=== PATIENT | male | born 1980 ===

== ENCOUNTER 2020-02-24 08:59 | Outpatient (REF) | payer BC, SELFPAY ==
--- NOTE | 2020-02-24 09:22 | XR_ITS ---
EXAMINATION: XR KNEE, RIGHT CLINICAL INFORMATION: Pain COMPARISON: 05/19/2019 TECHNIQUE: Lateral and patella sunrise view of the right knee. FINDINGS: Bones and soft tissues are normal. No fracture or joint effusion. Alignment is anatomic. Joint spaces are well maintained. No abnormal soft tissue calcification. XR/XR knee RT 2V IMPRESSION: Limited lateral and patella sunrise view. No significant joint effusion.
== END 2020-02-24 09:00 | disposition home or self-care (01) ==
LOC: HO.HOSX 08:59
PROVIDERS: PCP Internal Medicine; Visit Provider Physician Assistant
DX: M17.11 Unilateral primary osteoarthritis, right knee (principal)
CPT/HCPCS: 73560

== ENCOUNTER → 2020-02-29 12:30 | Outpatient (BNVA) | payer BC, SELFPAY | PROVIDERS: PCP Internal Medicine; Referring Provider Internal Medicine; Visit Provider Orthopaedic Surgery | DX: M22.2X2 Patellofemoral disorders, left knee (principal); S83.242D Other tear of medial meniscus, current injury, left knee, subsequent encounter | CPT/HCPCS: 20610; J1040 ==

== ENCOUNTER 2020-05-09 14:53 | Outpatient (REF) | payer BC, SELFPAY ==
[2020-05-09 15:27] LABS: MANUAL DIFF FLAG NO
[2020-05-09 15:32] LABS: Basophils Percent Auto 0.3 % (0-2); Eosinophils Absolute Auto 0.2 X10*3/uL (0.0-0.4); Eosinophils Percent Auto 1.8 % (0-4); Hematocrit 42.1 % (42-52); Hemoglobin 14.5 g/dl (14.0-18.0); Imm Gran Abs Auto 0.04 X10*3/uL (0.00-0.03); Imm Gran Pct Auto 0.4 % (0.0-0.4); Lymphocytes Percent Auto 31.5 % (20-40); Mean Corpuscular HGB Conc 34.4 g/dl (31.0-36.0); Mean Corpuscular Hemoglobin 29.4 pg (27.0-33.0); Mean Corpuscular Volume 85.4 fL (80-98); Mean Platelet Volume 9.8 fL (9.4-12.4); Monocytes Absolute Auto 0.6 X10*3/uL (0.1-1.2); Neutrophils Absolute Auto 5.7 X10*3/uL (2.0-8.3); Platelet Count 248 X10*3/uL (160-400); Red Blood Count 4.93 X10*6/uL (4.60-5.80); Red Cell Distribution Width 12.5 % (11.0-16.0); White Blood Count 9.5 X10*3/uL (4.8-10.8)
[2020-05-09 15:47] LABS: Glucose Urine UA NEG (NEG); Leukocyte Esterase Urine NEG (NEG); Nitrite Urine NEG (NEG); PH 5.5 (5.0-8.0); Specific Gravity - Urine >= 1.030 (1.005-1.025); Urine Blood NEG (NEG); Urine Ketones NEG (NEG); Urine Protein NEG (NEG-TRACE)
[2020-05-09 15:51] LABS: Appearance Urine CLEAR; Color Urine YELLOW
[2020-05-09 15:59] LABS: Alanine Aminotransferase 30 U/L (0-40); Albumin Level 4.7 g/dL (3.5-5.0); Alkaline Phosphatase 86 U/L (39-117); Anion Gap 15 (12-20); Aspartate Amino Transferase 19 U/L (5-37); Bilirubin Total 1.4 mg/dL (0.0-1.0); Blood Urea Nitrogen 12 mg/dL (9-16); Calcium 9.2 mg/dL (8.4-10.2); Carbon Dioxide 23 mmol/L (22-29); Chloride 103 mmol/L (96-108); Cholesterol 181 mg/dL; Estimated Glomerular Filt Rate > 60; Glucose Fasting 79 mg/dL (60-99); HDL Cholesterol 38 mg/dL; LDL Cholesterol Calculated 113 mg/dl; Potassium 4.3 mmol/l (3.3-5.1); Sodium 137 mmol/L (135-145); Total Protein 7.9 g/dL (6.5-8.0); Triglycerides 154 mg/dL
[2020-05-09 16:19] LABS: Prostate Specific Antigen Scr 0.31 ng/mL (<0.05-4.0)
[2020-05-09 16:47] LABS: Reflex LDLD? No
== END 2020-05-09 14:54 | disposition home or self-care (01) ==
LOC: HO.LAB 14:53
PROVIDERS: PCP Internal Medicine; Visit Provider Internal Medicine
DX: Z00.00 Encounter for general adult medical examination without abnormal findings (principal); I10 Essential (primary) hypertension; Z12.5 Encounter for screening for malignant neoplasm of prostate
CPT/HCPCS: 36415; 80053; 80061; 81003; 84153; 85025

== ENCOUNTER 2020-11-06 10:19 | Outpatient (REF) | payer BC, SELFPAY ==
[2020-11-06 11:27] LABS: Alanine Aminotransferase 22 U/L (0-40); Albumin Level 4.5 g/dL (3.5-5.0); Alkaline Phosphatase 88 U/L (39-117); Aspartate Amino Transferase 17 U/L (5-37); Bilirubin Direct 0.6 mg/dL (0.0-0.5); Bilirubin Total 1.9 mg/dL (0.0-1.0); Cholesterol 158 mg/dL; HDL Cholesterol 33 mg/dL; LDL Cholesterol Calculated 97 mg/dl; Total Protein 7.6 g/dL (6.5-8.0); Triglycerides 142 mg/dL
[2020-11-06 11:55] LABS: Reflex LDLD? No
== END 2020-11-06 10:20 | disposition home or self-care (01) ==
LOC: HO.LNP 10:19
PROVIDERS: Visit Provider Internal Medicine
DX: E78.00 Pure hypercholesterolemia, unspecified (principal)
CPT/HCPCS: 80061; 80076

== ENCOUNTER 2021-07-16 15:36 | Outpatient (REF) | payer BC, SELFPAY ==
[2021-07-16 15:41] LABS: MANUAL DIFF FLAG NO
[2021-07-16 15:51] LABS: Appearance Urine CLEAR; Color Urine YELLOW; Glucose Urine UA NEG (NEG); Leukocyte Esterase Urine NEG (NEG); Nitrite Urine NEG (NEG); Specific Gravity - Urine 1.015 (1.005-1.025); Urine Blood NEG (NEG); Urine Ketones NEG (NEG); Urine Protein NEG (NEG-TRACE)
[2021-07-16 15:57] LABS: Alanine Aminotransferase 26 U/L (0-40); Albumin Level 4.6 g/dL (3.5-5.0); Alkaline Phosphatase 68 U/L (39-117); Anion Gap 13 (12-20); Aspartate Amino Transferase 17 U/L (5-37); Bilirubin Total 1.6 mg/dL (0.0-1.0); Blood Urea Nitrogen 12 mg/dL (9-16); Calcium 9.4 mg/dL (8.4-10.2); Carbon Dioxide 25 mmol/L (22-29); Chloride 104 mmol/L (96-108); Cholesterol 166 mg/dL; Estimated Glomerular Filt Rate > 60; Glucose Random 81 mg/dL (60-115); HDL Cholesterol 33 mg/dL; LDL Cholesterol Calculated 100 mg/dl; Potassium 3.9 mmol/L (3.3-5.1); Sodium 138 mmol/L (135-145); Total Protein 7.6 g/dL (6.5-8.0); Triglycerides 169 mg/dL
[2021-07-16 16:07] LABS: Basophils Percent Auto 0.2 % (0-2); Eosinophils Absolute Auto 0.1 X10*3/uL (0.0-0.4); Eosinophils Percent Auto 1.5 % (0-4); Hematocrit 40.8 % (42.0-52.0); Hemoglobin 14.2 g/dl (14.0-18.0); Imm Gran Abs Auto 0.02 X10*3/uL (0.00-0.03); Imm Gran Pct Auto 0.2 % (0.0-0.4); Lymphocytes Absolute Auto 3.2 X10*3/uL (1.2-4.9); Lymphocytes Percent Auto 37.4 % (20-40); Mean Corpuscular HGB Conc 34.8 g/dl (31.0-36.0); Mean Corpuscular Hemoglobin 29.5 pg (27.0-33.0); Mean Corpuscular Volume 84.8 fL (80.0-98.0); Mean Platelet Volume 10.1 fL (9.4-12.4); Monocytes Absolute Auto 0.6 X10*3/uL (0.1-1.2); Monocytes Percent Auto 6.6 % (2-11); Neutrophils Absolute Auto 4.7 x10*3/uL (2.0-8.3); Neutrophils Percent Auto 54.1 % (45-73); Platelet Count 229 X10*3/uL (160-400); Red Blood Count 4.81 X10*6/uL (4.60-5.80); Red Cell Distribution Width 12.7 % (11.0-16.0); White Blood Count 8.6 X10*3/uL (4.8-10.8)
== END 2021-07-16 15:37 | disposition home or self-care (01) ==
LOC: HO.LNP 15:36
PROVIDERS: Visit Provider Internal Medicine
DX: Z00.00 Encounter for general adult medical examination without abnormal findings (principal); I10 Essential (primary) hypertension; E78.00 Pure hypercholesterolemia, unspecified
CPT/HCPCS: 80053; 80061; 81003; 84153; 85025

== ENCOUNTER → 2021-09-30 10:07 | Outpatient (BNVA) | payer SELFPAY | PROVIDERS: PCP Internal Medicine; Visit Provider Physician Assistant Medical | DX: Z02.79 Encounter for issue of other medical certificate (principal) ==

== ENCOUNTER 2022-07-18 11:44 | Outpatient (REF) | payer OTHER, SELFPAY ==
[2022-07-18 11:46] LABS: MANUAL DIFF FLAG NO
[2022-07-18 12:35] LABS: Basophils Percent Auto 0.3 % (0-2); Eosinophils Absolute Auto 0.2 X10*3/uL (0.0-0.4); Eosinophils Percent Auto 2.5 % (0-4); Hematocrit 42.4 % (42.0-52.0); Hemoglobin 14.7 g/dl (14.0-18.0); Imm Gran Abs Auto 0.02 X10*3/uL (0.00-0.03); Imm Gran Pct Auto 0.3 % (0.0-0.4); Lymphocytes Absolute Auto 1.7 X10*3/uL (1.2-4.9); Lymphocytes Percent Auto 27.2 % (20-40); Mean Corpuscular HGB Conc 34.7 g/dl (31.0-36.0); Mean Corpuscular Hemoglobin 30.5 pg (27.0-33.0); Mean Platelet Volume 10.5 fL (9.4-12.4); Monocytes Absolute Auto 0.5 X10*3/uL (0.1-1.2); Monocytes Percent Auto 8.3 % (2-11); Neutrophils Absolute Auto 3.9 x10*3/uL (2.0-8.3); Neutrophils Percent Auto 61.4 % (45-73); Platelet Count 224 X10*3/uL (160-400); Red Blood Count 4.82 X10*6/uL (4.60-5.80); Red Cell Distribution Width 12.7 % (11.0-16.0); White Blood Count 6.4 X10*3/uL (4.8-10.8)
[2022-07-18 12:44] LABS: Appearance Urine Clear; Color Urine Yellow; Glucose Urine UA Negative (Negative); Leukocyte Esterase Urine Negative (Negative); Nitrite Urine Negative (Negative); PH 5.5 (5.0-9.0); Specific Gravity - Urine 1.025 (1.005-1.025); Urine Blood Negative (Negative); Urine Ketones Negative (Negative); Urine Protein Negative (Neg-Trace)
[2022-07-18 12:49] LABS: Bacteria Urine None Seen (None Seen); Hyaline Casts Urine 0-2 /LPF (0-2); RBC Urine 0-2 /HPF (0-2); Squamous Epithelial Cell Urine 0-2 /HPF (0-2); WBC Urine 0-5 /HPF (0-5)
[2022-07-18 13:09] LABS: Alanine Aminotransferase 23 U/L (0-40); Albumin Level 4.3 g/dL (3.5-5.0); Alkaline Phosphatase 72 U/L (39-117); Anion Gap 8 (12-20); Aspartate Amino Transferase 14 U/L (5-37); Blood Urea Nitrogen 19 mg/dL (9-16); Calcium 8.9 mg/dL (8.4-10.2); Carbon Dioxide 29 mmol/L (22-29); Chloride 107 mmol/L (96-108); Cholesterol 180 mg/dL; Estimated Glomerular Filt Rate > 60; Glucose Fasting 101 mg/dL (60-99); HDL Cholesterol 37 mg/dL; LDL Cholesterol Calculated 119 mg/dl; PSA,Total (Free>4and<10) 0.38 ng/mL (0.00-4.00); Potassium 4.3 mmol/L (3.3-5.1); Sodium 140 mmol/L (135-145); Triglycerides 121 mg/dL
== END 2022-07-18 11:45 | disposition home or self-care (01) ==
LOC: HO.LNP 11:44
PROVIDERS: Visit Provider Internal Medicine
DX: Z00.00 Encounter for general adult medical examination without abnormal findings (principal); Z12.5 Encounter for screening for malignant neoplasm of prostate; E78.00 Pure hypercholesterolemia, unspecified; I10 Essential (primary) hypertension
CPT/HCPCS: 80053; 80061; 81001; 84153; 85025

== ENCOUNTER → 2022-10-28 08:33 | Outpatient (BNVA) | payer SELFPAY | PROVIDERS: PCP Internal Medicine; Visit Provider Physician Assistant Medical | DX: Z02.79 Encounter for issue of other medical certificate (principal) ==

== ENCOUNTER 2022-11-04 11:44 | Outpatient (REF) | payer OTHER, SELFPAY ==
[2022-11-10 16:03] LABS: Testosterone, Total 320 ng/dL (250-1100)
== END 2022-11-04 11:45 | disposition home or self-care (01) ==
LOC: HO.LNP 11:44
PROVIDERS: Visit Provider Internal Medicine
DX: R53.83 Other fatigue (principal)
CPT/HCPCS: 84402; 84403

== ENCOUNTER 2022-12-08 08:33 | Outpatient (AMB) | payer OTHER, SELFPAY ==
--- NOTE | 2022-12-08 08:36 | A.OFFVIS_ITS ---
Intake Vital Signs 12/08/22 08:38 Weight 236 lb BP 102/72 Blood Pressure Location Lt brachial Position Sitting Pulse 60 Pulse Source Pulse Oximeter Pulse Oximetry (%) 99 Oxygen Delivery Method Room Air Intake Visit Reasons: 1 yr f/u cpap - LVM Intake Note: F/U SONIA Tie Sawyer Required: No Allergies No Known Allergies [No Known Allergies*] Allergy (Verified 12/08/22 08:37) HPI HPI Comments History of Present Illness Details 42 y/o male patient presents for follow up of SONIA on CPAP. The CPAP compliance and therapy response (08/29/22-11/26/22) reviewed with the patient. He is on APAP [id number]. The usage days 92% and the average usage hours 7 hrs. The median pressure was 10 and the AHI was 1.2/hr. Pt reports he can sleep about 7 hrs. His sleep quality has improve, and feels refreshed in the morning. . He has not received supplies for a while, and he did not contact his home care company yet. Pt reports he lost 20 lb since the last sleep study. [facility] Medical History History of anal fissures Social History Alcohol intake: never Patient Tobacco Use Status: Never used Tobacco Current occupation: Teacher - right handed Review of Systems Const All systems reviewed & are unremarkable except as noted in HPI and below Physical Exam Vital Signs: Last Vital Signs Pulse 60 12/08/22 08:38 BP 102/72 12/08/22 08:38 Pulse Ox 99 12/08/22 08:38 Oxygen Delivery Method Room Air 12/08/22 08:38 Const General: cooperative, healthy appearing and comfortable Nutritional Appearance: overweight Orientation/consciousness: patient oriented x3 HEENT Head: Yes normal to inspection, Yes normocephalic and Yes atraumatic Face and sinus: Yes normal facial exam Neuro General: patient oriented x3, tone normal, moves all extremities, Normal light touch and pain sensation and no focal motor deficits Assessment & Plan Assessment & Plan (1) Obstructive sleep apnea: Code(s): G47.33 - Obstructive sleep apnea (adult) (pediatric) Plan Continue CPAP 5-20 cmH2O. Compliance stressed, use CPAP nightly and more than 4 hours. Will consider to repeat sleep study if he lost >10 % his weight. [facility] information provided. Coding Level of Care Code Est Pt Level 3 (02609) Diagnoses Obstructive sleep apnea G47.33
[2022-12-08 08:38] VITALS: BP 102/72; PULSE 60; O2SAT 99
== END 2022-12-08 09:01 | disposition home or self-care (01) ==
PROVIDERS: PCP Internal Medicine; Visit Provider Nurse Practitioner Family
DX: G47.33 Obstructive sleep apnea (adult) (pediatric) (principal)
CPT/HCPCS: 99213

== ENCOUNTER → 2022-12-08 08:33 | Outpatient (BNVA) | payer OTHER, SELFPAY | PROVIDERS: PCP Internal Medicine; Visit Provider Nurse Practitioner Family | DX: G47.33 Obstructive sleep apnea (adult) (pediatric) (principal) ==

== ENCOUNTER 2023-03-09 10:33 | Outpatient (REF) | payer OTHER, SELFPAY ==
[2023-03-09 11:44] LABS: Alanine Aminotransferase 23 U/L (0-40); Albumin Level 4.4 g/dL (3.5-5.0); Alkaline Phosphatase 60 U/L (39-117); Aspartate Amino Transferase 20 U/L (5-37); Bilirubin Direct 0.2 mg/dL (0.0-0.5); Bilirubin Total 0.9 mg/dL (0.0-1.0); Total Protein 7.6 g/dL (6.5-8.0)
[2023-03-09 11:48] LABS: Cholesterol 180 mg/dL (<200); HDL Cholesterol 42 mg/dL (>40); LDL Cholesterol Calculated 114 mg/dL (<100); Triglycerides 120 mg/dL (<150)
[2023-03-09 11:51] LABS: Reflex LDLD? No
== END 2023-03-09 10:34 | disposition home or self-care (01) ==
LOC: HO.LNP 10:33
PROVIDERS: Visit Provider Internal Medicine
DX: E78.00 Pure hypercholesterolemia, unspecified (principal)
CPT/HCPCS: 80061; 80076

== ENCOUNTER 2023-03-19 12:21 | Outpatient (REF) | payer OTHER, SELFPAY ==
--- NOTE | ~2023-03-19 | XR_ITS ---
EXAMINATION: XR TIBIA AND FIBULA, LEFT CLINICAL INFORMATION: Bone cyst of tibia. COMPARISON: Prior radiographs, most recently 05/19/2019. TECHNIQUE: AP and lateral views of the left tibia and fibula were obtained. FINDINGS: Bony alignment and mineralization are normal. Again seen in the proximal tibial shaft is a 5.1 x 1.8 x 1.7 cm sclerotic, flocculent lesion. On 05/19/2019, this measured approximately 4.2 x 1.6 cm. No dislocation is seen. The articulations at the knee and ankle are unremarkable. A tiny posterior calcaneal spur is seen. No joint effusion is noted. There is no focal soft tissue swelling, gas or foreign body. XR/XR tibia fibula LT 2V IMPRESSION: There is mild interim increase in size of a sclerotic density within the proximal left tibial shaft, possibly an enchondroma or old bone infarction. If of clinical concern (i.e., history of pain at this location or known malignancy), this can be further evaluated with MRI.
== END 2023-03-19 12:22 | disposition home or self-care (01) ==
LOC: HO.XRAY 12:21
PROVIDERS: PCP Internal Medicine; Visit Provider Internal Medicine
DX: M85.662 Other cyst of bone, left lower leg (principal)
CPT/HCPCS: 73590

== ENCOUNTER 2023-09-03 11:46 | Outpatient (REF) | payer OTHER, SELFPAY ==
[2023-09-03 11:57] LABS: MANUAL DIFF FLAG NO
[2023-09-03 12:15] LABS: Appearance Urine Clear; Color Urine Yellow; Glucose Urine UA Negative (Negative); Leukocyte Esterase Urine Negative (Negative); Nitrite Urine Negative (Negative); PH 5.5 (5.0-9.0); Specific Gravity - Urine 1.025 (1.005-1.025); Urine Blood Negative (Negative); Urine Ketones Negative (Negative); Urine Protein Negative (Neg-Trace)
[2023-09-03 12:16] LABS: Basophils Percent Auto 0.3 % (0-2); Eosinophils Absolute Auto 0.3 X10*3/uL (0.0-0.4); Eosinophils Percent Auto 4.5 % (0-4); Hematocrit 45.1 % (42.0-52.0); Hemoglobin 15.6 g/dl (14.0-18.0); Imm Gran Abs Auto 0.02 X10*3/uL (0.00-0.03); Imm Gran Pct Auto 0.3 % (0.0-0.4); Lymphocytes Absolute Auto 2.2 X10*3/uL (1.2-4.9); Lymphocytes Percent Auto 35.4 % (20-40); Mean Corpuscular HGB Conc 34.6 g/dl (31.0-36.0); Mean Corpuscular Hemoglobin 30.1 pg (27.0-33.0); Mean Corpuscular Volume 86.9 fL (80.0-98.0); Monocytes Absolute Auto 0.5 X10*3/uL (0.1-1.2); Monocytes Percent Auto 7.9 % (2-11); Neutrophils Absolute Auto 3.2 x10*3/uL (2.0-8.3); Neutrophils Percent Auto 51.6 % (45-73); Platelet Count 244 X10*3/uL (160-400); Red Blood Count 5.19 X10*6/uL (4.60-5.80); Red Cell Distribution Width 13.2 % (11.0-16.0); White Blood Count 6.2 X10*3/uL (4.8-10.8)
[2023-09-03 12:26] LABS: Bacteria Urine None Seen (None Seen); Hyaline Casts Urine 0-2 /LPF (0-2); RBC Urine 0-2 /HPF (0-2); Squamous Epithelial Cell Urine 0-2 /HPF (0-2); WBC Urine 0-5 /HPF (0-5)
[2023-09-03 12:56] LABS: Alanine Aminotransferase 28 U/L (0-40); Albumin Level 4.6 g/dL (3.5-5.0); Alkaline Phosphatase 79 U/L (39-117); Anion Gap 13 (12-20); Aspartate Amino Transferase 23 U/L (5-37); Blood Urea Nitrogen 15 mg/dL (9-16); Calcium 9.5 mg/dL (8.4-10.2); Carbon Dioxide 25 mmol/L (22-29); Chloride 105 mmol/L (96-108); Cholesterol 172 mg/dL (<200); Estimated Glomerular Filt Rate > 60; Glucose Fasting 96 mg/dL (60-99); HDL Cholesterol 43 mg/dL (>40); LDL Cholesterol Calculated 105 mg/dL (<100); Potassium 4.2 mmol/L (3.3-5.1); Sodium 139 mmol/L (135-145); Total Protein 8.1 g/dL (6.5-8.0); Triglycerides 123 mg/dL (<150)
== END 2023-09-03 11:47 | disposition home or self-care (01) ==
LOC: HO.LNP 11:46
PROVIDERS: Visit Provider Internal Medicine
DX: Z00.00 Encounter for general adult medical examination without abnormal findings (principal); I10 Essential (primary) hypertension; E78.00 Pure hypercholesterolemia, unspecified; Z12.5 Encounter for screening for malignant neoplasm of prostate
CPT/HCPCS: 80053; 80061; 81001; 84153; 85025

== ENCOUNTER → 2023-10-26 08:02 | Outpatient (BNVA) | payer SELFPAY | PROVIDERS: PCP Internal Medicine; Visit Provider Internal Medicine | DX: Z02.79 Encounter for issue of other medical certificate (principal) ==

== ENCOUNTER → 2024-01-04 15:32 | Outpatient (BNVA) | payer OTHER, SELFPAY | PROVIDERS: Absent Provider Nurse Practitioner Family; PCP Internal Medicine; Visit Provider Nurse Practitioner Family | DX: G47.33 Obstructive sleep apnea (adult) (pediatric) (principal) ==

== ENCOUNTER → 2024-09-06 08:29 | Outpatient (RCR) | payer BC, SELFPAY ==
--- NOTE | 2020-03-23 18:07 | MHC.PT.EP ---
[facility] [place] Office [place] Office [place] Office [address] Moon Fuentes [address] [phone] F: [phone] F: [phone] F: [phone] F: [phone] Physical Therapy Plan of Care Date of Evaluation: 03/22/20 Date of Surgery: Diagnosis: Unilateral OA of R knee. 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 Pt is deemed an appropriate candidate to receive skilled PT in order to address his physical limitations to improve his functional ability. Frequency and Duration: The patient will be seen 2 x / wk x 5 wks. Short Term Goals: In 1 week: initiate HEP with evidence of compliance. in 3 weeks: TTP of R medial knee < 2+ (moderate); initial: 3+ (considerable) Usp Goals: In 5 weeks: improve R knee extension MMT to > 4+/5; initial: 4/5 with apprehension and mild pain. In 5 weeks: Pt will report no difficulty performing heavy activities at home d/t R knee pain; initial: moderate difficulty (LEFS). Treatment Plan: Modalities to reduce pain, spasms and effusion. Manual therapy to restore motion and function. Therapeutic exercise to improve strength and flexibility. Neuromuscular re-education for posture and balance. Therapeutic activities to return to functional activities of daily living. Please sign and return to therapist. Thank you for your referral.
--- NOTE | 2020-05-10 19:48 | MHC.PT.DC ---
[facility] [place] Office [place] Office [place] Office [address] Moon Fuentes 140 [facility] [phone] F: [phone] F: [phone] F: [phone] F: [phone] Physical Therapy Discharge Report Diagnosis: Unilateral OA of R knee. Date of Surgery: Date of Evaluation: 03/22/20 Date of Discharge: 05/10/20 Treatments to Date: 13 Cancellations to Date: 0 No Shows to Date: 0 Discharge Status: Achieved Goals Improved Function Independent with HEP Discharge Summary: Wilmar has been an active participant in his therapy in the clinic with inconsistent home program compliance who has met all of his therapeutic goals, he is I with hos home program and is in agreement with DC at this time. Subjective Lower Extremity Functional Index improved from 65% to 88% functional and he will be following up with a referral for orthotics. Electronically signed by: Mikey Oscar PT. Please sign and return to therapist. Thank you for your referral.
== END | disposition home or self-care (01) ==
LOC: HO.PTCHIC 03-22 15:57
PROVIDERS: PCP Internal Medicine; Visit Provider Physician Assistant
DX: M17.11 Unilateral primary osteoarthritis, right knee (principal)
CPT/HCPCS: 97014; 97110; 97140; 97161

== ENCOUNTER 2024-09-09 07:15 | Outpatient (REF) | payer OTHER, SELFPAY ==
--- OUTSIDE RECORDS SUMMARY | 2024-09-09 11:00 | XMS_ITS ---
Author Organization [facility] [address] Address [address] [place] [address] Care Team Providers Care Celery Cutter Name Role Phone Goldy Engel Primary Care Provider UnavailISIDRO [facility] [phone] Encounters Encounter Location Date Provider Diagnosis [facility] [address] [place] [address] 08/12/2024 ISIDRO ARRIOLA Plan Of Treatment Next Appt Details Provider Name:ISIDRO Antonio, 09/21/2024 08:15:00 AM, [address], [address], [place], [address], Progress Notes * Wilmar STACKDOB:1980 (44 yo M)Acc No.[id number]:08/12/2024 Patient:?SEDABritney SWARTZusz Provider:?ISIDRO ARRIOLA PA-C :1980???Age:44 Y???Sex:Male Issa e:08/12/2024 Address:[place] [address] Pcp:Goldy Engel Subjective: * Chief Complaints: * ??? * Medical History:? Objective: * Vitals:? Assessment: Plan: * Treatment: * Images: Billing Information: * Visit Code:? * Procedure Codes:? * Electronic signature of DENI ARRIOLA PA-C on 09/09/2024 at 11:00 AM EDT Sign off status: Pending * Provider:?ISIDRO ARRIOLA PA-C Date:? Generated for Donna reid/June/eTransmitting on:?09/09/2024 11:00 AM EDT
[2024-09-09 11:01] LABS: MANUAL DIFF FLAG NO
[2024-09-09 11:34] LABS: Appearance Urine Clear; Color Urine Yellow; Glucose Urine UA Negative (Negative); Leukocyte Esterase Urine Negative (Negative); Nitrite Urine Negative (Negative); PH 5.5 (5.0-9.0); Specific Gravity - Urine 1.015 (1.005-1.025); UMIC TRIGGER UACC YES; Urine Blood Large (3+) (Negative); Urine Ketones Negative (Negative); Urine Protein Negative (Neg-Trace)
[2024-09-09 11:36] LABS: Bacteria Urine None Seen (None Seen); Hyaline Casts Urine 0-2 /LPF (0-2); RBC Urine >20 /HPF (0-2); Squamous Epithelial Cell Urine 0-2 /HPF (0-2); WBC Urine 0-5 /HPF (0-5)
[2024-09-09 11:39] LABS: Basophils Percent Auto 0.4 % (0-2); Eosinophils Absolute Auto 0.4 X10*3/uL (0.0-0.4); Eosinophils Percent Auto 5.8 % (0-4); Hematocrit 42.3 % (42.0-52.0); Hemoglobin 14.9 g/dl (14.0-18.0); Imm Gran Abs Auto 0.02 X10*3/uL (0.00-0.03); Imm Gran Pct Auto 0.3 % (0.0-0.4); Lymphocytes Absolute Auto 1.7 X10*3/uL (1.2-4.9); Lymphocytes Percent Auto 24.7 % (20-40); Mean Corpuscular HGB Conc 35.2 g/dl (31.0-36.0); Mean Corpuscular Hemoglobin 30.6 pg (27.0-33.0); Mean Corpuscular Volume 86.9 fL (80.0-98.0); Mean Platelet Volume 9.9 fL (9.4-12.4); Monocytes Absolute Auto 0.5 X10*3/uL (0.1-1.2); Monocytes Percent Auto 6.9 % (2-11); Neutrophils Absolute Auto 4.3 x10*3/uL (2.0-8.3); Neutrophils Percent Auto 61.9 % (45-73); Platelet Count 246 X10*3/uL (160-400); Red Blood Count 4.87 X10*6/uL (4.60-5.80); Red Cell Distribution Width 13.3 % (11.0-16.0); White Blood Count 6.9 X10*3/uL (4.8-10.8)
[2024-09-09 11:58] LABS: Alanine Aminotransferase 20 U/L (0-40); Albumin Level 4.9 g/dL (3.5-5.0); Alkaline Phosphatase 54 U/L (39-117); Anion Gap 11 (12-20); Aspartate Amino Transferase 21 U/L (5-37); Bilirubin Total 2.8 mg/dL (0.0-1.0); Blood Urea Nitrogen 10 mg/dL (9-16); Calcium 10.6 mg/dL (8.4-10.2); Carbon Dioxide 27 mmol/L (22-29); Chloride 107 mmol/L (96-108); Cholesterol 142 mg/dL (<200); Estimated Glomerular Filt Rate > 60; Glucose Fasting 82 mg/dL (60-99); HDL Cholesterol 45 mg/dL (>40); LDL Cholesterol Calculated 80 mg/dL (<100); Potassium 4.3 mmol/L (3.3-5.1); Sodium 141 mmol/L (135-145); Total Protein 7.9 g/dL (6.5-8.0); Triglycerides 85 mg/dL (<150)
[2024-09-09 12:09] LABS: PSA,Total (Free>4and<10) 0.53 ng/mL (0.00-4.00)
== END 2024-09-09 07:16 | disposition home or self-care (01) ==
LOC: HO.LNP 07:15
PROVIDERS: Visit Provider Internal Medicine
DX: Z00.00 Encounter for general adult medical examination without abnormal findings (principal); I10 Essential (primary) hypertension; Z12.5 Encounter for screening for malignant neoplasm of prostate
CPT/HCPCS: 80053; 80061; 81001; 84153; 85025

== ENCOUNTER 2024-09-16 10:19 | Outpatient (REF) | payer OTHER, SELFPAY ==
--- OUTSIDE RECORDS SUMMARY | 2024-09-16 11:00 | XMS_ITS ---
Author Organization [facility] [address] Address [address] [place] [address] Care Team Providers Care Equity Research Analyst Name Role Phone Goldy Engel Primary Care Provider UnavailISIDRO Morton [facility] [phone] Encounters Encounter Location Date Provider Diagnosis [facility] [address] [place] [address] 08/12/2024 ISIDRO ARRIOLA Plan Of Treatment Next Appt Details Provider Name:ISIDRO Antonio, 09/30/2024 09:45:00 AM, [address], [address], [place], [address], Progress Notes * Wilmar STACKDOB:1980 (44 yo M)Acc No.[id number]:08/12/2024 Patient:?Britney STACKusz Provider:?ISIDRO ARRIOLA PA-C :1980???Age:44 Y???Sex:Male Issa e:08/12/2024 Address:[place] [address] Pcp:Goldy Engel Subjective: * Chief Complaints: * ??? * Medical History:? Objective: * Vitals:? Assessment: Plan: * Treatment: * Images: Billing Information: * Visit Code:? * Procedure Codes:? * Electronic signature of DENI ARRIOLA PA-C on 09/16/2024 at 11:00 AM EDT Sign off status: Pending * Provider:?ISIDRO ARRIOLA PA-C Date:? Generated for Donna reid/June/eTransmitting on:?09/16/2024 11:00 AM EDT
[2024-09-16 11:19] LABS: Appearance Urine Clear; Color Urine Yellow; Glucose Urine UA Negative (Negative); Leukocyte Esterase Urine Negative (Negative); Nitrite Urine Negative (Negative); PH 7.5 (5.0-9.0); Urine Blood Negative (Negative); Urine Ketones Negative (Negative); Urine Protein Negative (Neg-Trace)
[2024-09-16 11:33] LABS: Bacteria Urine None Seen (None Seen); Hyaline Casts Urine 0-2 /LPF (0-2); RBC Urine 0-2 /HPF (0-2); Squamous Epithelial Cell Urine 0-2 /HPF (0-2); WBC Urine 0-5 /HPF (0-5)
[2024-09-16 12:44] LABS: Alanine Aminotransferase 17 U/L (0-40); Albumin Level 4.8 g/dL (3.5-5.0); Alkaline Phosphatase 50 U/L (39-117); Aspartate Amino Transferase 20 U/L (5-37); Bilirubin Direct 0.4 mg/dL (0.0-0.5); Bilirubin Total 1.3 mg/dL (0.0-1.0); Calcium 9.6 mg/dL (8.4-10.2); Total Protein 7.6 g/dL (6.5-8.0)
== END 2024-09-16 10:20 | disposition home or self-care (01) ==
LOC: HO.LNP 10:19
PROVIDERS: Visit Provider Internal Medicine
DX: Z00.00 Encounter for general adult medical examination without abnormal findings (principal); R17 Unspecified jaundice; R31.9 Hematuria, unspecified; E83.52 Hypercalcemia
CPT/HCPCS: 80076; 81001; 82310

== ENCOUNTER 2024-09-27 09:54 | Outpatient (REF) | payer OTHER, SELFPAY ==
[2024-09-27 10:07] LABS: Appearance Urine Clear; Color Urine Yellow; Glucose Urine UA Negative (Negative); Leukocyte Esterase Urine Negative (Negative); Nitrite Urine Negative (Negative); Specific Gravity - Urine 1.015 (1.005-1.025); Urine Blood Negative (Negative); Urine Ketones Negative (Negative); Urine Protein Negative (Neg-Trace)
[2024-09-27 10:16] LABS: Bacteria Urine None Seen (None Seen); Hyaline Casts Urine 0-2 /LPF (0-2); RBC Urine 0-2 /HPF (0-2); Squamous Epithelial Cell Urine 0-2 /HPF (0-2); WBC Urine 0-5 /HPF (0-5)
--- OUTSIDE RECORDS SUMMARY | 2024-09-27 11:13 | XMS_ITS ---
Author Organization Goldy Engel MD Address [address] [place], [place] [id number] Care Team Providers Care Production Graphic Designer Name Role Phone MarenGladysn Primary Care Provider Results Component Value Reference Range Notes Complete Blood Count Auto Di ff Reviewed date:09/09/2024 01:19:30 PM Interpretation: Performing Lab:[facility], [address] [place] [phone] Notes/Report: White Blood Count 6.9 4.8-10.8 X10*3/uL Red Blood Count 4.87 4.60-5.80 X10*6/uL Hemoglobin 14.9 14.0-18.0 g/dl Hematocrit 42.3 42.0-52.0 % Mean Corpuscular Volume 86.9 80.0-98.0 fL Mean Corpuscular Hemoglobin 30.6 27.0-33.0 pg Mean Corpuscular HGB Conc 35.2 31.0-36.0 g/dl Red Cell Distribution Width 13.3 11.0-16.0 % Platelet Count 246 160-400 X10*3/uL Mean Platelet Volume 9.9 9.4-12.4 fL Neutrophils Percent Auto 61.9 45-73 % Imm Gran Pct Auto 0.3 0.0-0.4 % Lymphocytes Percent Auto 24.7 20-40 % Monocytes Percent Auto 6.9 2-11 % Eosinophils Percent Auto 5.8 0-4 % Basophils Percent Auto 0.4 0-2 % NRBC Pct Auto 0.0 0.0-0.2 /100WBC Neutrophils Absolute Auto 4.3 2.0-8.3 x10*3/u L Imm Gran Abs Auto 0.02 0.00-0.03 X10*3/uL Lymphocytes Absolute Auto 1.7 1.2-4.9 X10*3/u L Monocytes Absolute Auto 0.5 0.1-1.2 X10*3/uL Eosinophils Absolute Auto 0.4 0.0-0.4 X10*3/u L Basophils Absolute Auto 0.0 0.0-0.2 X10*3/uL NRBC Abs Auto 0.000 0.0-0.012 X10*3/uL [facility] [place]. Panel Fa st Reviewed date:09/09/2024 04:24:47 PM Interpretation: Performing Lab:[facility], [address] [place] [phone] Notes/Report: Sodium 141 135-145 mmol/L Potassium 4.3 3.3-5.1 mmol/L Chloride 107 96-108 mmol/L Carbon Dioxide 27 22-29 mmol/L Anion Gap 11 12-20 Blood Urea Nitrogen 10 9-16 mg/dL Creatinine 1.07 0.5-1.4 mg/dL Estimated Glomerular Filt Rate > 60 Chronic Kidney Disease: Estimated GFR < 60 mL/min/1.73m2 Severe Kidney Disease: Estimated GFR < 15 mL/min/1.73m2 Glucose Fasting 82 60-99 mg/dL Calcium 10.6 8.4-10.2 mg/dL Bilirubin Total 2.8 0.0-1.0 mg/dL Slight Icte emma. Aspartate Amino Transferase 21 5-37 U/L Alanine Aminotransferase 20 0-40 U/L Total Protein 7.9 6.5-8.0 g/dL Albumin Level 4.9 3.5-5.0 g/dL Alkaline Phosphatase 54 39-117 U/L Lipid Panel Reviewed date:09/09/2024 12:20:24 PM Interpretation: Performing Lab:[facility], [address] [place] [phone] Notes/Report: Triglycerides 85 <150 mg/dL Desirable Triglyceride: less than 150 mg/dL Borderline High Triglyceride 150-199 mg/dL High Triglyceride: 200-499 mg/dL Very High Triglyceride: greater than or equal to 5OO mg/dL Cholesterol 142 <200 mg/dL Desirable Cholesterol: less than 200 mg/dL Borderline High Cholesterol: 200-239 mg/dL High Cholesterol: greater than 239 mg/dL LDL Cholesterol Calculated 80 <100 mg/dL Desirable LDL: less than 100 mg/dL Near Optimal/Above Optimal LDL: 110-129 mg/dL Borderline High LDL: 130-159 mg/dL High LDL: 160-189 mg/dL Very High LDL: greater than or equal to 190 mg/dL HDL Cholesterol 45 >40 mg/dL Desirable HDL: greater than 40 mg/dL Note: This HDL assay may give artificially low results in patients with liver disease. PSA,Total (Free>4and<10) Reviewed date:09/09/2024 12:18:15 PM Interpretation: Performing Lab:[facility], [address] [place] [phone] Notes/Report: PSA,Total (Free>4and<10) 0.53 0.00-4.00 ng/mL A Free PSA was not performed: The percentage of Free PSA can be used to enhance the differentiation of prostate cancer from benign prostatic disease in subjects whose PSA levels are between 4.0 and 10.0 ng/mL. For subjects whose PSA levels are below 4.0 or above 10.0 ng/mL, the risk of prostate cancer is determined on the basis of the PSA alone. Therefore the % Free PSA is recommended only for those subjects whose PSA levels are between 4.0 and 10.0 ng/mL. PSA methodology: Jefferson Alinity i Chemiluminescent Microparticle Immunoassay (CMIA) UA ClnCatch+Micro w/rflx Cul t Reviewed date:09/16/2024 10:11:43 AM Interpretation:CBACK 09/16 URINE Performing Lab:[facility], [address] [facility], [place] [address] Notes/Report: Urine, Clean Catch Color Urine Yellow Appearance Urine Clear PH 5.5 5.0-9.0 Glucose Urine UA Negative Negative mg/dL Urine Blood Large (3+) Negative Specific [place] - Urine 1.015 1.005-1.025 Urine Protein Negative Neg-Trace mg/dL Urine Ketones Negative Negative mg/dL Nitrite Urine Negative Negative Leukocyte Esterase Urine Negative Negative RBC Urine >20 0-2 /HPF WBC Urine 0-5 0-5 /HPF Squamous Epithelial Cell Urine 0-2 0-2 /HPF Bacteria Urine None Seen None Seen Hyaline Casts Urine 0-2 0-2 /LPF REASON FOR VISIT FASTING LABS, CBACK URINE Encounters Encounter Location Date Provider Diagnosis Goldy Engel MD [address] [place] [phone] 09/09/2024 Goldy nEgel Blood tests for rout ine general physical examination Z00.00 ; Essential hypertension I10 and Hypercholesterolemia E78.00 Assessments Encounter Date Diagnosis (ICD Code) Assessment Notes Treatment Notes Treatment Clinical Notes Section Notes 09/09/2024 [address] tests [address] rout ine general physical examination (ICD-10 - Z00.00) 09/09/2024 Essential hypertensi on (ICD-10 - I10) 09/09/2024 Hypercholesterolemia (ICD-10 - E78.00) Plan Of Treatment Next Appt Details Provider Name:Goldy owens, 10/10/2024 02:00:00 PM, [address] [place] [address], [address], [phone], Provider Name:Goldy owens, 09/14/2025 07:15:00 AM, [address] [place] [address], [address], [phone], Provider Name:Goldy owens, 09/19/2025 09:30:00 AM, [address] [place] [address], [phone], Progress Notes * Wilmar STACK RDOB:[birth year] (44 yo M)Acc No.[id number]:09/09/2024 Progress Note Patient:?Wilmar STACK Provider:?Goldy Engel MD :1980???Age:44 Y???Sex:Male Issa e:09/09/2024 Address:[facility] [place] , [id number] Subjective: * Chief Complaints: * ???1. FASTING LABS. 2. CBACK URINE. * Medical History:? Objective: * Vitals:? Assessment: * Assessment: 1.?Blood tests for routine g eneral physical examination - Z00.00 (Primary)???2.?Essential hypertension - I10???3.?Hypercholesterolemia - E78.00??? Plan: * Treatment: 2.?Essential hypertension?LAB: Complete Blood Count Auto Diff (Collection Date & Time - 09/09/2024 07:15 AM) ?LAB: [facility] [place]. Panel Fast (Collection Date & Time - 09/09/2024 07:15 AM) ?LAB: Lipid Panel (Collection Date & Time - 09/09/2024 07:15 AM) ?LAB: PSA,Total (Free>4and<10) (Collection Date & Time - 09/09/2024 07:15 AM) ?LAB: UA ClnCatch+Micro w/rflx Cult (Collection Date & Time - 09/09/2024 07:15 AM) 3.?Hypercholesterolemia?LAB: Complete Blood Count Auto Diff (Collection Date & Time - 09/09/2024 07:15 AM) ?LAB: [facility] [place]. Panel Fast (Collection Date & Time - 09/09/2024 07:15 AM) ?LAB: Lipid Panel (Collection Date & Time - 09/09/2024 07:15 AM) ?LAB: PSA,Total (Free>4and<10) (Collection Date & Time - 09/09/2024 07:15 AM) ?LAB: UA ClnCatch+Micro w/rflx Cult (Collection Date & Time - 09/09/2024 07:15 AM) * Procedure Codes:?50797 VENIP UNCT, ROUTINE* * * The named appointment provid er may or may not be the originator of this progress note, and it is not deemed complete until electronically signed by the appointment provider. Sign off status: Pending * Provider:?Goldy Engel MD Date:?0 09/09/2024 Generated for Donna reid/June/Elizabethitting on:?09/27/2024 11:13 AM EDT
== END 2024-09-27 09:55 | disposition home or self-care (01) ==
LOC: HO.LNP 09:54
PROVIDERS: Visit Provider Internal Medicine
DX: R31.9 Hematuria, unspecified (principal)
CPT/HCPCS: 81001

== ENCOUNTER → 2024-10-19 08:46 | Outpatient (BNVA) | payer SELFPAY | PROVIDERS: PCP Internal Medicine; Visit Provider Physician Assistant | DX: Z02.79 Encounter for issue of other medical certificate (principal) ==

== ENCOUNTER 2024-11-17 08:18 | Outpatient (AMB) | payer OTHER, SELFPAY ==
--- OUTSIDE RECORDS SUMMARY | 2024-10-10 10:00 | XMS_ITS ---
Author Organization Goldy Engel MD Address [address] [place], [place] [id number] Care Team Providers Care Digital Sales Executive Name Role Phone Maren Goldy Primary Care Provider [phone] Allergies No Known Allergies REASON FOR VISIT 4 week Medications Medication SIG (Take, Route, Frequency, Duration) Notes Start Date End Date Status Indomethacin 50 MG 1 capsule with food or milk Orally Three times a day for 5 days 09/29/2017 Not-Taking Fluconazole 150 MG 2 tablets Oral and repeat in one week for 1 days 09/27/2020 Active Zepbound 5 MG/0.5ML 0.5 mL Subcutaneous for 30 day(s) Active Fluticasone Propionate 50 MCG/ACT 1 spray in each nostril Nasally Once a day for 30 day(s) 02/15/2021 Not-Taking Hydrocortisone-Acetic Acid 1-2 % 3 drops into affected ear Otic Three times a day for 10 day(s) 02/15/2021 Not-Taking Vital Signs Blood pressure systolic 118 mm Hg 10/11/19 25 Blood pressure diastolic 70 mm Hg 025 Height 71 in 10/10/2024 Weight 195 lbs 10/10/2024 BMI 27.19 kg/m2 10/10/2024 Encounters Encounter Location Date Provider Diagnosis Goldy Engel MD [address] [place] [phone] 10/10/2024 Goldy Engel Essential hypertension I10 and Hypercalcemia E83.52 Assessments Encounter Date Diagnosis (ICD Code) Assessment Notes Treatment Notes Treatment Clinical Notes Section Notes 10/10/2024 Essential hypertension (ICD-10 - I10) doing well after losing so much weight, will continue to monitor 10/10/2024 Hypercalcemia (ICD-10 - E83.52) has returned to normal, will continue to monitor Plan Of Treatment Treatment Notes Assessment Notes Essential hypertension doing well after losing so much weight, will continue to monitor Hypercalcemia has returned to norm al, will continue to monitor Next Appt Details Follow Up: 6 Months, Reason: Provider Name:Goldy owens, 04/07/2025 10:00:00 AM, [address] [place] [address], [address], [phone], Provider Name:Goldy owens, 09/14/2025 07:15:00 AM, [address] [place] [address], [address], [phone], Provider Name:Goldy owens, 09/19/2025 09:30:00 AM, [address] [place] [address], [phone], Progress Notes * Wilmar STACK RDOB:[birth year] (44 yo M)Acc No.[id number]:10/10/2024 Progress Notes Patient: Murphy Wilmar ELLIS Provider: Natalio Engel MD :1980 A ge:44 Y S ex:Male Date:10/10/2024 Address:[address] [place] [id number] Subjective: * Chief Complaints: * 4 week * HPI: S ymptom(s): patientis a 44 yo male here for 4 week follow up visit. * ROS: G eneral/Constitutional: Denies C hills. D enies F atigue. D enies F ever. D enies H eadache. E NT: Denies S ore throat. R espiratory: Denies C ough. D enies S hortness of breath at rest. D enies S hortness of breath with exertion. G astrointestinal: Denies D iarrhea. D enies N ausea. * Medical History: * Surgical History: * Hospitalization/Major Diagno stic Procedure: * Medications: T akingZepbound 5 MG/0.5ML Solution Auto-injector 0.5 mL Subcutaneous Fluconazole 150 MG Tablet 2 tablets Oral and repeat in one week Taking Zepbound 5 MG/0.5ML Solution Auto-injector 0.5 mL Subcutaneous Taking Fluconazole 150 MG Tablet 2 tablets Oral and repeat in one week Not-Taking/PRNIndomethacin 50 MG Capsule 1 capsule with food or milk Orally Three times a day Hydrocortisone-Acetic Acid 1-2 % Solution 3 drops into affected ear Otic Three times a day Fluticasone Propionate 50 MCG/ACT Suspension 1 spray in each nostril Nasally Once a day Medication List reviewed and reconciled with the patientNot-Taking/PRN Indomethacin 50 MG Capsule 1 capsule with food or milk Orally Three times a day Not-Taking/PRN Hydrocortisone-Acetic Acid 1-2 % Solution 3 drops into affected ear Otic Three times a day Not-Taking/PRN Fluticasone Propionate 50 MCG/ACT Suspension 1 spray in each nostril Nasally Once a day Medication List reviewed and reconciled with the patient * Allergies: N .K.D.A.yes[Allergies Verified] Objective: * Vitals: H t: 71, Wt: 195, BMI:27.19, BP:118/70, Wt-k.45. * Examination: G eneral Examination: GENERAL APPEARANCE: a lert, well hydrated, in no distress.? HEAD: n ormocephalic. EYES: e xtraocular movement full and smooth. SKIN: g ood turgor. HEART: r egular rate and rhythm, no murmurs, rubs, gallops.? LUNGS: n o wheezes, rales, rhonchi, good air movement, clear to auscultation bilaterally. Assessment: * Assessment: 1. E ssential hypertension - I10 (Primary) 2 . H ypercalcemia - E83.52 Plan: * Treatment: 2. H ypercalcemia Notes: has returned to normal, will continue to monitor * Procedure Codes: * Follow Up: 6 Months * * Sign off status: Completed true * Provider: Natalio Engel MD Date: 0 10/10/2024 Generated for Donna reid/June/Elizabethitting on: 0 11/17/2024 08:26 AM EDT History and Physical Notes * HPI (History of Present Illness) Category Sub-Category Detail Notes Category Not es Symptom(s) patientis a 44 yo male here for 4 week follow up visit Examination Category Sub-Category Detail Notes Category Not es General Examination GENERAL APPEARANCE: alert, w ell hydrated, in no distress HEAD: normocephalic EYES: extraocular movement full and smooth HEART: regular rate and rhy thm, no murmurs, rubs, gallops LUNGS: no wheezes, rales, r honchi, good air movement, clear to auscultation bilaterally SKIN: good turgor
--- OUTSIDE RECORDS SUMMARY | 2024-11-17 08:26 | XMS_ITS | Patient Health Record ---
Author Organization [facility] [address] Address [address] [place] [address] Care Team Providers [facility] [employer] Name Role Phone UrvashiGoldy lock Primary Care Provider [facility] ISIDRO Savage Unavailable [phone] Allergies No Known Allergies Results Component Value Reference Range Notes TSH CASCADE Reviewed date:02/14/2024 11:26:47 AM Interpretation: Performing Lab: Notes/Report: [facility] [employer], [place] [address] Hedis Coordinator - Avis Santos MD TSH CASCADE 2.14 0.40-4.00 uIU/ml LIPID PROFILE Reviewed date:02/14/2024 11:26:58 AM Interpretation: Performing Lab: Notes/Report: CHOLESTEROL 140 0-200 mg/dL TRIGLYCERIDES 62 0-150 mg/dL HDL CHOLESTEROL 43 >40 mg/dL LDL CALCULATED 85 0-100 mg/dL TC-HDLC RATIO 3.3 0-4.4 mg/dL CBC WITH AUTO DIFF Reviewed date:02/14/2024 11:27:17 AM Interpretation: Performing Lab: Notes/Report: Original Ordering Provider: ISIDRO ARRIOLA [facility] [employer], a member of [address] [address] Hedis Coordinator - Avis Santos MD WBC 7.0 4.8-10.8 x10-3/uL RBC 4.9 4.5-5.5 x10-6/uL HEMOGLOBIN 14.7 13.5-17.5 g/dL HEMATOCRIT 43.7 42-54 % MCV 89.0 79-98 fL MCH 29.9 27-32 pg MCHC 33.6 32-37 g/dL RDW 12.5 11-15 % PLT COUNT 250 130-400 x10-3/uL MEAN PLATELET VOLUME 10.4 7-11 fL NRBC % AUTO 0.0 <1 % NEUT % 62.6 LYMPH % 30.3 MONO % 5.3 EOS % 1.4 BASO % 0.1 IMMATURE GRANULOCYTES % 0.3 NRBC # AUTO 0.00 <0.1 x10-3/uL ABSOLUTE NEUT 4.41 1.5-7.0 x10-3/uL LYMPH # 2.13 1-5.0 x10-3/uL MONO # 0.37 0.2-1.0 x10-3/uL EOS # 0.10 0-0.5 x10-3/uL BASO # 0.01 0-0.2 x10-3/uL IMMATURE GRANULOCYTES # 0.02 0-0.03 x10-3/uL COMPREHENSIVE METABOLIC PANE L Reviewed date:02/14/2024 11:27:08 AM Interpretation: Performing Lab: Notes/Report: Note Original Orderi ng Provider: ISIDRO RARIOLA GLUCOSE 78 70-100 mg/dL Reference range applicable to fasting specimens only BUN 13 5-25 mg/dL CREAT 1.03 0.7-1.3 mg/dL GLOMERULAR FILTRATION RATE 92 >60 This eGFR result was calculated using the CKD-EPI 2020 Creatinine Equation SODIUM 139 135-145 mEq/L POTASSIUM 4.3 3.5-5.5 mmol/L CHLORIDE 107 96-110 mmol/L CO2 25 21-32 mmol/L ANION GAP 7 3-11 CALCIUM 9.1 8.5-10.5 mg/dL TOTAL PROTEIN 7.7 6.0-8.0 G/dL ALBUMIN 4.5 3.2-5.0 G/dL BILI,TOTAL 1.0 0.0-1.4 mg/dL SGOT 12 10-42 U/L SGPT 24 10-60 U/L ALK PHOS 69 42-121 U/L Reason For Referral No Information Medications Medication SIG (Take, Route, Fr equency, Duration) Notes Start Date End Date Status Zepbound 10 MG/0.5ML Inject 10mg Subcuta neous weekly; Duration: 30 days Active Problems Problem Type SNOMED Code ICD Code Onset Dates Problem Status W/U Status Risk Notes Problem Overweight (911674167) Overweight (BMI 25.0-29.9) (E66.3) Active confirmed Problem Obstructive sleep apnea syndrome (15834944) SONIA on CPAP (G47.33) Active confirmed Problem History of obesity (597148965) History of obesity (Z86.39) Active confirmed Vital Signs Heart Rate 68 /min 11/11/2024 38 Blood pressure diastolic 80 mm Hg 11/11/2024 38 Oximetry 99 % 11/11/2024 38 Height 70 in 11/11/2024 38 Blood pressure systolic 128 mm Hg 11/11/2024 38 Weight 199.7 lbs 11/11/2024 38 BMI 28.65 kg/m2 11/11/2024 38 Encounters Encounter Location Date Provider Diagnosis [facility] [address] [address] 01/21/2024 ISIDRO ZEINAB Obesity (BMI 30-39.9 ) E66.9 ; BMI 35.0-35.9,adult Z68.35 and SONIA on CPAP G47.33 [facility] [address] [address] 02/22/2024 ISIDRO ZEINAB Obesity (BMI 30-39.9 ) E66.9 ; BMI 33.0-33.9,adult Z68.33 and SONIA on CPAP G47.33 [facility] [address] [address] 03/22/2024 ISIDRO ZEINAB Obesity (BMI 30-39.9 ) E66.9 ; BMI 32.0-32.9,adult Z68.32 and SONIA on CPAP G47.33 [facility] [address] [address] 04/18/2024 ISIDRO ZEINAB Obesity (BMI 30-39.9 ) E66.9 ; BMI 32.0-32.9,adult Z68.32 and SONIA on CPAP G47.33 [facility] [address] [address] 05/30/2024 ISIDRO ZEINAB Obesity (BMI 30-39.9 ) E66.9 ; BMI 30.0-30.9,adult Z68.30 and SONIA on CPAP G47.33 [facility] [address] [address] 07/11/2024 ISIDRO ZEINAB Overweight (BMI 25.0-29.9) E66.3 ; BMI 29.0-29.9,adult Z68.29 and SONIA on CPAP G47.33 [facility] [address] [address] 08/15/2024 [facility] Overweight (BMI 25.0-29.9) E66.3 ; BMI 28.0-28.9,adult Z68.28 ; SONIA on CPAP G47.33 and Nutritional counseling Z71.3 [facility] [address] [address] 09/30/2024 [facility] BMI 28.0-28.9,adult Z68.28 ; Overweight (BMI 25.0-29.9) E66.3 ; SONIA on CPAP G47.33 ; Nutritional counseling Z71.3 and Encounter for examination of blood pressure without abnormal findings Z01.30 [facility] [address] 11/11/2024 [facility] BMI 28.0-28.9,adult Z68.28 ; Overweight (BMI 25.0-29.9) E66.3 ; SONIA on CPAP G47.33 ; Nutritional counseling Z71.3 and Encounter for examination of blood pressure without abnormal findings Z01.30 [facility] [address] [address] 01/20/2024 [facility] [address] [address] 01/21/2024 [facility] [address] [address] 03/29/2024 [facility] Obesity (BMI 30-39.9 ) E66.9 [facility] [address] [address] 04/14/2024 [facility] [address] 10/10/2024 [facility] [address] [place] [address] 10/20/2024 ISIDRO [place] Assessments Encounter Date Diagnosis (ICD Code) Assessment Notes Treatment Notes Treatment Clinical Notes Section Notes 01/21/2024 Obesity (BMI 30-39.9) (ICD-10 - E66.9) Wilmar is a 43-year-old male with a PMH of send with CPAP that presents for weight management consult. Patient was reassured and welcomed to the practice. Discussed [facility] holistic and medical approach to weight loss with emphasis on lifestyle modification. Patient is educated that a healthy lifestyle aids in combating obesity as well as reducing the risk of developing obesity-related medical complications including but not limited to diabetes and cardiovascular disease. Detailed education provided about taking steps to initiate sustainable lifestyle changes including incorporating regular physical activity, making healthy diet choices, and prioritizing mental health. Information provided about literature including The Food Rules by Danie Omer and Eat Fat Get Lean by Dr John Kiser. Handouts including lifestyle checklist, protein content of food, low calorie snacks, and cholesterol information sheet provided. Diagnostic testing/ SECA scale offered. Discussed the importance of regular SECA scale measurements to ensure healthy weight loss. 01/21/2024: Weight: 247, BMI: 35.4. Reviewed SECA/goals for implementing sustainable lifestyle changes. Patient is encouraged to increase physical activity, goal 8-10k steps/day. Also discussed the importance of strength training with proper safety/body mechanics for maintenance of muscle mass/bone health. Patient encouraged to drink 60-80oz water/day. Reviewed nutrition, recommending food diary x 1 week to ensure adequate caloric/protein intake. Goal of 100g protein/day. Patient does endorse difficulty sleeping discussed options to aid with improved quality of sleep including melatonin v. Magnesium glycinate v. Cortisol nursing manager. Patient interested in cortisol nursing manager, purchased in office today. Reviewed risks, benefits, and side effects of weight management medications including phentermine, Topamax, Contrave, metformin, and GLP-1 agonist.Patient would like to try GLP-1 agonist Zepbound, Rx for 2.5 mg SC weekly sent to pharmacy. Proper use/administration reviewed in office. Patient denies personal/family history of M EN syndrome/medullary thyroid cancer. Reviewed expectations for PA process/insurance coverage. Patient will work on lifestyle over the next month while he waits to hear back from the insurance company. After consultation and careful review of medical history, this patient would benefit from Zepbound based off of the following criteria met: Patient is over the age of 18 with a BMI of 35. Additional comorbidities include SONIA with CPAP. Patient has trialed other methods of weight loss including improving diet and exercise without success. This medication is prescribed by or in consultation with a board-certified obesity and weight management physician (Dr. Titus Moyer or Dr. Karen Moyer). All questions answered to the patient's satisfaction. Patient demonstrates understanding of diagnosis and treatments discussed. Follow-up in 4 weeks, sooner should any questions/concerns arise. Case discussed with collaborating physician Sammi Moyer who has reviewed the assessment/plan. Chart, medications, labs, and vital signs reviewed. Dictation completed with the use of [facility] voice recognition software, prone to medical misidentifications and grammatical errors. All errors are unintentional. Although the practitioner does try to identify and correct errors, some may be present. Please do not hesitate to contact the practitioner for clarification. 01/21/2024 BMI 35.0-35.9,adul t (ICD-10 - Z68.35) Wilmar is a 43-year-old male with a PMH of send with CPAP that presents for weight management consult. Patient was reassured and welcomed to the practice. Discussed [facility] holistic and medical approach to weight loss with emphasis on lifestyle modification. Patient is educated that a healthy lifestyle aids in combating obesity as well as reducing the risk of developing obesity-related medical complications including but not limited to diabetes and cardiovascular disease. Detailed education provided about taking steps to initiate sustainable lifestyle changes including incorporating regular physical activity, making healthy diet choices, and prioritizing mental health. Information provided about literature including The Food Rules by Danie Omer and Eat Fat Get Lean by Dr John Kiser. Handouts including lifestyle checklist, protein content of food, low calorie snacks, and cholesterol information sheet provided. Diagnostic testing/ SECA scale offered. Discussed the importance of regular SECA scale measurements to ensure healthy weight loss. 01/21/2024: Weight: 247, BMI: 35.4. Reviewed SECA/goals for implementing sustainable lifestyle changes. Patient is encouraged to increase physical activity, goal 8-10k steps/day. Also discussed the importance of strength training with proper safety/body mechanics for maintenance of muscle mass/bone health. Patient encouraged to drink 60-80oz water/day. Reviewed nutrition, recommending food diary x 1 week to ensure adequate caloric/protein intake. Goal of 100g protein/day. Patient does endorse difficulty sleeping discussed options to aid with improved quality of sleep including melatonin v. Magnesium glycinate v. Cortisol nursing manager. Patient interested in cortisol nursing manager, purchased in office today. Reviewed risks, benefits, and side effects of weight management medications including phentermine, Topamax, Contrave, metformin, and GLP-1 agonist.Patient would like to try GLP-1 agonist Zepbound, Rx for 2.5 mg SC weekly sent to pharmacy. Proper use/administration reviewed in office. Patient denies personal/family history of M EN syndrome/medullary thyroid cancer. Reviewed expectations for PA process/insurance coverage. Patient will work on lifestyle over the next month while he waits to hear back from the insurance company. After consultation and careful review of medical history, this patient would benefit from Zepbound based off of the following criteria met: Patient is over the age of 17 with a BMI of 35. Additional comorbidities include SONIA with CPAP. Patient has trialed other methods of weight loss including improving diet and exercise without success. This medication is prescribed by or in consultation with a board-certified obesity and weight management physician (Dr. Titus Moyer or Dr. Karen Moyer). All questions answered to the patient's satisfaction. Patient demonstrates understanding of diagnosis and treatments discussed. Follow-up in 4 weeks, sooner should any questions/concerns arise. Case discussed with collaborating physician Sammi Moyer who has reviewed the assessment/plan. Chart, medications, labs, and vital signs reviewed. Dictation completed with the use of [facility] voice recognition software, prone to medical misidentifications and grammatical errors. All errors are unintentional. Although the practitioner does try to identify and correct errors, some may be present. Please do not hesitate to contact the practitioner for clarification. 02/22/2024 Obesity (BMI 30-39.9) (ICD-10 - E66.9) Wilmar is a 43-year-old male with a PMH of send with CPAP that presents for weight management follow-up. Reviewed [facility] holistic and medical approach to weight loss with emphasis on lifestyle modification. 02/22/2024: Weight: 235, BMI: 33.7.Patient congratulated on over 12 pound weight loss. SECA reviewed, reveals 7 pounds of fat loss with mild loss of muscle mass. The patient is encouraged to continue making health-conscious diet choices and to increase water intake, goal 60 ounces/day. The patient is encouraged to continue with adequate protein intake and to continue increasing physical activity with goal of maintenance of muscle mass. Plan to increase dose to 5 mg SC weekly. 01/21/2024: Weight: 247, BMI: 35.4. Reviewed SECA/goals for implementing sustainable lifestyle changes. Patient is encouraged to increase physical activity, goal 8-10k steps/day. Also discussed the importance of strength training with proper safety/body mechanics for maintenance of muscle mass/bone health. Patient encouraged to drink 60-80oz water/day. Reviewed nutrition, recommending food diary x 1 week to ensure adequate caloric/protein intake. Goal of 100g protein/day. Patient does endorse difficulty sleeping discussed options to aid with improved quality of sleep including melatonin v. Magnesium glycinate v. Cortisol nursing manager. Patient interested in cortisol nursing manager, purchased in office today. Reviewed risks, benefits, and side effects of weight management medications including phentermine, Topamax, Contrave, metformin, and GLP-1 agonist.Patient would like to try GLP-1 agonist Zepbound, Rx for 2.5 mg SC weekly sent to pharmacy. Proper use/administration reviewed in office. Patient denies personal/family history of M EN syndrome/medullary thyroid cancer. Reviewed expectations for PA process/insurance coverage. Patient will work on lifestyle over the next month while he waits to hear back from the insurance company. All questions answered to the patient's satisfaction. Patient demonstrates understanding of diagnosis and treatments discussed. Follow-up in 4 weeks, sooner should any questions/concerns arise. Case discussed with collaborating physician Deborah Moyer who has reviewed the assessment/plan. Chart, medications, labs, and vital signs reviewed. Dictation completed with the use of [facility] voice recognition software, prone to medical misidentifications and grammatical errors. All errors are unintentional. Although the practitioner does try to identify and correct errors, some may be present. Please do not hesitate to contact the practitioner for clarification. Total time spent was 25 minutes with >50% on coordination of care and patient education. 02/22/2024 BMI 33.0-33.9,adul t (ICD-10 - Z68.33) Wilmar is a 43-year-old male with a PMH of send with CPAP that presents for weight management follow-up. Reviewed [facility] holistic and medical approach to weight loss with emphasis on lifestyle modification. 02/22/2024: Weight: 235, BMI: 33.7.Patient congratulated on over 12 pound weight loss. SECA reviewed, reveals 7 pounds of fat loss with mild loss of muscle mass. The patient is encouraged to continue making health-conscious diet choices and to increase water intake, goal 60 ounces/day. The patient is encouraged to continue with adequate protein intake and to continue increasing physical activity with goal of maintenance of muscle mass. Plan to increase dose to 5 mg SC weekly. 01/21/2024: Weight: 247, BMI: 35.4. Reviewed SECA/goals for implementing sustainable lifestyle changes. Patient is encouraged to increase physical activity, goal 8-10k steps/day. Also discussed the importance of strength training with proper safety/body mechanics for maintenance of muscle mass/bone health. Patient encouraged to drink 60-80oz water/day. Reviewed nutrition, recommending food diary x 1 week to ensure adequate caloric/protein intake. Goal of 100g protein/day. Patient does endorse difficulty sleeping discussed options to aid with improved quality of sleep including melatonin v. Magnesium glycinate v. Cortisol nursing manager. Patient interested in cortisol nursing manager, purchased in office today. Reviewed risks, benefits, and side effects of weight management medications including phentermine, Topamax, Contrave, metformin, and GLP-1 agonist.Patient would like to try GLP-1 agonist Zepbound, Rx for 2.5 mg SC weekly sent to pharmacy. Proper use/administration reviewed in office. Patient denies personal/family history of M EN syndrome/medullary thyroid cancer. Reviewed expectations for PA process/insurance coverage. Patient will work on lifestyle over the next month while he waits to hear back from the insurance company. All questions answered to the patient's satisfaction. Patient demonstrates understanding of diagnosis and treatments discussed. Follow-up in 4 weeks, sooner should any questions/concerns arise. Case discussed with collaborating physician Deborah Moyer who has reviewed the assessment/plan. Chart, medications, labs, and vital signs reviewed. Dictation completed with the use of [facility] voice recognition software, prone to medical misidentifications and grammatical errors. All errors are unintentional. Although the practitioner does try to identify and correct errors, some may be present. Please do not hesitate to contact the practitioner for clarification. Total time spent was 25 minutes with >50% on coordination of care and patient education. 03/29/2024 Obesity (BMI 30-39.9) (ICD-10 - E66.9) 04/18/2024 Obesity (BMI 30-39.9) (ICD-10 - E66.9) Wilmar is a 43-year-old male with a PMH of send with CPAP that presents for weight management follow-up. Reviewed [facility] holistic and medical approach to weight loss with emphasis on lifestyle modification. 04/18/2024: Weight: 224, BMI: 32. SECA reviewed, reveals 8 pounds of fat loss and 2 pounds of muscle mass gain. Scale reflecting only 2 pounds of weight loss, patient likely experiencing bloat/water weight. Recommending continued prioritization of protein/veggie intake and meal prepping. Patient encouraged to continue exercising regularly, recommending tracking steps/increasing walking or aerobic exercise. Goal 10K steps/day with added strength training 2-3 times weekly. Given weight loss plateau plan to increase Zepbound to 7.5 mg SC weekly and follow-up in 1 month. 03/22/2024: Weight: 226, BMI: 32.4. Patient down 9 more pounds, congratulated on continued progress.SECA reviewed, reveals 4 pounds of fat loss and 3 pounds of muscle mass loss. The patient continues to have above average muscle mass. He is encouraged to continue active hobbies such as hiking, kayaking/rolling, and going to the gym/establishing with his personal driver as planned. He is additionally encouraged to continue making health-conscious diet choices, prioritizing protein intake, and practicing portion control. Patient down 21 pounds total, given weight loss so far, plan to continue Zepbound 5 mg SC weekly for another month. 02/22/2024: Weight: 235, BMI: 33.7.Patient congratulated on over 12 pound weight loss. SECA reviewed, reveals 7 pounds of fat loss with mild loss of muscle mass. The patient is encouraged to continue making health-conscious diet choices and to increase water intake, goal 60 ounces/day. The patient is encouraged to continue with adequate protein intake and to continue increasing physical activity with goal of maintenance of muscle mass. Plan to increase dose to 5 mg SC weekly. 01/21/2024: Weight: 247, BMI: 35.4. Reviewed SECA/goals for implementing sustainable lifestyle changes. Patient is encouraged to increase physical activity, goal 8-10k steps/day. Also discussed the importance of strength training with proper safety/body mechanics for maintenance of muscle mass/bone health. Patient encouraged to drink 60-80oz water/day. Reviewed nutrition, recommending food diary x 1 week to ensure adequate caloric/protein intake. Goal of 100g protein/day. Patient does endorse difficulty sleeping discussed options to aid with improved quality of sleep including melatonin v. Magnesium glycinate v. Cortisol nursing manager. Patient interested in cortisol nursing manager, purchased in office today. Reviewed risks, benefits, and side effects of weight management medications including phentermine, Topamax, Contrave, metformin, and GLP-1 agonist.Patient would like to try GLP-1 agonist Zepbound, Rx for 2.5 mg SC weekly sent to pharmacy. Proper use/administration reviewed in office. Patient denies personal/family history of M EN syndrome/medullary thyroid cancer. Reviewed expectations for PA process/insurance coverage. Patient will work on lifestyle over the next month while he waits to hear back from the insurance company. All questions answered to the patient's satisfaction. Patient demonstrates understanding of diagnosis and treatments discussed. Follow-up in 4 weeks, sooner should any questions/concerns arise. Case discussed with collaborating physician Sammi Moyer who has reviewed the assessment/plan. Chart, medications, labs, and vital signs reviewed. Dictation completed with the use of [facility] voice recognition software, prone to medical misidentifications and grammatical errors. All errors are unintentional. Although the practitioner does try to identify and correct errors, some may be present. Please do not hesitate to contact the practitioner for clarification. Total time spent was 30 minutes with >50% on coordination of care and patient education. 03/22/2024 Obesity (BMI 30-39.9) (ICD-10 - E66.9) Wilmar is a 43-year-old male with a PMH of send with CPAP that presents for weight management follow-up. Reviewed [facility] holistic and medical approach to weight loss with emphasis on lifestyle modification. 03/22/2024: Weight: 226, BMI: 32.4. Patient down 9 more pounds, congratulated on continued progress.SECA reviewed, reveals 4 pounds of fat loss and 3 pounds of muscle mass loss. The patient continues to have above average muscle mass. He is encouraged to continue active hobbies such as hiking, kayaking/rolling, and going to the gym/establishing with his personal driver as planned. He is additionally encouraged to continue making health-conscious diet choices, prioritizing protein intake, and practicing portion control. Patient down 21 pounds total, given weight loss so far, plan to continue Zepbound 5 mg SC weekly for another month. 02/22/2024: Weight: 235, BMI: 33.7.Patient congratulated on over 12 pound weight loss. SECA reviewed, reveals 7 pounds of fat loss with mild loss of muscle mass. The patient is encouraged to continue making health-conscious diet choices and to increase water intake, goal 60 ounces/day. The patient is encouraged to continue with adequate protein intake and to continue increasing physical activity with goal of maintenance of muscle mass. Plan to increase dose to 5 mg SC weekly. 01/21/2024: Weight: 247, BMI: 35.4. Reviewed SECA/goals for implementing sustainable lifestyle changes. Patient is encouraged to increase physical activity, goal 8-10k steps/day. Also discussed the importance of strength training with proper safety/body mechanics for maintenance of muscle mass/bone health. Patient encouraged to drink 60-80oz water/day. Reviewed nutrition, recommending food diary x 1 week to ensure adequate caloric/protein intake. Goal of 100g protein/day. Patient does endorse difficulty sleeping discussed options to aid with improved quality of sleep including melatonin v. Magnesium glycinate v. Cortisol nursing manager. Patient interested in cortisol nursing manager, purchased in office today. Reviewed risks, benefits, and side effects of weight management medications including phentermine, Topamax, Contrave, metformin, and GLP-1 agonist.Patient would like to try GLP-1 agonist Zepbound, Rx for 2.5 mg SC weekly sent to pharmacy. Proper use/administration reviewed in office. Patient denies personal/family history of M EN syndrome/medullary thyroid cancer. Reviewed expectations for PA process/insurance coverage. Patient will work on lifestyle over the next month while he waits to hear back from the insurance company. All questions answered to the patient's satisfaction. Patient demonstrates understanding of diagnosis and treatments discussed. Follow-up in 4 weeks, sooner should any questions/concerns arise. Case discussed with collaborating physician Sammi Moyer who has reviewed the assessment/plan. Chart, medications, labs, and vital signs reviewed. Dictation completed with the use of [facility] voice recognition software, prone to medical misidentifications and grammatical errors. All errors are unintentional. Although the practitioner does try to identify and correct errors, some may be present. Please do not hesitate to contact the practitioner for clarification. Total time spent was 30 minutes with >50% on coordination of care and patient education. 03/22/2024 BMI 32.0-32.9,adul t (ICD-10 - Z68.32) Wilmar is a 43-year-old male with a PMH of send with CPAP that presents for weight management follow-up. Reviewed [facility] holistic and medical approach to weight loss with emphasis on lifestyle modification. 03/22/2024: Weight: 226, BMI: 32.4. Patient down 9 more pounds, congratulated on continued progress.SECA reviewed, reveals 4 pounds of fat loss and 3 pounds of muscle mass loss. The patient continues to have above average muscle mass. He is encouraged to continue active hobbies such as hiking, kayaking/rolling, and going to the gym/establishing with his personal driver as planned. He is additionally encouraged to continue making health-conscious diet choices, prioritizing protein intake, and practicing portion control. Patient down 21 pounds total, given weight loss so far, plan to continue Zepbound 5 mg SC weekly for another month. 02/22/2024: Weight: 235, BMI: 33.7.Patient congratulated on over 12 pound weight loss. SECA reviewed, reveals 7 pounds of fat loss with mild loss of muscle mass. The patient is encouraged to continue making health-conscious diet choices and to increase water intake, goal 60 ounces/day. The patient is encouraged to continue with adequate protein intake and to continue increasing physical activity with goal of maintenance of muscle mass. Plan to increase dose to 5 mg SC weekly. 01/21/2024: Weight: 247, BMI: 35.4. Reviewed SECA/goals for implementing sustainable lifestyle changes. Patient is encouraged to increase physical activity, goal 8-10k steps/day. Also discussed the importance of strength training with proper safety/body mechanics for maintenance of muscle mass/bone health. Patient encouraged to drink 60-80oz water/day. Reviewed nutrition, recommending food diary x 1 week to ensure adequate caloric/protein intake. Goal of 100g protein/day. Patient does endorse difficulty sleeping discussed options to aid with improved quality of sleep including melatonin v. Magnesium glycinate v. Cortisol nursing manager. Patient interested in cortisol nursing manager, purchased in office today. Reviewed risks, benefits, and side effects of weight management medications including phentermine, Topamax, Contrave, metformin, and GLP-1 agonist.Patient would like to try GLP-1 agonist Zepbound, Rx for 2.5 mg SC weekly sent to pharmacy. Proper use/administration reviewed in office. Patient denies personal/family history of M EN syndrome/medullary thyroid cancer. Reviewed expectations for PA process/insurance coverage. Patient will work on lifestyle over the next month while he waits to hear back from the insurance company. All questions answered to the patient's satisfaction. Patient demonstrates understanding of diagnosis and treatments discussed. Follow-up in 4 weeks, sooner should any questions/concerns arise. Case discussed with collaborating physician Sammi Moyer who has reviewed the assessment/plan. Chart, medications, labs, and vital signs reviewed. Dictation completed with the use of [facility] voice recognition software, prone to medical misidentifications and grammatical errors. All errors are unintentional. Although the practitioner does try to identify and correct errors, some may be present. Please do not hesitate to contact the practitioner for clarification. Total time spent was 30 minutes with >50% on coordination of care and patient education. 05/30/2024 Obesity (BMI 30-39.9) (ICD-10 - E66.9) Wilmar is a 44-year-old male with a PMH of send with CPAP that presents for weight management follow-up. Reviewed [facility] holistic and medical approach to weight loss with emphasis on lifestyle modification. 05/30/2024: Weight: 212, BMI: 30.4. Patient down 12 pounds, congratulated on progress.SECA reviewed, reveals 7 pounds of fat loss and 4 pounds of muscle mass loss. The patient continues to have high muscle mass. He is encouraged to continue with his current level of physical activity/active hobbies. Discussed the importance of continued prioritization of protein intake. Plan to continue Zepbound 7.5 mg SC weekly and follow-up in 1 month. 04/18/2024: Weight: 224, BMI: 32. SECA reviewed, reveals 8 pounds of fat loss and 2 pounds of muscle mass gain. Scale reflecting only 2 pounds of weight loss, patient likely experiencing bloat/water weight. Recommending continued prioritization of protein/veggie intake and meal prepping. Patient encouraged to continue exercising regularly, recommending tracking steps/increasing walking or aerobic exercise. Goal 10K steps/day with added strength training 2-3 times weekly. Given weight loss plateau plan to increase Zepbound to 7.5 mg SC weekly and follow-up in 1 month. 03/22/2024: Weight: 226, BMI: 32.4. Patient down 9 more pounds, congratulated on continued progress.SECA reviewed, reveals 4 pounds of fat loss and 3 pounds of muscle mass loss. The patient continues to have above average muscle mass. He is encouraged to continue active hobbies such as hiking, kayaking/rolling, and going to the gym/establishing with his personal driver as planned. He is additionally encouraged to continue making health-conscious diet choices, prioritizing protein intake, and practicing portion control. Patient down 21 pounds total, given weight loss so far, plan to continue Zepbound 5 mg SC weekly for another month. 02/22/2024: Weight: 235, BMI: 33.7.Patient congratulated on over 12 pound weight loss. SECA reviewed, reveals 7 pounds of fat loss with mild loss of muscle mass. The patient is encouraged to continue making health-conscious diet choices and to increase water intake, goal 60 ounces/day. The patient is encouraged to continue with adequate protein intake and to continue increasing physical activity with goal of maintenance of muscle mass. Plan to increase dose to 5 mg SC weekly. 01/21/2024: Weight: 247, BMI: 35.4. Reviewed SECA/goals for implementing sustainable lifestyle changes. Patient is encouraged to increase physical activity, goal 8-10k steps/day. Also discussed the importance of strength training with proper safety/body mechanics for maintenance of muscle mass/bone health. Patient encouraged to drink 60-80oz water/day. Reviewed nutrition, recommending food diary x 1 week to ensure adequate caloric/protein intake. Goal of 100g protein/day. Patient does endorse difficulty sleeping discussed options to aid with improved quality of sleep including melatonin v. Magnesium glycinate v. Cortisol nursing manager. Patient interested in cortisol nursing manager, purchased in office today. Reviewed risks, benefits, and side effects of weight management medications including phentermine, Topamax, Contrave, metformin, and GLP-1 agonist.Patient would like to try GLP-1 agonist Zepbound, Rx for 2.5 mg SC weekly sent to pharmacy. Proper use/administration reviewed in office. Patient denies personal/family history of M EN syndrome/medullary thyroid cancer. Reviewed expectations for PA process/insurance coverage. Patient will work on lifestyle over the next month while he waits to hear back from the insurance company. All questions answered to the patient's satisfaction. Patient demonstrates understanding of diagnosis and treatments discussed. Follow-up in 4 weeks, sooner should any questions/concerns arise. Case discussed with collaborating physician Sammi Moyer who has reviewed the assessment/plan. Chart, medications, labs, and vital signs reviewed. Dictation completed with the use of [facility] voice recognition software, prone to medical misidentifications and grammatical errors. All errors are unintentional. Although the practitioner does try to identify and correct errors, some may be present. Please do not hesitate to contact the practitioner for clarification. Total time spent was 30 minutes with >50% on coordination of care and patient education. 05/30/2024 BMI 30.0-30.9,adul t (ICD-10 - Z68.30) Wilmar is a 44-year-old male with a PMH of send with CPAP that presents for weight management follow-up. Reviewed [facility] holistic and medical approach to weight loss with emphasis on lifestyle modification. 05/30/2024: Weight: 212, BMI: 30.4. Patient down 12 pounds, congratulated on progress.SECA reviewed, reveals 7 pounds of fat loss and 4 pounds of muscle mass loss. The patient continues to have high muscle mass. He is encouraged to continue with his current level of physical activity/active hobbies. Discussed the importance of continued prioritization of protein intake. Plan to continue Zepbound 7.5 mg SC weekly and follow-up in 1 month. 04/18/2024: Weight: 224, BMI: 32. SECA reviewed, reveals 8 pounds of fat loss and 2 pounds of muscle mass gain. Scale reflecting only 2 pounds of weight loss, patient likely experiencing bloat/water weight. Recommending continued prioritization of protein/veggie intake and meal prepping. Patient encouraged to continue exercising regularly, recommending tracking steps/increasing walking or aerobic exercise. Goal 10K steps/day with added strength training 2-3 times weekly. Given weight loss plateau plan to increase Zepbound to 7.5 mg SC weekly and follow-up in 1 month. 03/22/2024: Weight: 226, BMI: 32.4. Patient down 9 more pounds, congratulated on continued progress.SECA reviewed, reveals 4 pounds of fat loss and 3 pounds of muscle mass loss. The patient continues to have above average muscle mass. He is encouraged to continue active hobbies such as hiking, kayaking/rolling, and going to the gym/establishing with his personal driver as planned. He is additionally encouraged to continue making health-conscious diet choices, prioritizing protein intake, and practicing portion control. Patient down 21 pounds total, given weight loss so far, plan to continue Zepbound 5 mg SC weekly for another month. 02/22/2024: Weight: 235, BMI: 33.7.Patient congratulated on over 12 pound weight loss. SECA reviewed, reveals 7 pounds of fat loss with mild loss of muscle mass. The patient is encouraged to continue making health-conscious diet choices and to increase water intake, goal 60 ounces/day. The patient is encouraged to continue with adequate protein intake and to continue increasing physical activity with goal of maintenance of muscle mass. Plan to increase dose to 5 mg SC weekly. 01/21/2024: Weight: 247, BMI: 35.4. Reviewed SECA/goals for implementing sustainable lifestyle changes. Patient is encouraged to increase physical activity, goal 8-10k steps/day. Also discussed the importance of strength training with proper safety/body mechanics for maintenance of muscle mass/bone health. Patient encouraged to drink 60-80oz water/day. Reviewed nutrition, recommending food diary x 1 week to ensure adequate caloric/protein intake. Goal of 100g protein/day. Patient does endorse difficulty sleeping discussed options to aid with improved quality of sleep including melatonin v. Magnesium glycinate v. Cortisol nursing manager. Patient interested in cortisol nursing manager, purchased in office today. Reviewed risks, benefits, and side effects of weight management medications including phentermine, Topamax, Contrave, metformin, and GLP-1 agonist.Patient would like to try GLP-1 agonist Zepbound, Rx for 2.5 mg SC weekly sent to pharmacy. Proper use/administration reviewed in office. Patient denies personal/family history of M EN syndrome/medullary thyroid cancer. Reviewed expectations for PA process/insurance coverage. Patient will work on lifestyle over the next month while he waits to hear back from the insurance company. All questions answered to the patient's satisfaction. Patient demonstrates understanding of diagnosis and treatments discussed. Follow-up in 4 weeks, sooner should any questions/concerns arise. Case discussed with collaborating physician Sammi Moyer who has reviewed the assessment/plan. Chart, medications, labs, and vital signs reviewed. Dictation completed with the use of [facility] voice recognition software, prone to medical misidentifications and grammatical errors. All errors are unintentional. Although the practitioner does try to identify and correct errors, some may be present. Please do not hesitate to contact the practitioner for clarification. Total time spent was 30 minutes with >50% on coordination of care and patient education. 08/15/2024 BMI 28.0-28.9,adul t (ICD-10 - Z68.28) Wilmar is a 44-year-old male with a PMH of send with CPAP that presents for weight management follow-up. Reviewed [facility] holistic and medical approach to weight loss with emphasis on lifestyle modification. 08/15/2024: Weight: 198, BMI: 28.4. Patient down 7 pounds.SECA reviewed, reveals 4 pounds of fat loss and 2 pounds of muscle mass loss. Patient is successfully lost 49 pounds since establishing care with us. Discussed goals of improving overall body composition with continued weight loss as fat mass is nearing what is considered normal. He is encouraged to continue maintaining healthy lifestyle and making health-conscious diet choices. Plan to continue Zepbound 10 mg SC weekly and follow-up in 1 month. 07/11/2024: Weight: 205, BMI: 29.4. Patient down 7lbs in a little over 1 month. SECA reviewed, reveals 7lbs of fat loss and maintenance of muscle mass. Patient encouraged to continue active hobbies. Discussed the importance of continued adequate protein intake. Patient's weight loss goal is about 195. Given maintenance of weight over the last month, plan to increase Zepbound to 10 mg SC weekly and follow-up in 1 month. 05/30/2024: Weight: 212, BMI: 30.4. Patient down 12 pounds, congratulated on progress.SECA reviewed, reveals 7 pounds of fat loss and 4 pounds of muscle mass loss. The patient continues to have high muscle mass. He is encouraged to continue with his current level of physical activity/active hobbies. Discussed the importance of continued prioritization of protein intake. Plan to continue Zepbound 7.5 mg SC weekly and follow-up in 1 month. 04/18/2024: Weight: 224, BMI: 32. SECA reviewed, reveals 8 pounds of fat loss and 2 pounds of muscle mass gain. Scale reflecting only 2 pounds of weight loss, patient likely experiencing bloat/water weight. Recommending continued prioritization of protein/veggie intake and meal prepping. Patient encouraged to continue exercising regularly, recommending tracking steps/increasing walking or aerobic exercise. Goal 10K steps/day with added strength training 2-3 times weekly. Given weight loss plateau plan to increase Zepbound to 7.5 mg SC weekly and follow-up in 1 month. 03/22/2024: Weight: 226, BMI: 32.4. Patient down 9 more pounds, congratulated on continued progress.SECA reviewed, reveals 4 pounds of fat loss and 3 pounds of muscle mass loss. The patient continues to have above average muscle mass. He is encouraged to continue active hobbies such as hiking, kayaking/rolling, and going to the gym/establishing with his personal driver as planned. He is additionally encouraged to continue making health-conscious diet choices, prioritizing protein intake, and practicing portion control. Patient down 21 pounds total, given weight loss so far, plan to continue Zepbound 5 mg SC weekly for another month. 02/22/2024: Weight: 235, BMI: 33.7.Patient congratulated on over 12 pound weight loss. SECA reviewed, reveals 7 pounds of fat loss with mild loss of muscle mass. The patient is encouraged to continue making health-conscious diet choices and to increase water intake, goal 60 ounces/day. The patient is encouraged to continue with adequate protein intake and to continue increasing physical activity with goal of maintenance of muscle mass. Plan to increase dose to 5 mg SC weekly. 01/21/2024: Weight: 247, BMI: 35.4. Reviewed SECA/goals for implementing sustainable lifestyle changes. Patient is encouraged to increase physical activity, goal 8-10k steps/day. Also discussed the importance of strength training with proper safety/body mechanics for maintenance of muscle mass/bone health. Patient encouraged to drink 60-80oz water/day. Reviewed nutrition, recommending food diary x 1 week to ensure adequate caloric/protein intake. Goal of 100g protein/day. Patient does endorse difficulty sleeping discussed options to aid with improved quality of sleep including melatonin v. Magnesium glycinate v. Cortisol nursing manager. Patient interested in cortisol nursing manager, purchased in office today. Reviewed risks, benefits, and side effects of weight management medications including phentermine, Topamax, Contrave, metformin, and GLP-1 agonist.Patient would like to try GLP-1 agonist Zepbound, Rx for 2.5 mg SC weekly sent to pharmacy. Proper use/administration reviewed in office. Patient denies personal/family history of M EN syndrome/medullary thyroid cancer. Reviewed expectations for PA process/insurance coverage. Patient will work on lifestyle over the next month while he waits to hear back from the insurance company. All questions answered to the patient's satisfaction. Patient demonstrates understanding of diagnosis and treatments discussed. Follow-up in 4 weeks, sooner should any questions/concerns arise. Case discussed with collaborating physician Sammi Moyer who has reviewed the assessment/plan. Chart, medications, labs, and vital signs reviewed. Dictation completed with the use of [facility] voice recognition software, prone to medical misidentifications and grammatical errors. All errors are unintentional. Although the practitioner does try to identify and correct errors, some may be present. Please do not hesitate to contact the practitioner for clarification. Total time spent was 30 minutes with >50% on coordination of care and patient education. 08/15/2024 Overweight (BMI 25.0-29.9) (ICD-10 - E66.3) Wilmar is a 44-year-old male with a PMH of send with CPAP that presents for weight management follow-up. Reviewed [facility] holistic and medical approach to weight loss with emphasis on lifestyle modification. 08/15/2024: Weight: 198, BMI: 28.4. Patient down 7 pounds.SECA reviewed, reveals 4 pounds of fat loss and 2 pounds of muscle mass loss. Patient is successfully lost 49 pounds since establishing care with us. Discussed goals of improving overall body composition with continued weight loss as fat mass is nearing what is considered normal. He is encouraged to continue maintaining healthy lifestyle and making health-conscious diet choices. Plan to continue Zepbound 10 mg SC weekly and follow-up in 1 month. 07/11/2024: Weight: 205, BMI: 29.4. Patient down 7lbs in a little over 1 month. SECA reviewed, reveals 7lbs of fat loss and maintenance of muscle mass. Patient encouraged to continue active hobbies. Discussed the importance of continued adequate protein intake. Patient's weight loss goal is about 195. Given maintenance of weight over the last month, plan to increase Zepbound to 10 mg SC weekly and follow-up in 1 month. 05/30/2024: Weight: 212, BMI: 30.4. Patient down 12 pounds, congratulated on progress.SECA reviewed, reveals 7 pounds of fat loss and 4 pounds of muscle mass loss. The patient continues to have high muscle mass. He is encouraged to continue with his current level of physical activity/active hobbies. Discussed the importance of continued prioritization of protein intake. Plan to continue Zepbound 7.5 mg SC weekly and follow-up in 1 month. 04/18/2024: Weight: 224, BMI: 32. SECA reviewed, reveals 8 pounds of fat loss and 2 pounds of muscle mass gain. Scale reflecting only 2 pounds of weight loss, patient likely experiencing bloat/water weight. Recommending continued prioritization of protein/veggie intake and meal prepping. Patient encouraged to continue exercising regularly, recommending tracking steps/increasing walking or aerobic exercise. Goal 10K steps/day with added strength training 2-3 times weekly. Given weight loss plateau plan to increase Zepbound to 7.5 mg SC weekly and follow-up in 1 month. 03/22/2024: Weight: 226, BMI: 32.4. Patient down 9 more pounds, congratulated on continued progress.SECA reviewed, reveals 4 pounds of fat loss and 3 pounds of muscle mass loss. The patient continues to have above average muscle mass. He is encouraged to continue active hobbies such as hiking, kayaking/rolling, and going to the gym/establishing with his personal driver as planned. He is additionally encouraged to continue making health-conscious diet choices, prioritizing protein intake, and practicing portion control. Patient down 21 pounds total, given weight loss so far, plan to continue Zepbound 5 mg SC weekly for another month. 02/22/2024: Weight: 235, BMI: 33.7.Patient congratulated on over 12 pound weight loss. SECA reviewed, reveals 7 pounds of fat loss with mild loss of muscle mass. The patient is encouraged to continue making health-conscious diet choices and to increase water intake, goal 60 ounces/day. The patient is encouraged to continue with adequate protein intake and to continue increasing physical activity with goal of maintenance of muscle mass. Plan to increase dose to 5 mg SC weekly. 01/21/2024: Weight: 247, BMI: 35.4. Reviewed SECA/goals for implementing sustainable lifestyle changes. Patient is encouraged to increase physical activity, goal 8-10k steps/day. Also discussed the importance of strength training with proper safety/body mechanics for maintenance of muscle mass/bone health. Patient encouraged to drink 60-80oz water/day. Reviewed nutrition, recommending food diary x 1 week to ensure adequate caloric/protein intake. Goal of 100g protein/day. Patient does endorse difficulty sleeping discussed options to aid with improved quality of sleep including melatonin v. Magnesium glycinate v. Cortisol nursing manager. Patient interested in cortisol nursing manager, purchased in office today. Reviewed risks, benefits, and side effects of weight management medications including phentermine, Topamax, Contrave, metformin, and GLP-1 agonist.Patient would like to try GLP-1 agonist Zepbound, Rx for 2.5 mg SC weekly sent to pharmacy. Proper use/administration reviewed in office. Patient denies personal/family history of M EN syndrome/medullary thyroid cancer. Reviewed expectations for PA process/insurance coverage. Patient will work on lifestyle over the next month while he waits to hear back from the insurance company. All questions answered to the patient's satisfaction. Patient demonstrates understanding of diagnosis and treatments discussed. Follow-up in 4 weeks, sooner should any questions/concerns arise. Case discussed with collaborating physician Sammi Moyer who has reviewed the assessment/plan. Chart, medications, labs, and vital signs reviewed. Dictation completed with the use of [facility] voice recognition software, prone to medical misidentifications and grammatical errors. All errors are unintentional. Although the practitioner does try to identify and correct errors, some may be present. Please do not hesitate to contact the practitioner for clarification. Total time spent was 30 minutes with >50% on coordination of care and patient education. 09/30/2024 BMI 28.0-28.9,adul t (ICD-10 - Z68.28) Wilmar is a 44-year-old male with a PMH of send with CPAP that presents for weight management follow-up. Reviewed [facility] holistic and medical approach to weight loss with emphasis on lifestyle modification. 09/30/24: Weight: 194lbs, BMI: 27.5. (-4lbs). SECA reviewed, reveals 9lbs of fat loss and 3lbs of muscle mass gain. Body composition ideal. Patient encouraged to continue making healthy diet choices and prioritizing protein intake. Discussed importance of maintaining active lifestyle. Will continue Zepbound 10 mg SC weekly x 4 weeks with goal of reaching 190 pounds. Will discuss beginning of maintenance dosing at time of follow-up. 08/15/2024: Weight: 198, BMI: 28.4. (-7lbs) 07/11/2024: Weight: 205, BMI: 29.4. (-7lbs) 05/30/2024: Weight: 212, BMI: 30.4. (-12lbs) 04/18/2024: Weight: 224, BMI: 32. (-2lbs) 03/22/2024: Weight: 226, BMI: 32.4. (-2lbs) 02/22/2024: Weight: 235, BMI: 33.7. (-12lbs) 01/21/2024: Weight: 247, BMI: 35.4. All questions answered to the patient's satisfaction. Patient demonstrates understanding of diagnosis and treatments discussed. Follow-up in 4 weeks, sooner should any questions/concerns arise. Case discussed with collaborating physician Sammi Moyer who has reviewed the assessment/plan. Chart, medications, labs, and vital signs reviewed. Dictation completed with the use of [facility] voice recognition software, prone to medical misidentifications and grammatical errors. All errors are unintentional. Although the practitioner does try to identify and correct errors, some may be present. Please do not hesitate to contact the practitioner for clarification. Total time spent was 30 minutes with >50% on coordination of care and patient education. 11/11/2024 BMI 28.0-28.9,adul t (ICD-10 - Z68.28) Wilmar is a 44-year-old male with a PMH of send with CPAP that presents for weight management follow-up. Reviewed [facility] holistic and medical approach to weight loss with emphasis on lifestyle modification. 11/11/2024: Weight: 199.7, BMI: 28.6. (+5lbs) SECA reviewed, reveals a little over 1 pound of fat gain and 2 pounds of muscle mass gain. Patient encouraged to continue making health-conscious diet choices, exercising regularly, and hydrating adequately. Plan to reinitiate treatment with Zepbound 10 mg SC weekly, discussed option for coupon stating called via Zepbound website. Also discussed possibility of discontinued coverage. If Zepbound is no longer covered, consider switching to alternative medication Wegovy. 09/30/24: Weight: 194lbs, BMI: 27.5. (-4lbs) 08/15/2024: Weight: 198, BMI: 28.4. (-7lbs) 07/11/2024: Weight: 205, BMI: 29.4. (-7lbs) 05/30/2024: Weight: 212, BMI: 30.4. (-12lbs) 04/18/2024: Weight: 224, BMI: 32. (-2lbs) 03/22/2024: Weight: 226, BMI: 32.4. (-2lbs) 02/22/2024: Weight: 235, BMI: 33.7. (-12lbs) 01/21/2024: Weight: 247, BMI: 35.4. All questions answered to the patient's satisfaction. Patient demonstrates understanding of diagnosis and treatments discussed. Follow-up in 4 weeks, sooner should any questions/concerns arise. Case discussed with collaborating physician Sammi Moyer who has reviewed the assessment/plan. Chart, medications, labs, and vital signs reviewed. Dictation completed with the use of [facility] voice recognition software, prone to medical misidentifications and grammatical errors. All errors are unintentional. Although the practitioner does try to identify and correct errors, some may be present. Please do not hesitate to contact the practitioner for clarification. Total time spent was 30 minutes with >50% on coordination of care and patient education. 07/11/2024 BMI 29.0-29.9,adul t (ICD-10 - Z68.29) Wilmar is a 44-year-old male with a PMH of send with CPAP that presents for weight management follow-up. Reviewed [facility] holistic and medical approach to weight loss with emphasis on lifestyle modification. 07/11/2024: Weight: 205, BMI: 29.4. Patient down 7lbs in a little over 1 month. SECA reviewed, reveals 7lbs of fat loss and maintenance of muscle mass. Patient encouraged to continue active hobbies. Discussed the importance of continued adequate protein intake. Patient's weight loss goal is about 195. Given maintenance of weight over the last month, plan to increase Zepbound to 10 mg SC weekly and follow-up in 1 month. 05/30/2024: Weight: 212, BMI: 30.4. Patient down 12 pounds, congratulated on progress.SECA reviewed, reveals 7 pounds of fat loss and 4 pounds of muscle mass loss. The patient continues to have high muscle mass. He is encouraged to continue with his current level of physical activity/active hobbies. Discussed the importance of continued prioritization of protein intake. Plan to continue Zepbound 7.5 mg SC weekly and follow-up in 1 month. 04/18/2024: Weight: 224, BMI: 32. SECA reviewed, reveals 8 pounds of fat loss and 2 pounds of muscle mass gain. Scale reflecting only 2 pounds of weight loss, patient likely experiencing bloat/water weight. Recommending continued prioritization of protein/veggie intake and meal prepping. Patient encouraged to continue exercising regularly, recommending tracking steps/increasing walking or aerobic exercise. Goal 10K steps/day with added strength training 2-3 times weekly. Given weight loss plateau plan to increase Zepbound to 7.5 mg SC weekly and follow-up in 1 month. 03/22/2024: Weight: 226, BMI: 32.4. Patient down 9 more pounds, congratulated on continued progress.SECA reviewed, reveals 4 pounds of fat loss and 3 pounds of muscle mass loss. The patient continues to have above average muscle mass. He is encouraged to continue active hobbies such as hiking, kayaking/rolling, and going to the gym/establishing with his personal driver as planned. He is additionally encouraged to continue making health-conscious diet choices, prioritizing protein intake, and practicing portion control. Patient down 21 pounds total, given weight loss so far, plan to continue Zepbound 5 mg SC weekly for another month. 02/22/2024: Weight: 235, BMI: 33.7.Patient congratulated on over 12 pound weight loss. SECA reviewed, reveals 7 pounds of fat loss with mild loss of muscle mass. The patient is encouraged to continue making health-conscious diet choices and to increase water intake, goal 60 ounces/day. The patient is encouraged to continue with adequate protein intake and to continue increasing physical activity with goal of maintenance of muscle mass. Plan to increase dose to 5 mg SC weekly. 01/21/2024: Weight: 247, BMI: 35.4. Reviewed SECA/goals for implementing sustainable lifestyle changes. Patient is encouraged to increase physical activity, goal 8-10k steps/day. Also discussed the importance of strength training with proper safety/body mechanics for maintenance of muscle mass/bone health. Patient encouraged to drink 60-80oz water/day. Reviewed nutrition, recommending food diary x 1 week to ensure adequate caloric/protein intake. Goal of 100g protein/day. Patient does endorse difficulty sleeping discussed options to aid with improved quality of sleep including melatonin v. Magnesium glycinate v. Cortisol nursing manager. Patient interested in cortisol nursing manager, purchased in office today. Reviewed risks, benefits, and side effects of weight management medications including phentermine, Topamax, Contrave, metformin, and GLP-1 agonist.Patient would like to try GLP-1 agonist Zepbound, Rx for 2.5 mg SC weekly sent to pharmacy. Proper use/administration reviewed in office. Patient denies personal/family history of M EN syndrome/medullary thyroid cancer. Reviewed expectations for PA process/insurance coverage. Patient will work on lifestyle over the next month while he waits to hear back from the insurance company. All questions answered to the patient's satisfaction. Patient demonstrates understanding of diagnosis and treatments discussed. Follow-up in 4 weeks, sooner should any questions/concerns arise. Case discussed with collaborating physician Sammi Moyer who has reviewed the assessment/plan. Chart, medications, labs, and vital signs reviewed. Dictation completed with the use of [facility] voice recognition software, prone to medical misidentifications and grammatical errors. All errors are unintentional. Although the practitioner does try to identify and correct errors, some may be present. Please do not hesitate to contact the practitioner for clarification. Total time spent was 30 minutes with >50% on coordination of care and patient education. 07/11/2024 Overweight (BMI 25.0-29.9) (ICD-10 - E66.3) Wilmar is a 44-year-old male with a PMH of send with CPAP that presents for weight management follow-up. Reviewed [facility] holistic and medical approach to weight loss with emphasis on lifestyle modification. 07/11/2024: Weight: 205, BMI: 29.4. Patient down 7lbs in a little over 1 month. SECA reviewed, reveals 7lbs of fat loss and maintenance of muscle mass. Patient encouraged to continue active hobbies. Discussed the importance of continued adequate protein intake. Patient's weight loss goal is about 195. Given maintenance of weight over the last month, plan to increase Zepbound to 10 mg SC weekly and follow-up in 1 month. 05/30/2024: Weight: 212, BMI: 30.4. Patient down 12 pounds, congratulated on progress.SECA reviewed, reveals 7 pounds of fat loss and 4 pounds of muscle mass loss. The patient continues to have high muscle mass. He is encouraged to continue with his current level of physical activity/active hobbies. Discussed the importance of continued prioritization of protein intake. Plan to continue Zepbound 7.5 mg SC weekly and follow-up in 1 month. 04/18/2024: Weight: 224, BMI: 32. SECA reviewed, reveals 8 pounds of fat loss and 2 pounds of muscle mass gain. Scale reflecting only 2 pounds of weight loss, patient likely experiencing bloat/water weight. Recommending continued prioritization of protein/veggie intake and meal prepping. Patient encouraged to continue exercising regularly, recommending tracking steps/increasing walking or aerobic exercise. Goal 10K steps/day with added strength training 2-3 times weekly. Given weight loss plateau plan to increase Zepbound to 7.5 mg SC weekly and follow-up in 1 month. 03/22/2024: Weight: 226, BMI: 32.4. Patient down 9 more pounds, congratulated on continued progress.SECA reviewed, reveals 4 pounds of fat loss and 3 pounds of muscle mass loss. The patient continues to have above average muscle mass. He is encouraged to continue active hobbies such as hiking, kayaking/rolling, and going to the gym/establishing with his personal driver as planned. He is additionally encouraged to continue making health-conscious diet choices, prioritizing protein intake, and practicing portion control. Patient down 21 pounds total, given weight loss so far, plan to continue Zepbound 5 mg SC weekly for another month. 02/22/2024: Weight: 235, BMI: 33.7.Patient congratulated on over 12 pound weight loss. SECA reviewed, reveals 7 pounds of fat loss with mild loss of muscle mass. The patient is encouraged to continue making health-conscious diet choices and to increase water intake, goal 60 ounces/day. The patient is encouraged to continue with adequate protein intake and to continue increasing physical activity with goal of maintenance of muscle mass. Plan to increase dose to 5 mg SC weekly. 01/21/2024: Weight: 247, BMI: 35.4. Reviewed SECA/goals for implementing sustainable lifestyle changes. Patient is encouraged to increase physical activity, goal 8-10k steps/day. Also discussed the importance of strength training with proper safety/body mechanics for maintenance of muscle mass/bone health. Patient encouraged to drink 60-80oz water/day. Reviewed nutrition, recommending food diary x 1 week to ensure adequate caloric/protein intake. Goal of 100g protein/day. Patient does endorse difficulty sleeping discussed options to aid with improved quality of sleep including melatonin v. Magnesium glycinate v. Cortisol nursing manager. Patient interested in cortisol nursing manager, purchased in office today. Reviewed risks, benefits, and side effects of weight management medications including phentermine, Topamax, Contrave, metformin, and GLP-1 agonist.Patient would like to try GLP-1 agonist Zepbound, Rx for 2.5 mg SC weekly sent to pharmacy. Proper use/administration reviewed in office. Patient denies personal/family history of M EN syndrome/medullary thyroid cancer. Reviewed expectations for PA process/insurance coverage. Patient will work on lifestyle over the next month while he waits to hear back from the insurance company. All questions answered to the patient's satisfaction. Patient demonstrates understanding of diagnosis and treatments discussed. Follow-up in 4 weeks, sooner should any questions/concerns arise. Case discussed with collaborating physician Sammi Moyer who has reviewed the assessment/plan. Chart, medications, labs, and vital signs reviewed. Dictation completed with the use of [facility] voice recognition software, prone to medical misidentifications and grammatical errors. All errors are unintentional. Although the practitioner does try to identify and correct errors, some may be present. Please do not hesitate to contact the practitioner for clarification. Total time spent was 30 minutes with >50% on coordination of care and patient education. 07/11/2024 SONIA on CPAP (ICD-10 - G47.33) Wilmar is a 44-year-old male with a PMH of send with CPAP that presents for weight management follow-up. Reviewed [facility] holistic and medical approach to weight loss with emphasis on lifestyle modification. 07/11/2024: Weight: 205, BMI: 29.4. Patient down 7lbs in a little over 1 month. SECA reviewed, reveals 7lbs of fat loss and maintenance of muscle mass. Patient encouraged to continue active hobbies. Discussed the importance of continued adequate protein intake. Patient's weight loss goal is about 195. Given maintenance of weight over the last month, plan to increase Zepbound to 10 mg SC weekly and follow-up in 1 month. 05/30/2024: Weight: 212, BMI: 30.4. Patient down 12 pounds, congratulated on progress.SECA reviewed, reveals 7 pounds of fat loss and 4 pounds of muscle mass loss. The patient continues to have high muscle mass. He is encouraged to continue with his current level of physical activity/active hobbies. Discussed the importance of continued prioritization of protein intake. Plan to continue Zepbound 7.5 mg SC weekly and follow-up in 1 month. 04/18/2024: Weight: 224, BMI: 32. SECA reviewed, reveals 8 pounds of fat loss and 2 pounds of muscle mass gain. Scale reflecting only 2 pounds of weight loss, patient likely experiencing bloat/water weight. Recommending continued prioritization of protein/veggie intake and meal prepping. Patient encouraged to continue exercising regularly, recommending tracking steps/increasing walking or aerobic exercise. Goal 10K steps/day with added strength training 2-3 times weekly. Given weight loss plateau plan to increase Zepbound to 7.5 mg SC weekly and follow-up in 1 month. 03/22/2024: Weight: 226, BMI: 32.4. Patient down 9 more pounds, congratulated on continued progress.SECA reviewed, reveals 4 pounds of fat loss and 3 pounds of muscle mass loss. The patient continues to have above average muscle mass. He is encouraged to continue active hobbies such as hiking, kayaking/rolling, and going to the gym/establishing with his personal driver as planned. He is additionally encouraged to continue making health-conscious diet choices, prioritizing protein intake, and practicing portion control. Patient down 21 pounds total, given weight loss so far, plan to continue Zepbound 5 mg SC weekly for another month. 02/22/2024: Weight: 235, BMI: 33.7.Patient congratulated on over 12 pound weight loss. SECA reviewed, reveals 7 pounds of fat loss with mild loss of muscle mass. The patient is encouraged to continue making health-conscious diet choices and to increase water intake, goal 60 ounces/day. The patient is encouraged to continue with adequate protein intake and to continue increasing physical activity with goal of maintenance of muscle mass. Plan to increase dose to 5 mg SC weekly. 01/21/2024: Weight: 247, BMI: 35.4. Reviewed SECA/goals for implementing sustainable lifestyle changes. Patient is encouraged to increase physical activity, goal 8-10k steps/day. Also discussed the importance of strength training with proper safety/body mechanics for maintenance of muscle mass/bone health. Patient encouraged to drink 60-80oz water/day. Reviewed nutrition, recommending food diary x 1 week to ensure adequate caloric/protein intake. Goal of 100g protein/day. Patient does endorse difficulty sleeping discussed options to aid with improved quality of sleep including melatonin v. Magnesium glycinate v. Cortisol nursing manager. Patient interested in cortisol nursing manager, purchased in office today. Reviewed risks, benefits, and side effects of weight management medications including phentermine, Topamax, Contrave, metformin, and GLP-1 agonist.Patient would like to try GLP-1 agonist Zepbound, Rx for 2.5 mg SC weekly sent to pharmacy. Proper use/administration reviewed in office. Patient denies personal/family history of M EN syndrome/medullary thyroid cancer. Reviewed expectations for PA process/insurance coverage. Patient will work on lifestyle over the next month while he waits to hear back from the insurance company. All questions answered to the patient's satisfaction. Patient demonstrates understanding of diagnosis and treatments discussed. Follow-up in 4 weeks, sooner should any questions/concerns arise. Case discussed with collaborating physician Sammi Moyer who has reviewed the assessment/plan. Chart, medications, labs, and vital signs reviewed. Dictation completed with the use of [facility] voice recognition software, prone to medical misidentifications and grammatical errors. All errors are unintentional. Although the practitioner does try to identify and correct errors, some may be present. Please do not hesitate to contact the practitioner for clarification. Total time spent was 30 minutes with >50% on coordination of care and patient education. 11/11/2024 Overweight (BMI 25.0-29.9) (ICD-10 - E66.3) Wilmar is a 44-year-old male with a PMH of send with CPAP that presents for weight management follow-up. Reviewed [facility] holistic and medical approach to weight loss with emphasis on lifestyle modification. 11/11/2024: Weight: 199.7, BMI: 28.6. (+5lbs) SECA reviewed, reveals a little over 1 pound of fat gain and 2 pounds of muscle mass gain. Patient encouraged to continue making health-conscious diet choices, exercising regularly, and hydrating adequately. Plan to reinitiate treatment with Zepbound 10 mg SC weekly, discussed option for coupon stating called via Zepbound website. Also discussed possibility of discontinued coverage. If Zepbound is no longer covered, consider switching to alternative medication Wepaolavy. 09/30/24: Weight: 194lbs, BMI: 27.5. (-4lbs) 08/15/2024: Weight: 198, BMI: 28.4. (-7lbs) 07/11/2024: Weight: 205, BMI: 29.4. (-7lbs) 05/30/2024: Weight: 212, BMI: 30.4. (-12lbs) 04/18/2024: Weight: 224, BMI: 32. (-2lbs) 03/22/2024: Weight: 226, BMI: 32.4. (-2lbs) 02/22/2024: Weight: 235, BMI: 33.7. (-12lbs) 01/21/2024: Weight: 247, BMI: 35.4. All questions answered to the patient's satisfaction. Patient demonstrates understanding of diagnosis and treatments discussed. Follow-up in 4 weeks, sooner should any questions/concerns arise. Case discussed with collaborating physician Sammi Moyer who has reviewed the assessment/plan. Chart, medications, labs, and vital signs reviewed. Dictation completed with the use of [facility] voice recognition software, prone to medical misidentifications and grammatical errors. All errors are unintentional. Although the practitioner does try to identify and correct errors, some may be present. Please do not hesitate to contact the practitioner for clarification. Total time spent was 30 minutes with >50% on coordination of care and patient education. 09/30/2024 Overweight (BMI 25.0-29.9) (ICD-10 - E66.3) Wilmar is a 44-year-old male with a PMH of send with CPAP that presents for weight management follow-up. Reviewed [facility] holistic and medical approach to weight loss with emphasis on lifestyle modification. 09/30/24: Weight: 194lbs, BMI: 27.5. (-4lbs). SECA reviewed, reveals 9lbs of fat loss and 3lbs of muscle mass gain. Body composition ideal. Patient encouraged to continue making healthy diet choices and prioritizing protein intake. Discussed importance of maintaining active lifestyle. Will continue Zepbound 10 mg SC weekly x 4 weeks with goal of reaching 190 pounds. Will discuss beginning of maintenance dosing at time of follow-up. 08/15/2024: Weight: 198, BMI: 28.4. (-7lbs) 07/11/2024: Weight: 205, BMI: 29.4. (-7lbs) 05/30/2024: Weight: 212, BMI: 30.4. (-12lbs) 04/18/2024: Weight: 224, BMI: 32. (-2lbs) 03/22/2024: Weight: 226, BMI: 32.4. (-2lbs) 02/22/2024: Weight: 235, BMI: 33.7. (-12lbs) 01/21/2024: Weight: 247, BMI: 35.4. All questions answered to the patient's satisfaction. Patient demonstrates understanding of diagnosis and treatments discussed. Follow-up in 4 weeks, sooner should any questions/concerns arise. Case discussed with collaborating physician Sammi Moyer who has reviewed the assessment/plan. Chart, medications, labs, and vital signs reviewed. Dictation completed with the use of [facility] voice recognition software, prone to medical misidentifications and grammatical errors. All errors are unintentional. Although the practitioner does try to identify and correct errors, some may be present. Please do not hesitate to contact the practitioner for clarification. Total time spent was 30 minutes with >50% on coordination of care and patient education. 09/30/2024 SONIA on CPAP (ICD-10 - G47.33) Wilmar is a 44-year-old male with a PMH of send with CPAP that presents for weight management follow-up. Reviewed [facility] holistic and medical approach to weight loss with emphasis on lifestyle modification. 09/30/24: Weight: 194lbs, BMI: 27.5. (-4lbs). SECA reviewed, reveals 9lbs of fat loss and 3lbs of muscle mass gain. Body composition ideal. Patient encouraged to continue making healthy diet choices and prioritizing protein intake. Discussed importance of maintaining active lifestyle. Will continue Zepbound 10 mg SC weekly x 4 weeks with goal of reaching 190 pounds. Will discuss beginning of maintenance dosing at time of follow-up. 08/15/2024: Weight: 198, BMI: 28.4. (-7lbs) 07/11/2024: Weight: 205, BMI: 29.4. (-7lbs) 05/30/2024: Weight: 212, BMI: 30.4. (-12lbs) 04/18/2024: Weight: 224, BMI: 32. (-2lbs) 03/22/2024: Weight: 226, BMI: 32.4. (-2lbs) 02/22/2024: Weight: 235, BMI: 33.7. (-12lbs) 01/21/2024: Weight: 247, BMI: 35.4. All questions answered to the patient's satisfaction. Patient demonstrates understanding of diagnosis and treatments discussed. Follow-up in 4 weeks, sooner should any questions/concerns arise. Case discussed with collaborating physician Sammi Moyer who has reviewed the assessment/plan. Chart, medications, labs, and vital signs reviewed. Dictation completed with the use of [facility] voice recognition software, prone to medical misidentifications and grammatical errors. All errors are unintentional. Although the practitioner does try to identify and correct errors, some may be present. Please do not hesitate to contact the practitioner for clarification. Total time spent was 30 minutes with >50% on coordination of care and patient education. 08/15/2024 SONIA on CPAP (ICD-10 - G47.33) Wilmar is a 44-year-old male with a PMH of send with CPAP that presents for weight management follow-up. Reviewed [facility] holistic and medical approach to weight loss with emphasis on lifestyle modification. 08/15/2024: Weight: 198, BMI: 28.4. Patient down 7 pounds.SECA reviewed, reveals 4 pounds of fat loss and 2 pounds of muscle mass loss. Patient is successfully lost 49 pounds since establishing care with us. Discussed goals of improving overall body composition with continued weight loss as fat mass is nearing what is considered normal. He is encouraged to continue maintaining healthy lifestyle and making health-conscious diet choices. Plan to continue Zepbound 10 mg SC weekly and follow-up in 1 month. 07/11/2024: Weight: 205, BMI: 29.4. Patient down 7lbs in a little over 1 month. SECA reviewed, reveals 7lbs of fat loss and maintenance of muscle mass. Patient encouraged to continue active hobbies. Discussed the importance of continued adequate protein intake. Patient's weight loss goal is about 195. Given maintenance of weight over the last month, plan to increase Zepbound to 10 mg SC weekly and follow-up in 1 month. 05/30/2024: Weight: 212, BMI: 30.4. Patient down 12 pounds, congratulated on progress.SECA reviewed, reveals 7 pounds of fat loss and 4 pounds of muscle mass loss. The patient continues to have high muscle mass. He is encouraged to continue with his current level of physical activity/active hobbies. Discussed the importance of continued prioritization of protein intake. Plan to continue Zepbound 7.5 mg SC weekly and follow-up in 1 month. 04/18/2024: Weight: 224, BMI: 32. SECA reviewed, reveals 8 pounds of fat loss and 2 pounds of muscle mass gain. Scale reflecting only 2 pounds of weight loss, patient likely experiencing bloat/water weight. Recommending continued prioritization of protein/veggie intake and meal prepping. Patient encouraged to continue exercising regularly, recommending tracking steps/increasing walking or aerobic exercise. Goal 10K steps/day with added strength training 2-3 times weekly. Given weight loss plateau plan to increase Zepbound to 7.5 mg SC weekly and follow-up in 1 month. 03/22/2024: Weight: 226, BMI: 32.4. Patient down 9 more pounds, congratulated on continued progress.SECA reviewed, reveals 4 pounds of fat loss and 3 pounds of muscle mass loss. The patient continues to have above average muscle mass. He is encouraged to continue active hobbies such as hiking, kayaking/rolling, and going to the gym/establishing with his personal driver as planned. He is additionally encouraged to continue making health-conscious diet choices, prioritizing protein intake, and practicing portion control. Patient down 21 pounds total, given weight loss so far, plan to continue Zepbound 5 mg SC weekly for another month. 02/22/2024: Weight: 235, BMI: 33.7.Patient congratulated on over 12 pound weight loss. SECA reviewed, reveals 7 pounds of fat loss with mild loss of muscle mass. The patient is encouraged to continue making health-conscious diet choices and to increase water intake, goal 60 ounces/day. The patient is encouraged to continue with adequate protein intake and to continue increasing physical activity with goal of maintenance of muscle mass. Plan to increase dose to 5 mg SC weekly. 01/21/2024: Weight: 247, BMI: 35.4. Reviewed SECA/goals for implementing sustainable lifestyle changes. Patient is encouraged to increase physical activity, goal 8-10k steps/day. Also discussed the importance of strength training with proper safety/body mechanics for maintenance of muscle mass/bone health. Patient encouraged to drink 60-80oz water/day. Reviewed nutrition, recommending food diary x 1 week to ensure adequate caloric/protein intake. Goal of 100g protein/day. Patient does endorse difficulty sleeping discussed options to aid with improved quality of sleep including melatonin v. Magnesium glycinate v. Cortisol nursing manager. Patient interested in cortisol nursing manager, purchased in office today. Reviewed risks, benefits, and side effects of weight management medications including phentermine, Topamax, Contrave, metformin, and GLP-1 agonist.Patient would like to try GLP-1 agonist Zepbound, Rx for 2.5 mg SC weekly sent to pharmacy. Proper use/administration reviewed in office. Patient denies personal/family history of M EN syndrome/medullary thyroid cancer. Reviewed expectations for PA process/insurance coverage. Patient will work on lifestyle over the next month while he waits to hear back from the insurance company. All questions answered to the patient's satisfaction. Patient demonstrates understanding of diagnosis and treatments discussed. Follow-up in 4 weeks, sooner should any questions/concerns arise. Case discussed with collaborating physician Sammi Moyer who has reviewed the assessment/plan. Chart, medications, labs, and vital signs reviewed. Dictation completed with the use of [facility] voice recognition software, prone to medical misidentifications and grammatical errors. All errors are unintentional. Although the practitioner does try to identify and correct errors, some may be present. Please do not hesitate to contact the practitioner for clarification. Total time spent was 30 minutes with >50% on coordination of care and patient education. 05/30/2024 SONIA on CPAP (ICD-10 - G47.33) Wilmar is a 44-year-old male with a PMH of send with CPAP that presents for weight management follow-up. Reviewed [facility] holistic and medical approach to weight loss with emphasis on lifestyle modification. 05/30/2024: Weight: 212, BMI: 30.4. Patient down 12 pounds, congratulated on progress.SECA reviewed, reveals 7 pounds of fat loss and 4 pounds of muscle mass loss. The patient continues to have high muscle mass. He is encouraged to continue with his current level of physical activity/active hobbies. Discussed the importance of continued prioritization of protein intake. Plan to continue Zepbound 7.5 mg SC weekly and follow-up in 1 month. 04/18/2024: Weight: 224, BMI: 32. SECA reviewed, reveals 8 pounds of fat loss and 2 pounds of muscle mass gain. Scale reflecting only 2 pounds of weight loss, patient likely experiencing bloat/water weight. Recommending continued prioritization of protein/veggie intake and meal prepping. Patient encouraged to continue exercising regularly, recommending tracking steps/increasing walking or aerobic exercise. Goal 10K steps/day with added strength training 2-3 times weekly. Given weight loss plateau plan to increase Zepbound to 7.5 mg SC weekly and follow-up in 1 month. 03/22/2024: Weight: 226, BMI: 32.4. Patient down 9 more pounds, congratulated on continued progress.SECA reviewed, reveals 4 pounds of fat loss and 3 pounds of muscle mass loss. The patient continues to have above average muscle mass. He is encouraged to continue active hobbies such as hiking, kayaking/rolling, and going to the gym/establishing with his personal driver as planned. He is additionally encouraged to continue making health-conscious diet choices, prioritizing protein intake, and practicing portion control. Patient down 21 pounds total, given weight loss so far, plan to continue Zepbound 5 mg SC weekly for another month. 02/22/2024: Weight: 235, BMI: 33.7.Patient congratulated on over 12 pound weight loss. SECA reviewed, reveals 7 pounds of fat loss with mild loss of muscle mass. The patient is encouraged to continue making health-conscious diet choices and to increase water intake, goal 60 ounces/day. The patient is encouraged to continue with adequate protein intake and to continue increasing physical activity with goal of maintenance of muscle mass. Plan to increase dose to 5 mg SC weekly. 01/21/2024: Weight: 247, BMI: 35.4. Reviewed SECA/goals for implementing sustainable lifestyle changes. Patient is encouraged to increase physical activity, goal 8-10k steps/day. Also discussed the importance of strength training with proper safety/body mechanics for maintenance of muscle mass/bone health. Patient encouraged to drink 60-80oz water/day. Reviewed nutrition, recommending food diary x 1 week to ensure adequate caloric/protein intake. Goal of 100g protein/day. Patient does endorse difficulty sleeping discussed options to aid with improved quality of sleep including melatonin v. Magnesium glycinate v. Cortisol nursing manager. Patient interested in cortisol nursing manager, purchased in office today. Reviewed risks, benefits, and side effects of weight management medications including phentermine, Topamax, Contrave, metformin, and GLP-1 agonist.Patient would like to try GLP-1 agonist Zepbound, Rx for 2.5 mg SC weekly sent to pharmacy. Proper use/administration reviewed in office. Patient denies personal/family history of M EN syndrome/medullary thyroid cancer. Reviewed expectations for PA process/insurance coverage. Patient will work on lifestyle over the next month while he waits to hear back from the insurance company. All questions answered to the patient's satisfaction. Patient demonstrates understanding of diagnosis and treatments discussed. Follow-up in 4 weeks, sooner should any questions/concerns arise. Case discussed with collaborating physician Sammi Moyer who has reviewed the assessment/plan. Chart, medications, labs, and vital signs reviewed. Dictation completed with the use of [facility] voice recognition software, prone to medical misidentifications and grammatical errors. All errors are unintentional. Although the practitioner does try to identify and correct errors, some may be present. Please do not hesitate to contact the practitioner for clarification. Total time spent was 30 minutes with >50% on coordination of care and patient education. 03/22/2024 SONIA on CPAP (ICD-10 - G47.33) Wilmar is a 43-year-old male with a PMH of send with CPAP that presents for weight management follow-up. Reviewed [facility] holistic and medical approach to weight loss with emphasis on lifestyle modification. 03/22/2024: Weight: 226, BMI: 32.4. Patient down 9 more pounds, congratulated on continued progress.SECA reviewed, reveals 4 pounds of fat loss and 3 pounds of muscle mass loss. The patient continues to have above average muscle mass. He is encouraged to continue active hobbies such as hiking, kayaking/rolling, and going to the gym/establishing with his personal driver as planned. He is additionally encouraged to continue making health-conscious diet choices, prioritizing protein intake, and practicing portion control. Patient down 21 pounds total, given weight loss so far, plan to continue Zepbound 5 mg SC weekly for another month. 02/22/2024: Weight: 235, BMI: 33.7.Patient congratulated on over 12 pound weight loss. SECA reviewed, reveals 7 pounds of fat loss with mild loss of muscle mass. The patient is encouraged to continue making health-conscious diet choices and to increase water intake, goal 60 ounces/day. The patient is encouraged to continue with adequate protein intake and to continue increasing physical activity with goal of maintenance of muscle mass. Plan to increase dose to 5 mg SC weekly. 01/21/2024: Weight: 247, BMI: 35.4. Reviewed SECA/goals for implementing sustainable lifestyle changes. Patient is encouraged to increase physical activity, goal 8-10k steps/day. Also discussed the importance of strength training with proper safety/body mechanics for maintenance of muscle mass/bone health. Patient encouraged to drink 60-80oz water/day. Reviewed nutrition, recommending food diary x 1 week to ensure adequate caloric/protein intake. Goal of 100g protein/day. Patient does endorse difficulty sleeping discussed options to aid with improved quality of sleep including melatonin v. Magnesium glycinate v. Cortisol nursing manager. Patient interested in cortisol nursing manager, purchased in office today. Reviewed risks, benefits, and side effects of weight management medications including phentermine, Topamax, Contrave, metformin, and GLP-1 agonist.Patient would like to try GLP-1 agonist Zepbound, Rx for 2.5 mg SC weekly sent to pharmacy. Proper use/administration reviewed in office. Patient denies personal/family history of M EN syndrome/medullary thyroid cancer. Reviewed expectations for PA process/insurance coverage. Patient will work on lifestyle over the next month while he waits to hear back from the insurance company. All questions answered to the patient's satisfaction. Patient demonstrates understanding of diagnosis and treatments discussed. Follow-up in 4 weeks, sooner should any questions/concerns arise. Case discussed with collaborating physician Sammi Moyer who has reviewed the assessment/plan. Chart, medications, labs, and vital signs reviewed. Dictation completed with the use of [facility] voice recognition software, prone to medical misidentifications and grammatical errors. All errors are unintentional. Although the practitioner does try to identify and correct errors, some may be present. Please do not hesitate to contact the practitioner for clarification. Total time spent was 30 minutes with >50% on coordination of care and patient education. 04/18/2024 BMI 32.0-32.9,adul t (ICD-10 - Z68.32) Wilmar is a 43-year-old male with a PMH of send with CPAP that presents for weight management follow-up. Reviewed [facility] holistic and medical approach to weight loss with emphasis on lifestyle modification. 04/18/2024: Weight: 224, BMI: 32. SECA reviewed, reveals 8 pounds of fat loss and 2 pounds of muscle mass gain. Scale reflecting only 2 pounds of weight loss, patient likely experiencing bloat/water weight. Recommending continued prioritization of protein/veggie intake and meal prepping. Patient encouraged to continue exercising regularly, recommending tracking steps/increasing walking or aerobic exercise. Goal 10K steps/day with added strength training 2-3 times weekly. Given weight loss plateau plan to increase Zepbound to 7.5 mg SC weekly and follow-up in 1 month. 03/22/2024: Weight: 226, BMI: 32.4. Patient down 9 more pounds, congratulated on continued progress.SECA reviewed, reveals 4 pounds of fat loss and 3 pounds of muscle mass loss. The patient continues to have above average muscle mass. He is encouraged to continue active hobbies such as hiking, kayaking/rolling, and going to the gym/establishing with his personal driver as planned. He is additionally encouraged to continue making health-conscious diet choices, prioritizing protein intake, and practicing portion control. Patient down 21 pounds total, given weight loss so far, plan to continue Zepbound 5 mg SC weekly for another month. 02/22/2024: Weight: 235, BMI: 33.7.Patient congratulated on over 12 pound weight loss. SECA reviewed, reveals 7 pounds of fat loss with mild loss of muscle mass. The patient is encouraged to continue making health-conscious diet choices and to increase water intake, goal 60 ounces/day. The patient is encouraged to continue with adequate protein intake and to continue increasing physical activity with goal of maintenance of muscle mass. Plan to increase dose to 5 mg SC weekly. 01/21/2024: Weight: 247, BMI: 35.4. Reviewed SECA/goals for implementing sustainable lifestyle changes. Patient is encouraged to increase physical activity, goal 8-10k steps/day. Also discussed the importance of strength training with proper safety/body mechanics for maintenance of muscle mass/bone health. Patient encouraged to drink 60-80oz water/day. Reviewed nutrition, recommending food diary x 1 week to ensure adequate caloric/protein intake. Goal of 100g protein/day. Patient does endorse difficulty sleeping discussed options to aid with improved quality of sleep including melatonin v. Magnesium glycinate v. Cortisol nursing manager. Patient interested in cortisol nursing manager, purchased in office today. Reviewed risks, benefits, and side effects of weight management medications including phentermine, Topamax, Contrave, metformin, and GLP-1 agonist.Patient would like to try GLP-1 agonist Zepbound, Rx for 2.5 mg SC weekly sent to pharmacy. Proper use/administration reviewed in office. Patient denies personal/family history of M EN syndrome/medullary thyroid cancer. Reviewed expectations for PA process/insurance coverage. Patient will work on lifestyle over the next month while he waits to hear back from the insurance company. All questions answered to the patient's satisfaction. Patient demonstrates understanding of diagnosis and treatments discussed. Follow-up in 4 weeks, sooner should any questions/concerns arise. Case discussed with collaborating physician Sammi Moyer who has reviewed the assessment/plan. Chart, medications, labs, and vital signs reviewed. Dictation completed with the use of [facility] voice recognition software, prone to medical misidentifications and grammatical errors. All errors are unintentional. Although the practitioner does try to identify and correct errors, some may be present. Please do not hesitate to contact the practitioner for clarification. Total time spent was 30 minutes with >50% on coordination of care and patient education. 02/22/2024 SONIA on CPAP (ICD-10 - G47.33) Wilmar is a 43-year-old male with a PMH of send with CPAP that presents for weight management follow-up. Reviewed [facility] holistic and medical approach to weight loss with emphasis on lifestyle modification. 02/22/2024: Weight: 235, BMI: 33.7.Patient congratulated on over 12 pound weight loss. SECA reviewed, reveals 7 pounds of fat loss with mild loss of muscle mass. The patient is encouraged to continue making health-conscious diet choices and to increase water intake, goal 60 ounces/day. The patient is encouraged to continue with adequate protein intake and to continue increasing physical activity with goal of maintenance of muscle mass. Plan to increase dose to 5 mg SC weekly. 01/21/2024: Weight: 247, BMI: 35.4. Reviewed SECA/goals for implementing sustainable lifestyle changes. Patient is encouraged to increase physical activity, goal 8-10k steps/day. Also discussed the importance of strength training with proper safety/body mechanics for maintenance of muscle mass/bone health. Patient encouraged to drink 60-80oz water/day. Reviewed nutrition, recommending food diary x 1 week to ensure adequate caloric/protein intake. Goal of 100g protein/day. Patient does endorse difficulty sleeping discussed options to aid with improved quality of sleep including melatonin v. Magnesium glycinate v. Cortisol nursing manager. Patient interested in cortisol nursing manager, purchased in office today. Reviewed risks, benefits, and side effects of weight management medications including phentermine, Topamax, Contrave, metformin, and GLP-1 agonist.Patient would like to try GLP-1 agonist Zepbound, Rx for 2.5 mg SC weekly sent to pharmacy. Proper use/administration reviewed in office. Patient denies personal/family history of M EN syndrome/medullary thyroid cancer. Reviewed expectations for PA process/insurance coverage. Patient will work on lifestyle over the next month while he waits to hear back from the insurance company. All questions answered to the patient's satisfaction. Patient demonstrates understanding of diagnosis and treatments discussed. Follow-up in 4 weeks, sooner should any questions/concerns arise. Case discussed with collaborating physician Deborah Moyer who has reviewed the assessment/plan. Chart, medications, labs, and vital signs reviewed. Dictation completed with the use of [facility] voice recognition software, prone to medical misidentifications and grammatical errors. All errors are unintentional. Although the practitioner does try to identify and correct errors, some may be present. Please do not hesitate to contact the practitioner for clarification. Total time spent was 25 minutes with >50% on coordination of care and patient education. 01/21/2024 SONIA on CPAP (ICD-10 - G47.33) Wilmar is a 43-year-old male with a PMH of send with CPAP that presents for weight management consult. Patient was reassured and welcomed to the practice. Discussed [facility] holistic and medical approach to weight loss with emphasis on lifestyle modification. Patient is educated that a healthy lifestyle aids in combating obesity as well as reducing the risk of developing obesity-related medical complications including but not limited to diabetes and cardiovascular disease. Detailed education provided about taking steps to initiate sustainable lifestyle changes including incorporating regular physical activity, making healthy diet choices, and prioritizing mental health. Information provided about literature including The Food Rules by Danie Omer and Eat Fat Get Lean by Dr John Kiser. Handouts including lifestyle checklist, protein content of food, low calorie snacks, and cholesterol information sheet provided. Diagnostic testing/ SECA scale offered. Discussed the importance of regular SECA scale measurements to ensure healthy weight loss. 01/21/2024: Weight: 247, BMI: 35.4. Reviewed SECA/goals for implementing sustainable lifestyle changes. Patient is encouraged to increase physical activity, goal 8-10k steps/day. Also discussed the importance of strength training with proper safety/body mechanics for maintenance of muscle mass/bone health. Patient encouraged to drink 60-80oz water/day. Reviewed nutrition, recommending food diary x 1 week to ensure adequate caloric/protein intake. Goal of 100g protein/day. Patient does endorse difficulty sleeping discussed options to aid with improved quality of sleep including melatonin v. Magnesium glycinate v. Cortisol nursing manager. Patient interested in cortisol nursing manager, purchased in office today. Reviewed risks, benefits, and side effects of weight management medications including phentermine, Topamax, Contrave, metformin, and GLP-1 agonist.Patient would like to try GLP-1 agonist Zepbound, Rx for 2.5 mg SC weekly sent to pharmacy. Proper use/administration reviewed in office. Patient denies personal/family history of M EN syndrome/medullary thyroid cancer. Reviewed expectations for PA process/insurance coverage. Patient will work on lifestyle over the next month while he waits to hear back from the insurance company. After consultation and careful review of medical history, this patient would benefit from Zepbound based off of the following criteria met: Patient is over the age of 18 with a BMI of 35. Additional comorbidities include SONIA with CPAP. Patient has trialed other methods of weight loss including improving diet and exercise without success. This medication is prescribed by or in consultation with a board-certified obesity and weight management physician (Dr. Titus Moyer or Dr. Karen Moyer). All questions answered to the patient's satisfaction. Patient demonstrates understanding of diagnosis and treatments discussed. Follow-up in 4 weeks, sooner should any questions/concerns arise. Case discussed with collaborating physician Sammi Moyer who has reviewed the assessment/plan. Chart, medications, labs, and vital signs reviewed. Dictation completed with the use of [facility] voice recognition software, prone to medical misidentifications and grammatical errors. All errors are unintentional. Although the practitioner does try to identify and correct errors, some may be present. Please do not hesitate to contact the practitioner for clarification. 04/18/2024 SONIA on CPAP (ICD-10 - G47.33) Wilmar is a 43-year-old male with a PMH of send with CPAP that presents for weight management follow-up. Reviewed [facility] holistic and medical approach to weight loss with emphasis on lifestyle modification. 04/18/2024: Weight: 224, BMI: 32. SECA reviewed, reveals 8 pounds of fat loss and 2 pounds of muscle mass gain. Scale reflecting only 2 pounds of weight loss, patient likely experiencing bloat/water weight. Recommending continued prioritization of protein/veggie intake and meal prepping. Patient encouraged to continue exercising regularly, recommending tracking steps/increasing walking or aerobic exercise. Goal 10K steps/day with added strength training 2-3 times weekly. Given weight loss plateau plan to increase Zepbound to 7.5 mg SC weekly and follow-up in 1 month. 03/22/2024: Weight: 226, BMI: 32.4. Patient down 9 more pounds, congratulated on continued progress.SECA reviewed, reveals 4 pounds of fat loss and 3 pounds of muscle mass loss. The patient continues to have above average muscle mass. He is encouraged to continue active hobbies such as hiking, kayaking/rolling, and going to the gym/establishing with his personal driver as planned. He is additionally encouraged to continue making health-conscious diet choices, prioritizing protein intake, and practicing portion control. Patient down 21 pounds total, given weight loss so far, plan to continue Zepbound 5 mg SC weekly for another month. 02/22/2024: Weight: 235, BMI: 33.7.Patient congratulated on over 12 pound weight loss. SECA reviewed, reveals 7 pounds of fat loss with mild loss of muscle mass. The patient is encouraged to continue making health-conscious diet choices and to increase water intake, goal 60 ounces/day. The patient is encouraged to continue with adequate protein intake and to continue increasing physical activity with goal of maintenance of muscle mass. Plan to increase dose to 5 mg SC weekly. 01/21/2024: Weight: 247, BMI: 35.4. Reviewed SECA/goals for implementing sustainable lifestyle changes. Patient is encouraged to increase physical activity, goal 8-10k steps/day. Also discussed the importance of strength training with proper safety/body mechanics for maintenance of muscle mass/bone health. Patient encouraged to drink 60-80oz water/day. Reviewed nutrition, recommending food diary x 1 week to ensure adequate caloric/protein intake. Goal of 100g protein/day. Patient does endorse difficulty sleeping discussed options to aid with improved quality of sleep including melatonin v. Magnesium glycinate v. Cortisol nursing manager. Patient interested in cortisol nursing manager, purchased in office today. Reviewed risks, benefits, and side effects of weight management medications including phentermine, Topamax, Contrave, metformin, and GLP-1 agonist.Patient would like to try GLP-1 agonist Zepbound, Rx for 2.5 mg SC weekly sent to pharmacy. Proper use/administration reviewed in office. Patient denies personal/family history of M EN syndrome/medullary thyroid cancer. Reviewed expectations for PA process/insurance coverage. Patient will work on lifestyle over the next month while he waits to hear back from the insurance company. All questions answered to the patient's satisfaction. Patient demonstrates understanding of diagnosis and treatments discussed. Follow-up in 4 weeks, sooner should any questions/concerns arise. Case discussed with collaborating physician Sammi Moyer who has reviewed the assessment/plan. Chart, medications, labs, and vital signs reviewed. Dictation completed with the use of [facility] voice recognition software, prone to medical misidentifications and grammatical errors. All errors are unintentional. Although the practitioner does try to identify and correct errors, some may be present. Please do not hesitate to contact the practitioner for clarification. Total time spent was 30 minutes with >50% on coordination of care and patient education. 08/15/2024 Nutritional counseling (ICD-10 - Z71.3) Wilmar is a 44-year-old male with a PMH of send with CPAP that presents for weight management follow-up. Reviewed [facility] holistic and medical approach to weight loss with emphasis on lifestyle modification. 08/15/2024: Weight: 198, BMI: 28.4. Patient down 7 pounds.SECA reviewed, reveals 4 pounds of fat loss and 2 pounds of muscle mass loss. Patient is successfully lost 49 pounds since establishing care with us. Discussed goals of improving overall body composition with continued weight loss as fat mass is nearing what is considered normal. He is encouraged to continue maintaining healthy lifestyle and making health-conscious diet choices. Plan to continue Zepbound 10 mg SC weekly and follow-up in 1 month. 07/11/2024: Weight: 205, BMI: 29.4. Patient down 7lbs in a little over 1 month. SECA reviewed, reveals 7lbs of fat loss and maintenance of muscle mass. Patient encouraged to continue active hobbies. Discussed the importance of continued adequate protein intake. Patient's weight loss goal is about 195. Given maintenance of weight over the last month, plan to increase Zepbound to 10 mg SC weekly and follow-up in 1 month. 05/30/2024: Weight: 212, BMI: 30.4. Patient down 12 pounds, congratulated on progress.SECA reviewed, reveals 7 pounds of fat loss and 4 pounds of muscle mass loss. The patient continues to have high muscle mass. He is encouraged to continue with his current level of physical activity/active hobbies. Discussed the importance of continued prioritization of protein intake. Plan to continue Zepbound 7.5 mg SC weekly and follow-up in 1 month. 04/18/2024: Weight: 224, BMI: 32. SECA reviewed, reveals 8 pounds of fat loss and 2 pounds of muscle mass gain. Scale reflecting only 2 pounds of weight loss, patient likely experiencing bloat/water weight. Recommending continued prioritization of protein/veggie intake and meal prepping. Patient encouraged to continue exercising regularly, recommending tracking steps/increasing walking or aerobic exercise. Goal 10K steps/day with added strength training 2-3 times weekly. Given weight loss plateau plan to increase Zepbound to 7.5 mg SC weekly and follow-up in 1 month. 03/22/2024: Weight: 226, BMI: 32.4. Patient down 9 more pounds, congratulated on continued progress.SECA reviewed, reveals 4 pounds of fat loss and 3 pounds of muscle mass loss. The patient continues to have above average muscle mass. He is encouraged to continue active hobbies such as hiking, kayaking/rolling, and going to the gym/establishing with his personal driver as planned. He is additionally encouraged to continue making health-conscious diet choices, prioritizing protein intake, and practicing portion control. Patient down 21 pounds total, given weight loss so far, plan to continue Zepbound 5 mg SC weekly for another month. 02/22/2024: Weight: 235, BMI: 33.7.Patient congratulated on over 12 pound weight loss. SECA reviewed, reveals 7 pounds of fat loss with mild loss of muscle mass. The patient is encouraged to continue making health-conscious diet choices and to increase water intake, goal 60 ounces/day. The patient is encouraged to continue with adequate protein intake and to continue increasing physical activity with goal of maintenance of muscle mass. Plan to increase dose to 5 mg SC weekly. 01/21/2024: Weight: 247, BMI: 35.4. Reviewed SECA/goals for implementing sustainable lifestyle changes. Patient is encouraged to increase physical activity, goal 8-10k steps/day. Also discussed the importance of strength training with proper safety/body mechanics for maintenance of muscle mass/bone health. Patient encouraged to drink 60-80oz water/day. Reviewed nutrition, recommending food diary x 1 week to ensure adequate caloric/protein intake. Goal of 100g protein/day. Patient does endorse difficulty sleeping discussed options to aid with improved quality of sleep including melatonin v. Magnesium glycinate v. Cortisol nursing manager. Patient interested in cortisol nursing manager, purchased in office today. Reviewed risks, benefits, and side effects of weight management medications including phentermine, Topamax, Contrave, metformin, and GLP-1 agonist.Patient would like to try GLP-1 agonist Zepbound, Rx for 2.5 mg SC weekly sent to pharmacy. Proper use/administration reviewed in office. Patient denies personal/family history of M EN syndrome/medullary thyroid cancer. Reviewed expectations for PA process/insurance coverage. Patient will work on lifestyle over the next month while he waits to hear back from the insurance company. All questions answered to the patient's satisfaction. Patient demonstrates understanding of diagnosis and treatments discussed. Follow-up in 4 weeks, sooner should any questions/concerns arise. Case discussed with collaborating physician Sammi Moyer who has reviewed the assessment/plan. Chart, medications, labs, and vital signs reviewed. Dictation completed with the use of [facility] voice recognition software, prone to medical misidentifications and grammatical errors. All errors are unintentional. Although the practitioner does try to identify and correct errors, some may be present. Please do not hesitate to contact the practitioner for clarification. Total time spent was 30 minutes with >50% on coordination of care and patient education. 09/30/2024 Nutritional counseling (ICD-10 - Z71.3) Wilmar is a 44-year-old male with a PMH of send with CPAP that presents for weight management follow-up. Reviewed [facility] holistic and medical approach to weight loss with emphasis on lifestyle modification. 09/30/24: Weight: 194lbs, BMI: 27.5. (-4lbs). SECA reviewed, reveals 9lbs of fat loss and 3lbs of muscle mass gain. Body composition ideal. Patient encouraged to continue making healthy diet choices and prioritizing protein intake. Discussed importance of maintaining active lifestyle. Will continue Zepbound 10 mg SC weekly x 4 weeks with goal of reaching 190 pounds. Will discuss beginning of maintenance dosing at time of follow-up. 08/15/2024: Weight: 198, BMI: 28.4. (-7lbs) 07/11/2024: Weight: 205, BMI: 29.4. (-7lbs) 05/30/2024: Weight: 212, BMI: 30.4. (-12lbs) 04/18/2024: Weight: 224, BMI: 32. (-2lbs) 03/22/2024: Weight: 226, BMI: 32.4. (-2lbs) 02/22/2024: Weight: 235, BMI: 33.7. (-12lbs) 01/21/2024: Weight: 247, BMI: 35.4. All questions answered to the patient's satisfaction. Patient demonstrates understanding of diagnosis and treatments discussed. Follow-up in 4 weeks, sooner should any questions/concerns arise. Case discussed with collaborating physician Sammi Moyer who has reviewed the assessment/plan. Chart, medications, labs, and vital signs reviewed. Dictation completed with the use of [facility] voice recognition software, prone to medical misidentifications and grammatical errors. All errors are unintentional. Although the practitioner does try to identify and correct errors, some may be present. Please do not hesitate to contact the practitioner for clarification. Total time spent was 30 minutes with >50% on coordination of care and patient education. 11/11/2024 SONIA on CPAP (ICD-10 - G47.33) Wilmar is a 44-year-old male with a PMH of send with CPAP that presents for weight management follow-up. Reviewed [facility] holistic and medical approach to weight loss with emphasis on lifestyle modification. 11/11/2024: Weight: 199.7, BMI: 28.6. (+5lbs) SECA reviewed, reveals a little over 1 pound of fat gain and 2 pounds of muscle mass gain. Patient encouraged to continue making health-conscious diet choices, exercising regularly, and hydrating adequately. Plan to reinitiate treatment with Zepbound 10 mg SC weekly, discussed option for coupon stating called via Zepbound website. Also discussed possibility of discontinued coverage. If Zepbound is no longer covered, consider switching to alternative medication Wegovy. 09/30/24: Weight: 194lbs, BMI: 27.5. (-4lbs) 08/15/2024: Weight: 198, BMI: 28.4. (-7lbs) 07/11/2024: Weight: 205, BMI: 29.4. (-7lbs) 05/30/2024: Weight: 212, BMI: 30.4. (-12lbs) 04/18/2024: Weight: 224, BMI: 32. (-2lbs) 03/22/2024: Weight: 226, BMI: 32.4. (-2lbs) 02/22/2024: Weight: 235, BMI: 33.7. (-12lbs) 01/21/2024: Weight: 247, BMI: 35.4. All questions answered to the patient's satisfaction. Patient demonstrates understanding of diagnosis and treatments discussed. Follow-up in 4 weeks, sooner should any questions/concerns arise. Case discussed with collaborating physician Sammi Moyer who has reviewed the assessment/plan. Chart, medications, labs, and vital signs reviewed. Dictation completed with the use of [facility] voice recognition software, prone to medical misidentifications and grammatical errors. All errors are unintentional. Although the practitioner does try to identify and correct errors, some may be present. Please do not hesitate to contact the practitioner for clarification. Total time spent was 30 minutes with >50% on coordination of care and patient education. 11/11/2024 Nutritional counseling (ICD-10 - Z71.3) Wilmar is a 44-year-old male with a PMH of send with CPAP that presents for weight management follow-up. Reviewed [facility] holistic and medical approach to weight loss with emphasis on lifestyle modification. 11/11/2024: Weight: 199.7, BMI: 28.6. (+5lbs) SECA reviewed, reveals a little over 1 pound of fat gain and 2 pounds of muscle mass gain. Patient encouraged to continue making health-conscious diet choices, exercising regularly, and hydrating adequately. Plan to reinitiate treatment with Zepbound 10 mg SC weekly, discussed option for coupon stating called via Zepbound website. Also discussed possibility of discontinued coverage. If Zepbound is no longer covered, consider switching to alternative medication Wegovy. 09/30/24: Weight: 194lbs, BMI: 27.5. (-4lbs) 08/15/2024: Weight: 198, BMI: 28.4. (-7lbs) 07/11/2024: Weight: 205, BMI: 29.4. (-7lbs) 05/30/2024: Weight: 212, BMI: 30.4. (-12lbs) 04/18/2024: Weight: 224, BMI: 32. (-2lbs) 03/22/2024: Weight: 226, BMI: 32.4. (-2lbs) 02/22/2024: Weight: 235, BMI: 33.7. (-12lbs) 01/21/2024: Weight: 247, BMI: 35.4. All questions answered to the patient's satisfaction. Patient demonstrates understanding of diagnosis and treatments discussed. Follow-up in 4 weeks, sooner should any questions/concerns arise. Case discussed with collaborating physician Sammi Moyer who has reviewed the assessment/plan. Chart, medications, labs, and vital signs reviewed. Dictation completed with the use of [facility] voice recognition software, prone to medical misidentifications and grammatical errors. All errors are unintentional. Although the practitioner does try to identify and correct errors, some may be present. Please do not hesitate to contact the practitioner for clarification. Total time spent was 30 minutes with >50% on coordination of care and patient education. 09/30/2024 Encounter for examination of blood pressure without abnormal findings (ICD-10 - Z01.30) Wilmar is a 44-year-old male with a PMH of send with CPAP that presents for weight management follow-up. Reviewed [facility] holistic and medical approach to weight loss with emphasis on lifestyle modification. 09/30/24: Weight: 194lbs, BMI: 27.5. (-4lbs). SECA reviewed, reveals 9lbs of fat loss and 3lbs of muscle mass gain. Body composition ideal. Patient encouraged to continue making healthy diet choices and prioritizing protein intake. Discussed importance of maintaining active lifestyle. Will continue Zepbound 10 mg SC weekly x 4 weeks with goal of reaching 190 pounds. Will discuss beginning of maintenance dosing at time of follow-up. 08/15/2024: Weight: 198, BMI: 28.4. (-7lbs) 07/11/2024: Weight: 205, BMI: 29.4. (-7lbs) 05/30/2024: Weight: 212, BMI: 30.4. (-12lbs) 04/18/2024: Weight: 224, BMI: 32. (-2lbs) 03/22/2024: Weight: 226, BMI: 32.4. (-2lbs) 02/22/2024: Weight: 235, BMI: 33.7. (-12lbs) 01/21/2024: Weight: 247, BMI: 35.4. All questions answered to the patient's satisfaction. Patient demonstrates understanding of diagnosis and treatments discussed. Follow-up in 4 weeks, sooner should any questions/concerns arise. Case discussed with collaborating physician Sammi Moyer who has reviewed the assessment/plan. Chart, medications, labs, and vital signs reviewed. Dictation completed with the use of [facility] voice recognition software, prone to medical misidentifications and grammatical errors. All errors are unintentional. Although the practitioner does try to identify and correct errors, some may be present. Please do not hesitate to contact the practitioner for clarification. Total time spent was 30 minutes with >50% on coordination of care and patient education. 11/11/2024 Encounter for examination of blood pressure without abnormal findings (ICD-10 - Z01.30) Wilmar is a 44-year-old male with a PMH of send with CPAP that presents for weight management follow-up. Reviewed [facility] holistic and medical approach to weight loss with emphasis on lifestyle modification. 11/11/2024: Weight: 199.7, BMI: 28.6. (+5lbs) SECA reviewed, reveals a little over 1 pound of fat gain and 2 pounds of muscle mass gain. Patient encouraged to continue making health-conscious diet choices, exercising regularly, and hydrating adequately. Plan to reinitiate treatment with Zepbound 10 mg SC weekly, discussed option for coupon stating called via Zepbound website. Also discussed possibility of discontinued coverage. If Zepbound is no longer covered, consider switching to alternative medication Wegovy. 09/30/24: Weight: 194lbs, BMI: 27.5. (-4lbs) 08/15/2024: Weight: 198, BMI: 28.4. (-7lbs) 07/11/2024: Weight: 205, BMI: 29.4. (-7lbs) 05/30/2024: Weight: 212, BMI: 30.4. (-12lbs) 04/18/2024: Weight: 224, BMI: 32. (-2lbs) 03/22/2024: Weight: 226, BMI: 32.4. (-2lbs) 02/22/2024: Weight: 235, BMI: 33.7. (-12lbs) 01/21/2024: Weight: 247, BMI: 35.4. All questions answered to the patient's satisfaction. Patient demonstrates understanding of diagnosis and treatments discussed. Follow-up in 4 weeks, sooner should any questions/concerns arise. Case discussed with collaborating physician Sammi Moyer who has reviewed the assessment/plan. Chart, medications, labs, and vital signs reviewed. Dictation completed with the use of [facility] voice recognition software, prone to medical misidentifications and grammatical errors. All errors are unintentional. Although the practitioner does try to identify and correct errors, some may be present. Please do not hesitate to contact the practitioner for clarification. Total time spent was 30 minutes with >50% on coordination of care and patient education. Plan Of Treatment Pending Test Test Name Order Date CBC (COMPLETE BLOOD COUNT) WITH DIFF 06/2023 LIPID PANEL 01/21/2024 TSH WITH REFLEX TO FT4 01/21/2024 COMPREHENSIVE METABOLIC PANEL 01/21/2024 Next Appt Details Provider Name:ISIDRO LYNNE Antonio, 12/23/2024 08:15:00 AM, [address] [place] [address], [phone], Insurance Providers Payer Name Payer Address Payer Phone Subscriber Number Group Number Insured Name Patient Relationship to Insured Coverage Start Date Coverage End Date [employer] [address] [address] [place] [id number] Wilmar Stack Self - patient is the insured 2024 Medical (General) History Medical History History ICD Code Obesity (BMI 30-39.9) E66.9 SONIA on CPAP G47.33 Surgical History Surgery Date(Month/Year) tonsillectomy Left meniscus repiar 05/2023
--- OUTSIDE RECORDS SUMMARY | 2024-11-17 08:27 | XMS_ITS | Patient Health Record ---
[facility] Address [address] [place] [address] Care Team Providers Care Fac Engineer Name Role Phone Maren CODY, Goldy Primary Care Provider Arturo Pak Unavailable [phone] Allergies No Known Allergies Reason For Referral No Information Social History Tobacco Use: Social History Observation Description Date Details (start date - stop date) Never Smoker NA - NA Tobacco Use/Smoking Question Answer Notes Are you a: nonsmoker Additional Findings: Tobacco Non-User Current no n-smoker Alcohol Screen Question Answer Notes Did you have a drink contain ing alcohol in the past year? Yes How often did you have a dri nk containing alcohol in the past year? Monthly or less (1 point) How often did you have 6 or more drinks on one occasion in the past year? Less than monthly (1 point) Points 2 Interpretation Negative Tobacco use other than smoking: Question Answer Notes Are you an other tobacco user? No Plan Of Treatment No Information Insurance Providers Payer Name Payer Address Payer Phone Subscriber Number Group Number Insured Name Patient Relationship to Insured Coverage Start Date Coverage End Date [facility] [address] [place] [address] [phone] [id number] Wilmar Leger i Self - patient is the insured Medical (General) History Medical History History ICD Code Broken bones Chicken pox Surgical History Surgery Date(Month/Year)
--- OUTSIDE RECORDS SUMMARY | 2024-11-17 08:27 | XMS_ITS | Clinical Summary ---
Author Organization [facility] Address [address] [address] Phone Care Team Providers Care Dermatologist And Dermatopathologist Name Role Phone Goldy Engel MD Primary Care Provider Goldy Engel MD Unavailable [phone] Allergies No known active allergies Medications No known medications Active Problems No known active problems Social History Tobacco Use Types Packs/Day Years Used Date Smoking Tobacco: Never Assessed Education Answer Date Recorded Are you interested in more education? Not on katie e 08/15/2022 Are you concerned about learning? Not on file 08/15/2022 No 08/15/2022 No 08/15/2022 Digital Access Answer Date Recorded No 09/16/2022 No 09/16/2022 Reliable internet access at home? Not on file 09/16/2022 Device with a working camera? Not on file Sex and Gender Information Value Date Recorded Sex Assigned at Not on file Legal Sex Male 10:32 AM EST Gender Identity Not on file Sexual Orientation Not on file Last Filed Vital Signs Vital Sign Reading Time Taken Comments Blood Pressure 128/76 06/07/2019 3:47 PM EST Pulse - - Temperature - - Respiratory Rate - - Oxygen Saturation - - Inhaled Oxygen Concentration - - Weight - - Height - - Body Mass Index - - Plan of Treatment Health Maintenance Due Date Last Done Comments LIPID PANEL 1979 DEPRESSION SCREENING 1991 SMOKING Hx and SMOKELESS TOB ACCO SCREENING 1992 HEPATITIS C SCREENING 1997 HIV ONE-TIME SCREENING (18-6 5 YEARS) 1997 COVID-19 VACCINE (2023-2 5 season) 2023 11/15/2020 COLOGUARD 2024 COLONOSCOPY 2024 COLORECTAL CANCER SCREENING 2024 FIT TEST 2024 FOBT 2024 SIGMOIDOSCOPY 2024 VIRTUAL COLONOSCOPY 2024 Adult Td,Tdap Booster 09/30/2027 09/29/2017 HEPATITIS A VACCINES Aged Out No long er eligible based on patient's age to complete this topic HIB VACCINES Aged Out No longer eligi ble based on patient's age to complete this topic MENINGOCOCCAL VACCINES (ACWY) Aged Out No longer eligible based on patient's age to complete this topic MENINGOCOCCAL VACCINES (B) Aged Out N o longer eligible based on patient's age to complete this topic PNEUMOCOCCAL VACCINES (0-49 years) Aged Out No longer eligible based on patient's age to complete this topic Medical Devices Not on file [facility] POS [facility] POS Care Teams Dermatologist And Dermatopathologist Relationship Specialty Start Date End Date Goldy Engel MD [address] [place] [address] [place] [address] PCP - General Internal Medicine 05/05/19 Goldy Engel MD [address] [place] [address] [place] [address] 05/05/19 Additional Source Comments The information contained in this document represents components of the legal health record. It is not the complete legal health record.[facility]
[2024-11-17 08:29] VITALS: BP 112/76; PULSE 67; O2SAT 100; BMI 27.3
--- NOTE | 2024-11-17 08:29 | MHC.OFFVIS ---
Vital Signs 11/17/24 08:29 Height 6 ft Weight 201 lb 6 oz BMI 27.3 BP 112/76 Blood Pressure Location Lt brachial Position Sitting Pulse 67 Pulse Source Pulse Oximeter Pulse Oximetry (%) 100 Oxygen Delivery Method Room Air Intake Visit Reasons: 6mo F/U Intake Note: Patient presents follow up SONIA. Compliance/Weight management consult in chart, no labs. Patient states looking to see if he can get new sleep study due to loosing 50+lbs. Allergies No Known Allergies (No Known Allergies*) Allergy (Verified 11/17/24 08:33) HPI Comments Details: 43-yr-old male presents for follow-up visit of sleep apnea. Pt denies any significant interval medical history changes, other than he started to see [facility], which has been very helpful. Pt states he is doing better. Sleeping well with good day time energy whhile using PAP tx. He now has 2 Resmed PAP machines- one at home and one in [place] d/t travel for work- he will sne d us the serial number for his second machine. His primary PAP device shows resiudal AHI of 1/hr. He is curious if he still needs to have a yearly rather then the every other year [place] exam- as he has lost weight and his sleep apnea is very mild to begin with. [address], [facility] Email: [email or web address] Primary APAP machine, Compliance Report Usage August 13, 2019 November 09, 20242024 AirSense 10 AutoSet Serial number [id number] Overall usage 60% Usage greater than 4 hours 54% Average usage days used 6 hours and 20 minutes Mode APAP 5-20 cm H2O with EPR 2 Maximum pressure 18 cm H2O Median leaks 0.5 L/min Residual AHI 1.5 per hour Secondary APAP machine, we are in the process of requesting the PAP compliance Report Usage for August 13, 2019 November 09, 2024 Device: Serial number [id number] Overall usage Usage greater than 4 hours Average usage days used Mode Maximum pressure Median leaks Residual AHI Combined overall PAP usage: [facility] Medical History History of anal fissures Surgical History H/O lateral meniscus repair of right knee Social History Alcohol intake: never Patient Tobacco Use Status: Never used Tobacco Current occupation: Teacher - right handed Review of Systems Const All systems reviewed & are unremarkable except as noted in HPI and below Physical Exam Vital Signs: Last Vital Signs Pulse 67 11/17/24 08:29 BP 112/76 11/17/24 08:29 Pulse Ox 100 11/17/24 08:29 Oxygen Delivery Method Room Air 11/17/24 08:29 BMI result Body Mass Index 27.3 Const General: no acute distress Orientation/consciousness: patient oriented x3 HEENT Other: Mallampati stage Resp Effort & Inspection: normal respiratory effort and able to speak in complete sentences Neuro General: patient oriented x3 Psych Mental Status: mental status grossly normal Speech and movement: Clear speech present Attitude: cooperative Results Reviewed Results Reviewed: PAP compliance report- see HPI Assessment & Plan Assessment & Plan (1) Mild obstructive sleep apnea: Comment: HST showed AHI 8 per hour Code(s): G47.33 - Obstructive sleep apnea (adult) (pediatric) Category: Medical Plan Continue APAP 5-20 cmH2O w/ EPR 2 nightly > 4 hours, as pt continues to have good clinical effect from use. Clean CPAP machine and supplies routinely. Change CPAP supplies routinely. Use distilled water in CPAP water reservoir. Pt to contact us or respiratory company with any questions or concerns. Pt to follow-up in 12 months or sooner prn. Addendum, patient reached out to us, and shared his alternate CPAP serial number: Serial number [id number]. Unfortunately, I am unable to access the remote compliance data for this CPAP machine. We will reach out to his respiratory company to establish a ResMed air view connection if possible. Coding Level of Care Code Est Pt Level 3 (27376) Diagnoses Mild obstructive sleep apnea G47.33
== END 2024-11-17 09:21 | disposition home or self-care (01) ==
LOC: HO.HSMS 08:19
PROVIDERS: PCP Internal Medicine; Visit Provider Nurse Practitioner Family
DX: G47.33 Obstructive sleep apnea (adult) (pediatric) (principal)
CPT/HCPCS: 99213

== ENCOUNTER 2024-12-29 08:04 | Outpatient (REF) | payer OTHER, SELFPAY | END 2024-12-29 08:05 | disposition home or self-care (01) | LOC: HO.LAB 08:04 | PROVIDERS: PCP Internal Medicine; Visit Provider Urology | DX: R31.9 Hematuria, unspecified (principal); R32 Unspecified urinary incontinence | CPT/HCPCS: 81003; 87086; 88112 ==

== ENCOUNTER 2024-12-29 08:04 | Outpatient (AMB) | payer OTHER, SELFPAY ==
--- OUTSIDE RECORDS SUMMARY | 2024-09-21 04:15 | XMS_ITS ---
Author Organization [facility] [address] Address [address] [place] [address] Care Team Providers Care Tax Director Name Role Phone Goldy Engel Primary Care Provider UnavailISIDRO Morton [phone] Encounters Encounter Location Date Provider Diagnosis [facility] [address] [place] [address] 09/21/2024 ISIDRO ARRIOLA Plan Of Treatment Next Appt Details Provider Name:ISIDRO Antonio, 02/10/2025 08:45:00 AM, [address], [address], [place], [address], Progress Notes * Wilmar STACKDOB:1980 (44 yo M)Acc No.[id number]:09/21/2024 Patient: Wilmar JARQUIN Provider: Jose M ARRIOLA PA-C :1980 A ge:44 Y S ex:Male Date:09/21/2024 Address:[place] [id number] Pcp:Goldy Engel Subjective: * Chief Complaints: * * Medical History: Objective: * Vitals: Assessment: Plan: * Treatment: * Images: Billing Information: * Visit Code: * Procedure Codes: * Electronic signature of DENI ARRIOLA PA-C on 12/29/2024 at 08:45 AM EDT Sign off status: Pending * Provider: Jose M ARRIOLA PA-C Date: 09/21/2024 Generated for Donna reid/June/eTransmitting on: 12/29/2024 08:45 AM EDT
--- NOTE | 2024-12-29 08:13 | A.OFFVIS_ITS ---
Intake Visit Reasons: microscopic hematuria Intake Note: New patient presents today for initial visit for microscopic hematuria Urology Medication:None Blood Thinner:None Antibiotic Allergies:None Allergies No Known Allergies (No Known Allergies*) Allergy (Verified 12/29/24 08:14) Medication List - Last Reconciled 12/29/24 by Sharon Tian MD fluconazole mg PO solifenacin (Vesicare) 10 mg PO DAILY tirzepatide (weight loss) (Zepbound) 10 mg subcut QWEEK HPI Comments Details: Radhames is a 44-year-old male who is here for evaluation for microscopic hematuria.I have discussed reasons for blood in the urine may include but are not limited to kidney stones, cancer in the urinary tract, BPH, or inflammatory conditions of the urinary tract. I have discussed workup to include cystoscopy evaluation. History of Present Illness The patient is a 44-year-old male presenting with microscopic hematuria. The hematuria was initially noted by his primary care physician, and a urine sample from today confirmed the presence of microscopic blood. There is no history of tobacco use, which is relevant as nicotine is a risk factor for urinary tract cancers. The patient also reports urinary incontinence, characterized by daytime leakage without any prior sensation or urge. This issue has persisted for over a year, and the patient has not tried any medications to manage it. Despite a significant weight loss of 50 pounds over the past 11 months, the incontinence has not improved. The patient has no known history of an enlarged prostate, and recent blood work, including PSA levels, was normal. The patient has no family history of prostate cancer, although he is unsure of his complete family medical history. Results - Labs: Urine analysis showed microscopic hematuria. - Labs: PSA levels were normal. Plan 1. Microscopic Hematuria - Plan includes imaging studies such as a CT scan to evaluate the kidneys and bladder. - Cystoscopy is planned to visually inspect the bladder and urethra. - Urine will be sent for further testing to rule out infection and for cytology. 2. Urinary Incontinence - Medication will be prescribed to improve bladder control, with follow-up to assess effectiveness. Vesicare 10 mg - Pt interested in external catheter fitting ([place]/condom catheter) if medication is not effective. 3. Benign Prostatic Hyperplasia - Monitoring of prostate size and symptoms, as current PSA levels are normal. - No immediate intervention required unless symptoms worsen. 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 Review of Systems Const All systems reviewed & are unremarkable except as noted in HPI and below Reports no additional complaints Eyes Reports no additional complaints ENT Reports no additional complaints Card Reports no additional complaints Resp Reports no additional complaints GI Reports no additional complaints Reports as per HPI Musc Reports no additional complaints Skin/Breast Reports system reviewed and no additional complaints, except as documented Neuro Reports no additional complaints Psych Reports no additional complaints Endo Reports no additional complaints Nic/Lymph Reports no additional complaints Aller/Immun Reports no additional complaints Physical Exam Const General: healthy appearing, no acute distress and well developed Orientation/consciousness: patient oriented x3 HEENT Head: Yes normocephalic and Yes atraumatic Eyes Conjunctivae: conjunctivae normal Neck Neck: Yes normal visual inspection Chest Chest palpation & inspection: normal inspection of the chest Resp Effort & Inspection: normal respiratory effort GI Inspection: Yes normal to inspection Neuro General: patient oriented x3 Psych Appearance: grossly normal Affect: normal affect Assessment & Plan Assessment & Plan (1) Hematuria: Code(s): R31.9 - Hematuria, unspecified Category: Medical (2) Urinary incontinence: Code(s): R32 - Unspecified urinary incontinence Category: Medical Plan CT urogram, urine for surveillance culture, urine cytology, follow-up outpatient cystoscopy. Orders: Orders CT urogram Today R31.9 - Hematuria, unspecified Medications: New solifenacin (Vesicare) 10 mg PO DAILY 30 tabs 2RF Patient Instructions: The patient had an opportunity to ask questions regarding treatment plan. The patient expressed understanding and agreement with the above treatment plan. The patient is aware they should contact our office by phone for worsening of their current condition or the appearance of new symptoms. Compliance is encouraged with any medications and followup testing that is ordered. It is a privilege to be allowed the opportunity to participate in the urologic care of your patient. If you have any questions or concerns regarding treatment for the above conditions please do not hesitate to contact me. The office telephone contact is [phone]. This note is constructed in part using voice recognition software. While every effort has been made to ensure accuracy sr. pricing analyst errors may have been included. Yours sincerely, Sharon Tian MD Scribe Plan - Not visible on output: Patient was informed and verbally consented to the use of an ambient scribe for clinic note documentation during this visit. Coding Level of Care Code New Pt Level 4 (75952) Diagnoses Hematuria R31.9 Urinary incontinence R32
--- OUTSIDE RECORDS SUMMARY | 2024-12-29 08:46 | XMS_ITS | Clinical Summary ---
Author Organization [facility] Address [address] [address] Phone Care Team Providers Care Newsp[employer] Library Manager Name Role Phone Goldy Engel MD Primary Care Provider Goldy Engel MD Unavailable [phone] Allergies No known active allergies Medications No [...] DEPRESSION SCREENING 1991 SMOKING Hx and SMOKELESS TOBACCO SCREENING 1992 HEPATITIS C SCREENING 1997 HIV ONE-TIME SCREENING (18-65 YEARS) 1997 COLOGUARD 2024 COLONOSCOPY 2024 COLORECTAL CANCER SCREENING 2024 FIT TEST 2024 FOBT 2024 SIGMOIDOSCOPY 2024 VIRTUAL COLONOSCOPY 2024 INFLUENZA VACCINE (#1) 2024 , 01/24/2020, 01/27/2019, Additional history exists COVID-19 VACCINE (2024- season) 2024 11/15/2020 Adult Td,Tdap Booster 09/30/2027 09/29/2017 HEPATITIS A [...] topic Medical Devices Not on file [facility] Care Teams Newspaper Library Manager Relationship Specialty Start Date End Date Goldy Engel MD [address] [place] [address] Dr BLAKELY [address] [place] [id number] PCP - General Internal Medicine 05/05/19 Goldy Engel MD [address] [place] [address] Dr BLAKELY [address] [place] [id number] 05/05/19 Additional Source Comments The information contained in this document represents components of the legal health record. It is not the complete legal health record.[facility]
--- OUTSIDE RECORDS SUMMARY | 2024-12-29 08:46 | XMS_ITS | Patient Health Record ---
Author Organization [facility] [address] Address [address] [place] [address] Care Team Providers Care Dietetic Technician Name Role Phone UrvashiGoldy lock Primary Care Provider [facility] ISIDRO Savage Unavailable [phone] Allergies No Known Allergies Results Component Value Reference Range Notes TSH CASCADE Reviewed date:02/14/2024 11:26:47 AM Interpretation: Performing Lab: Notes/Report: [employer] [address] Wire Saw Operator - Avis Santos MD TSH CASCADE 2.14 0.40-4.00 uIU/ml LIPID PROFILE Reviewed date:02/14/2024 11:26:58 AM Interpretation: Performing Lab: Notes/Report: CHOLESTEROL 140 0-200 mg/dL TRIGLYCERIDES 62 0-150 mg/dL HDL CHOLESTEROL 43 >40 mg/dL LDL CALCULATED 85 0-100 mg/dL TC-HDLC RATIO 3.3 0-4.4 mg/dL CBC WITH AUTO DIFF Reviewed date:02/14/2024 11:27:17 AM Interpretation: Performing Lab: Notes/Report: Original Ordering Provider: ISIDRO ARRIOLA [employer], a member of [address] [address] Wire Saw Operator - Avis Santos MD WBC 7.0 4.8-10.8 [...] Notes/Report: Note Original Orderi ng Provider: ISIDRO ARRIOLA GLUCOSE 78 70-100 mg/dL Reference range applicable [...] Notes Start Date End Date Status Zepbound 12.5 MG/0.5ML Inject 12.5mg Sub cutaneous weekly; Duration: 30 days Active Problems Problem Type SNOMED Code ICD Code Onset Dates Problem Status W/U Status Risk Notes Problem Overweight (433110067) Overweight (BMI 25.0-29.9) (E66.3) Active confirmed Problem Obstructive sleep apnea syndrome (95435173) SONIA on CPAP (G47.33) Active confirmed Problem History of obesity (767257826) History of obesity (Z86.39) Active confirmed Vital Signs Heart Rate 98 /min 12/21/2024 Oximetry 99 % 12/21/2024 Blood pressure diastolic 86 mm Hg 12/21/2024 Height 70 in 12/21/2024 Blood pressure systolic 130 mm Hg 12/21/2024 Weight 193.7 lbs 12/21/2024 BMI 27.79 kg/m2 12/21/2024 Encounters Encounter Location Date Provider Diagnosis [facility] [address] [address] 01/21/2024 ISIDRO ZEINAB Obesity (BMI 30-39.9 ) E66.9 ; BMI 35.0-35.9,adult Z68.35 and SONIA on CPAP G47.33 [facility] [address] [address] 02/22/2024 ISIDRO ZEINAB Obesity (BMI 30-39.9 ) E66.9 ; BMI 33.0-33.9,adult Z68.33 and SONIA on CPAP G47.33 [facility] [address] [address] 03/22/2024 ISIDRO ZEINAB Obesity (BMI 30-39.9 ) E66.9 ; BMI 32.0-32.9,adult Z68.32 and SONIA on CPAP G47.33 [facility] [address] [address] 04/18/2024 ISIDRO ZEINAB Obesity (BMI 30-39.9 ) E66.9 ; BMI 32.0-32.9,adult Z68.32 and SONIA on CPAP G47.33 [facility] [address] [address] 05/30/2024 ISIDRO ZEINAB Obesity (BMI 30-39.9 ) E66.9 ; BMI 30.0-30.9,adult Z68.30 and SONIA on CPAP G47.33 [facility] [address] [address] 07/11/2024 ISIDRO ZEINAB Overweight (BMI 25.0-29.9) E66.3 ; BMI 29.0-29.9,adult Z68.29 and SONIA on CPAP G47.33 [facility] [address] [address] 08/15/2024 [facility] Overweight (BMI 25.0-29.9) E66.3 ; BMI 28.0-28.9,adult Z68.28 ; SONIA on CPAP G47.33 and Nutritional counseling Z71.3 [facility] [address] 09/30/2024 [facility] BMI 28.0-28.9,adult Z68.28 ; Overweight (BMI 25.0-29.9) E66.3 ; SONIA on CPAP G47.33 ; Nutritional counseling Z71.3 and Encounter for examination of blood pressure without abnormal findings Z01.30 [facility] [address] 11/11/2024 [facility] BMI 28.0-28.9,adult Z68.28 ; Overweight (BMI 25.0-29.9) E66.3 ; SONIA on CPAP G47.33 ; Nutritional counseling Z71.3 and Encounter for examination of blood pressure without abnormal findings Z01.30 [facility] [address] 12/21/2024 [facility] BMI 27.0-27.9,adult Z68.27 ; Overweight (BMI 25.0-29.9) E66.3 ; SONIA on CPAP G47.33 ; Nutritional counseling Z71.3 and Encounter for examination of blood pressure without abnormal findings Z01.30 [facility] [address] [address] 01/20/2024 [facility] [address] [address] 01/21/2024 [facility] [address] [address] 03/29/2024 [facility] Obesity (BMI 30-39.9 ) E66.9 [facility] [address] [address] 04/14/2024 [facility] [address] [facility] [address] [place] [address] 10/10/2024 ISIDRO KINSMAN [facility] [address] [place] [address] 10/20/2024 ISIDRO ONEALHAM [facility] [address] [address] 11/22/2024 ISIDRO KINSMAN Assessments Encounter Date Diagnosis (ICD Code) Assessment [...] including melatonin v. Magnesium glycinate v. Cortisol racing manager. Patient interested in cortisol racing manager, purchased in office today. Reviewed risks, [...] reviewed. Dictation completed with the use of [employer] voice recognition software, prone to medical misidentifications [...] including melatonin v. Magnesium glycinate v. Cortisol racing manager. Patient interested in cortisol racing manager, purchased in office today. Reviewed risks, [...] reviewed. Dictation completed with the use of [employer] voice recognition software, prone to medical misidentifications [...] including melatonin v. Magnesium glycinate v. Cortisol racing manager. Patient interested in cortisol racing manager, purchased in office today. Reviewed risks, [...] reviewed. Dictation completed with the use of [employer] voice recognition software, prone to medical misidentifications [...] including melatonin v. Magnesium glycinate v. Cortisol racing manager. Patient interested in cortisol racing manager, purchased in office today. Reviewed risks, [...] reviewed. Dictation completed with the use of [employer] voice recognition software, prone to medical misidentifications [...] and going to the gym/establishing with his personalized living manager as planned. He is additionally encouraged to [...] including melatonin v. Magnesium glycinate v. Cortisol racing manager. Patient interested in cortisol racing manager, purchased in office today. Reviewed risks, [...] reviewed. Dictation completed with the use of [employer] voice recognition software, prone to medical misidentifications [...] and going to the gym/establishing with his personalized living manager as planned. He is additionally encouraged to [...] including melatonin v. Magnesium glycinate v. Cortisol racing manager. Patient interested in cortisol racing manager, purchased in office today. Reviewed risks, [...] reviewed. Dictation completed with the use of [employer] voice recognition software, prone to medical misidentifications [...] and going to the gym/establishing with his personalized living manager as planned. He is additionally encouraged to [...] including melatonin v. Magnesium glycinate v. Cortisol racing manager. Patient interested in cortisol racing manager, purchased in office today. Reviewed risks, [...] reviewed. Dictation completed with the use of [employer] voice recognition software, prone to medical misidentifications [...] and going to the gym/establishing with his personalized living manager as planned. He is additionally encouraged to [...] including melatonin v. Magnesium glycinate v. Cortisol racing manager. Patient interested in cortisol racing manager, purchased in office today. Reviewed risks, [...] reviewed. Dictation completed with the use of [employer] voice recognition software, prone to medical misidentifications [...] and going to the gym/establishing with his personalized living manager as planned. He is additionally encouraged to [...] including melatonin v. Magnesium glycinate v. Cortisol racing manager. Patient interested in cortisol racing manager, purchased in office today. Reviewed risks, [...] reviewed. Dictation completed with the use of [employer] voice recognition software, prone to medical misidentifications [...] and going to the gym/establishing with his personalized living manager as planned. He is additionally encouraged to [...] including melatonin v. Magnesium glycinate v. Cortisol racing manager. Patient interested in cortisol racing manager, purchased in office today. Reviewed risks, [...] reviewed. Dictation completed with the use of [employer] voice recognition software, prone to medical misidentifications [...] and going to the gym/establishing with his personalized living manager as planned. He is additionally encouraged to [...] including melatonin v. Magnesium glycinate v. Cortisol racing manager. Patient interested in cortisol racing manager, purchased in office today. Reviewed risks, [...] reviewed. Dictation completed with the use of [employer] voice recognition software, prone to medical misidentifications [...] reviewed. Dictation completed with the use of [employer] voice recognition software, prone to medical misidentifications [...] reviewed. Dictation completed with the use of [employer] voice recognition software, prone to medical misidentifications and grammatical errors. All errors are unintentional. Although the practitioner does try to identify and correct errors, some may be present. Please do not hesitate to contact the practitioner for clarification. Total time spent was 30 minutes with >50% on coordination of care and patient education. 12/21/2024 BMI 27.0-27.9,adul t (ICD-10 - Z68.27) Wilmar is a 44-year-old male with a PMH of send with CPAP that presents for weight management follow-up. Reviewed [facility] holistic and medical approach to weight loss with emphasis on lifestyle modification. 12/21/2024: Weight: 193.7, BMI: 27.8 (-6lbs) SECA reviewed, reveals primarily fat loss. Patient encouraged continuing health-conscious diet choices, prioritizing protein intake, hydrating adequately, and maintaining active lifestyle. Reviewed weight loss goals, patient would like to lose an additional 5 to 10 pounds with goal of normalizing fat mass. Plan to increase dose of Zepbound to 12.5 mg SC weekly and follow-up in 6 weeks. 11/11/2024: Weight: 199.7, BMI: 28.6. (+5lbs) 09/30/24: Weight: 194lbs, BMI: 27.5. (-4lbs) 08/15/2024: [...] reviewed. Dictation completed with the use of [employer] voice recognition software, prone to medical misidentifications [...] and going to the gym/establishing with his personalized living manager as planned. He is additionally encouraged to [...] including melatonin v. Magnesium glycinate v. Cortisol racing manager. Patient interested in cortisol racing manager, purchased in office today. Reviewed risks, [...] reviewed. Dictation completed with the use of [employer] voice recognition software, prone to medical misidentifications [...] and going to the gym/establishing with his personalized living manager as planned. He is additionally encouraged to [...] including melatonin v. Magnesium glycinate v. Cortisol racing manager. Patient interested in cortisol racing manager, purchased in office today. Reviewed risks, [...] reviewed. Dictation completed with the use of [employer] voice recognition software, prone to medical misidentifications [...] and going to the gym/establishing with his personalized living manager as planned. He is additionally encouraged to [...] including melatonin v. Magnesium glycinate v. Cortisol racing manager. Patient interested in cortisol racing manager, purchased in office today. Reviewed risks, [...] arise. Case discussed with collaborating physician Sammi Moyre who has reviewed the assessment/plan. Chart, medications, labs, and vital signs reviewed. Dictation completed with the use of [employer] voice recognition software, prone to medical misidentifications and grammatical errors. All errors are unintentional. Although the practitioner does try to identify and correct errors, some may be present. Please do not hesitate to contact the practitioner for clarification. Total time spent was 30 minutes with >50% on coordination of care and patient education. 12/21/2024 Overweight (BMI 25.0-29.9) (ICD-10 - E66.3) Wilmar is a 44-year-old male with a PMH of send with CPAP that presents for weight management follow-up. Reviewed [facility] holistic and medical approach to weight loss with emphasis on lifestyle modification. 12/21/2024: Weight: 193.7, BMI: 27.8 (-6lbs) SECA reviewed, reveals primarily fat loss. Patient encouraged continuing health-conscious diet choices, prioritizing protein intake, hydrating adequately, and maintaining active lifestyle. Reviewed weight loss goals, patient would like to lose an additional 5 to 10 pounds with goal of normalizing fat mass. Plan to increase dose of Zepbound to 12.5 mg SC weekly and follow-up in 6 weeks. 11/11/2024: Weight: 199.7, BMI: 28.6. (+5lbs) 09/30/24: Weight: 194lbs, BMI: 27.5. (-4lbs) 08/15/2024: [...] reviewed. Dictation completed with the use of [employer] voice recognition software, prone to medical misidentifications and grammatical errors. All errors are unintentional. Although the practitioner does try to identify and correct errors, some may be present. Please do not hesitate to contact the practitioner for clarification. Total time spent was 30 minutes with >50% on coordination of care and patient education. 12/21/2024 SONIA on CPAP (ICD-10 - G47.33) Wilmar is a 44-year-old male with a PMH of send with CPAP that presents for weight management follow-up. Reviewed [facility] holistic and medical approach to weight loss with emphasis on lifestyle modification. 12/21/2024: Weight: 193.7, BMI: 27.8 (-6lbs) SECA reviewed, reveals primarily fat loss. Patient encouraged continuing health-conscious diet choices, prioritizing protein intake, hydrating adequately, and maintaining active lifestyle. Reviewed weight loss goals, patient would like to lose an additional 5 to 10 pounds with goal of normalizing fat mass. Plan to increase dose of Zepbound to 12.5 mg SC weekly and follow-up in 6 weeks. 11/11/2024: Weight: 199.7, BMI: 28.6. (+5lbs) 09/30/24: Weight: 194lbs, BMI: 27.5. (-4lbs) 08/15/2024: [...] reviewed. Dictation completed with the use of [employer] voice recognition software, prone to medical misidentifications [...] reviewed. Dictation completed with the use of [employer] voice recognition software, prone to medical misidentifications [...] reviewed. Dictation completed with the use of [employer] voice recognition software, prone to medical misidentifications [...] reviewed. Dictation completed with the use of [employer] voice recognition software, prone to medical misidentifications [...] and going to the gym/establishing with his personalized living manager as planned. He is additionally encouraged to [...] including melatonin v. Magnesium glycinate v. Cortisol racing manager. Patient interested in cortisol racing manager, purchased in office today. Reviewed risks, [...] reviewed. Dictation completed with the use of [employer] voice recognition software, prone to medical misidentifications [...] and going to the gym/establishing with his personalized living manager as planned. He is additionally encouraged to [...] including melatonin v. Magnesium glycinate v. Cortisol racing manager. Patient interested in cortisol racing manager, purchased in office today. Reviewed risks, [...] reviewed. Dictation completed with the use of [employer] voice recognition software, prone to medical misidentifications [...] and going to the gym/establishing with his personalized living manager as planned. He is additionally encouraged to [...] including melatonin v. Magnesium glycinate v. Cortisol racing manager. Patient interested in cortisol racing manager, purchased in office today. Reviewed risks, [...] reviewed. Dictation completed with the use of [employer] voice recognition software, prone to medical misidentifications [...] and going to the gym/establishing with his personalized living manager as planned. He is additionally encouraged to [...] including melatonin v. Magnesium glycinate v. Cortisol racing manager. Patient interested in cortisol racing manager, purchased in office today. Reviewed risks, [...] reviewed. Dictation completed with the use of [employer] voice recognition software, prone to medical misidentifications [...] including melatonin v. Magnesium glycinate v. Cortisol racing manager. Patient interested in cortisol racing manager, purchased in office today. Reviewed risks, [...] reviewed. Dictation completed with the use of [employer] voice recognition software, prone to medical misidentifications [...] including melatonin v. Magnesium glycinate v. Cortisol racing manager. Patient interested in cortisol racing manager, purchased in office today. Reviewed risks, [...] reviewed. Dictation completed with the use of [employer] voice recognition software, prone to medical misidentifications [...] and going to the gym/establishing with his personalized living manager as planned. He is additionally encouraged to [...] including melatonin v. Magnesium glycinate v. Cortisol racing manager. Patient interested in cortisol racing manager, purchased in office today. Reviewed risks, [...] reviewed. Dictation completed with the use of [employer] voice recognition software, prone to medical misidentifications [...] and going to the gym/establishing with his personalized living manager as planned. He is additionally encouraged to [...] including melatonin v. Magnesium glycinate v. Cortisol racing manager. Patient interested in cortisol racing manager, purchased in office today. Reviewed risks, [...] reviewed. Dictation completed with the use of [employer] voice recognition software, prone to medical misidentifications [...] reviewed. Dictation completed with the use of [employer] voice recognition software, prone to medical misidentifications [...] reviewed. Dictation completed with the use of [employer] voice recognition software, prone to medical misidentifications and grammatical errors. All errors are unintentional. Although the practitioner does try to identify and correct errors, some may be present. Please do not hesitate to contact the practitioner for clarification. Total time spent was 30 minutes with >50% on coordination of care and patient education. 12/21/2024 Nutritional counseling (ICD-10 - Z71.3) Wilmar is a 44-year-old male with a PMH of send with CPAP that presents for weight management follow-up. Reviewed [facility] holistic and medical approach to weight loss with emphasis on lifestyle modification. 12/21/2024: Weight: 193.7, BMI: 27.8 (-6lbs) SECA reviewed, reveals primarily fat loss. Patient encouraged continuing health-conscious diet choices, prioritizing protein intake, hydrating adequately, and maintaining active lifestyle. Reviewed weight loss goals, patient would like to lose an additional 5 to 10 pounds with goal of normalizing fat mass. Plan to increase dose of Zepbound to 12.5 mg SC weekly and follow-up in 6 weeks. 11/11/2024: Weight: 199.7, BMI: 28.6. (+5lbs) 09/30/24: Weight: 194lbs, BMI: 27.5. (-4lbs) 08/15/2024: [...] reviewed. Dictation completed with the use of [employer] voice recognition software, prone to medical misidentifications [...] reviewed. Dictation completed with the use of [employer] voice recognition software, prone to medical misidentifications and grammatical errors. All errors are unintentional. Although the practitioner does try to identify and correct errors, some may be present. Please do not hesitate to contact the practitioner for clarification. Total time spent was 30 minutes with >50% on coordination of care and patient education. 12/21/2024 Encounter for examination of blood pressure without abnormal findings (ICD-10 - Z01.30) Wilmar is a 44-year-old male with a PMH of send with CPAP that presents for weight management follow-up. Reviewed [facility] holistic and medical approach to weight loss with emphasis on lifestyle modification. 12/21/2024: Weight: 193.7, BMI: 27.8 (-6lbs) SECA reviewed, reveals primarily fat loss. Patient encouraged continuing health-conscious diet choices, prioritizing protein intake, hydrating adequately, and maintaining active lifestyle. Reviewed weight loss goals, patient would like to lose an additional 5 to 10 pounds with goal of normalizing fat mass. Plan to increase dose of Zepbound to 12.5 mg SC weekly and follow-up in 6 weeks. 11/11/2024: Weight: 199.7, BMI: 28.6. (+5lbs) 09/30/24: Weight: 194lbs, BMI: 27.5. (-4lbs) 08/15/2024: [...] reviewed. Dictation completed with the use of [employer] voice recognition software, prone to medical misidentifications [...] reviewed. Dictation completed with the use of [employer] voice recognition software, prone to medical misidentifications [...] reviewed. Dictation completed with the use of [employer] voice recognition software, prone to medical misidentifications [...] Next Appt Details Provider Name:ISIDRO LYNNE Antonio, 02/10/2025 08:45:00 AM, [address] [facility], [facility] [address], [place], [address], Insurance Providers Payer Name Payer Address Payer Phone Subscriber Number Group Number Insured Name Patient Relationship to Insured Coverage Start Date Coverage End Date [employer] [address] [address] [place] [address] [id number] Wilmar Stack Self - patient is the insured 2024 Medical (General) History Medical History History ICD Code Obesity (BMI 30-39.9) E66.9 SONIA on CPAP G47.33 Surgical History Surgery Date(Month/Year) tonsillectomy Left meniscus repiar 05/2023
== END 2024-12-29 09:11 | disposition home or self-care (01) ==
LOC: HO.HUSH 08:05
PROVIDERS: PCP Internal Medicine; Visit Provider Urology
DX: R31.9 Hematuria, unspecified (principal); R32 Unspecified urinary incontinence; Z13.9 Encounter for screening, unspecified
CPT/HCPCS: 99204

== ENCOUNTER 2025-01-27 08:20 | Outpatient (REF) | payer OTHER, SELFPAY ==
--- NOTE | ~2025-01-27 | CT_ITS ---
CLINICAL HISTORY: R31.9 - Hematuria, unspecified --- Additional Notes or Special Instructions: please measure prostate CT abdomen and pelvis with and without contrast Comparison: None provided Findings: No acute findings within visualized lung bases. A 5 mm nonobstructing calculus in the left kidney. No hydronephrosis. No additional renal, ureteral or bladder calculi identified. Kidneys enhance homogeneously. No focal renal lesions. No findings to suggest urothelial neoplasm within opacified portions of the renal collecting systems, ureters or the bladder. Normal-sized prostate. Liver, spleen, adrenal glands, pancreas, and gallbladder are unremarkable. No free air or free fluid. Noncalcified and nonaneurysmal abdominal aorta. Mild gastric wall thickening. Stomach is nondistended. No small bowel obstruction. Mildly increased stool burden throughout the colon. No acute appendicitis. No definite pathologically enlarged lymph nodes. No acute osseous abnormality. No lytic or sclerotic osseous lesions. Impression: 1. Nonobstructing 5 mm left renal calculus. 2. Additional chronic/nonacute findings as above. If patient continues to have persistent or worsening symptoms, repeat CT IVP or further evaluation with cystoureteroscopy may be considered. This document has been electronically signed by: Maurice Perla MD on 01/28/2025 12:00:43
[2025-01-27] MEDS: iohexoL 350 MG/ML 100 ML INFUS..BTL IV (09:21)
[2025-01-31 09:22] LABS: Creatinine POC 0.8 mg/dL (0.5-1.4); GFR POC > 60
== END 2025-01-27 08:21 | disposition home or self-care (01) ==
LOC: HO.CT 08:20
PROVIDERS: PCP Internal Medicine; Visit Provider Urology
DX: R31.9 Hematuria, unspecified (principal)
CPT/HCPCS: 74178; 82565; Q9967

== ENCOUNTER → 2025-01-27 08:22 | Outpatient (BNV) | payer OTHER, SELFPAY | PROVIDERS: PCP Internal Medicine; Visit Provider Radiology Diagnostic Radiology | DX: N20.0 Calculus of kidney (principal) | CPT/HCPCS: 74178 ==

== ENCOUNTER 2025-02-17 09:05 | Outpatient (AMB) | payer OTHER, SELFPAY ==
--- NOTE | 2025-02-17 09:28 | A.OFFVIS_ITS ---
Intake Visit Reasons: cysto/CT Intake Note: Patient presents today for a cystoscopy/CT * 01/27 CT Urogram Urology Medication:None Blood Thinner:None Antibiotic Allergies:None Lot #: [id number] EXP:09/27/27 Allergies No Known Allergies (No Known Allergies*) Allergy (Verified 02/17/25 09:28) Medication List - Last Reconciled 02/17/25 by Sharon Tian MD fluconazole mg PO solifenacin (Vesicare) 10 mg PO DAILY tirzepatide (weight loss) (Zepbound) 10 mg subcut QWEEK HPI Comments Details: 02/17/2025--The patient is here for fu microscopic hematuria. CT urogram on 01/27 25 --5 mm left renal stone. The patient also has urinary symptoms of urgency he is initially evaluated on 12/29/2024 and started on VESIcare. History of Present Illness The patient is a 44-year-old male presenting with urinary symptoms including microscopic hematuria and urgency. The patient was evaluated for microscopic hematuria, and a CT urogram performed on 01/27/25 revealed a 5 mm left renal stone. The patient has not experienced kidney stones previously, and the stone is not causing a blockage. The patient reports urinary urgency, which was initially evaluated on 12/29/24, and he was started on Vesicare (solifenacin). The medication has been effective in alleviating symptoms. The patient has experienced urinary leakage for about a year, particularly at night and during activities such as sneezing or coughing. He has been using pads to manage the leakage but finds them inconvenient, especially during travel and work. 25 minutes spent in review of records pertaining to this visit and including [id number] discussion with the patient and documentation of this visit. Results - CT urogram on 01/27/25: 5 mm left renal stone - Cystoscopy today: Mild/Moderate trabeculations of the bladder wall, non- obstructive prostate, no suspicious bladder lesions observed Plan 1. Microscopic Hematuria - Continue monitoring for any changes in symptoms or new developments. 2. Left Renal Stone - Consideration of lithotripsy to break up the stone for easier passage. 3. Urinary Urgency/Bladder Spasms - Continue Vesicare (solifenacin) as it has been effective in symptom management. The patient is interested in an [place] catheter 12/29/24--Radhames is a 44-year-old male who is here for evaluation for microscopic hematuria. I have discussed reasons for blood in the urine may include but are not limited to kidney stones, cancer in the urinary tract, BPH, or inflammatory conditions of the urinary tract. I have discussed workup to include cystoscopy evaluation. History of Present Illness The patient is a 44-year-old male presenting with microscopic hematuria. The hematuria was initially noted by his primary care physician, and a urine sample from today confirmed the presence of microscopic blood. There is no history of tobacco use, which is relevant as nicotine is a risk factor for urinary tract cancers. The patient also reports urinary incontinence, characterized by daytime leakage without any prior sensation or urge. This issue has persisted for over a year, and the patient has not tried any medications to manage it. Despite a significant weight loss of 50 pounds over the past 11 months, the incontinence has not improved. The patient has no known history of an enlarged prostate, and recent blood work, including PSA levels, was normal. The patient has no family history of prostate cancer, although he is unsure of his complete family medical history. Results - Labs: Urine analysis showed microscopic hematuria. - Labs: PSA levels were normal. Plan 1. Microscopic Hematuria - Plan includes imaging studies such as a CT scan to evaluate the kidneys and bladder. - Cystoscopy is planned to visually inspect the bladder and urethra. - Urine will be sent for further testing to rule out infection and for cytology. 2. Urinary Incontinence - Medication will be prescribed to improve bladder control, with follow-up to assess effectiveness. Vesicare 10 mg - Pt interested in external catheter fitting ([place]/condom catheter) if medication is not effective. 3. Benign Prostatic Hyperplasia - Monitoring of prostate size and symptoms, as current PSA levels are normal. - No immediate intervention required unless symptoms worsen. [facility] Medical History History of anal fissures Surgical History H/O lateral meniscus repair of right knee Social History Alcohol intake: never Patient Tobacco Use Status: Never used Tobacco Current occupation: Teacher - right handed Review of Systems Const All systems reviewed & are unremarkable except as noted in HPI and below Reports no additional complaints Eyes Reports no additional complaints ENT Reports no additional complaints Card Reports no additional complaints Resp Reports no additional complaints GI Reports no additional complaints Reports as per HPI Musc Reports no additional complaints Skin/Breast Reports system reviewed and no additional complaints, except as documented Neuro Reports no additional complaints Psych Reports no additional complaints Endo Reports no additional complaints Nic/Lymph Reports no additional complaints Aller/Immun Reports no additional complaints Office Procedures Cystoscopy Consent Discussed risk and benefit or proposed procedure with the patient. Information consent for procedure given to the patient. Discussed technical aspects, risks, benefits and alternatives in full. Addressed all of the patient's questions and concerns regarding the procedure. The patient demonstrated knowledge and understanding. They wish to proceed with this procedure. Preparation The patient was prepped in the usual manner. A party plan sales agent was present and in the room. Genitalia was prepped with betadine solution in a sterile manner. Lidocaine Jelly 2% was placed into the urethra and 16Fr flexible Olympus cystoscope was inserted into the meatus after adequate lubrication. Procedure Time out per protocol performed. The flexible cystoscope is passed transurethrally: The bladder was inspected in its entirety with utilization retroflexion displaying: Tumor(s): no suspicious bladder lesions visualized Trabeculation: Mild to Moderate Mucosal Erthema: Orifices: normal shape and position Urethra: normal Cystoscopy findings: Mild/Moderate trabeculations of the bladder wall, non- obstructive prostate, no suspicious bladder lesions observed [id number] DISPOSABLE SCOPE URO-G FLEXIBLE SCOPE Procedure code (CPT) selection complete Office Meds lidocaine HCl 2 % mucosal jelly in applicator Performing Provider: Sharon Tian MD Performing Location: [facility] Administered by: Nelson Muir LPN on 02/17/25 09:42 Dose Route Admin Location Dispensed Lot Number Expiration Date [facility] [employer] 10 mL intra-urethral 20 mL ciprofloxacin HCl 500 mg tablet Performing Provider: Sharon Tian MD Performing Location: [facility] Administered by: Nelson Muir LPN on 02/17/25 09:42 Dose Route Admin Location Dispensed Lot Number Expiration Date [facility] [employer] 500 mg PO 1 tab phenazopyridine 200 mg tablet Performing Provider: Sharon Tian MD Performing Location[facility] Administered by: Nelson Muir LPN on 02/17/25 09:42 Dose Route Admin Location Dispensed Lot Number Expiration Date [employer] 200 mg PO 1 tab Results AMB Urinalysis, Automated UA Leukoctes 0 Adelina/uL Last Edit by Crystal Monico on 02/17/25 13:53 UA Nitrite Negative Last Edit by Crystal Marc on 02/17/25 13:53 UA Urobilinogen 0.2 mg/dL Last Edit by Crystal Marc on 02/17/25 13:53 UA Protein 0 mg/dL Last Edit by Crystal Marc on 02/17/25 13:53 UA pH 6.0 Last Edit by Crystal Marc on 02/17/25 13:53 UA Blood 80 Ganga/uL Last Edit by Crystal Marc on 02/17/25 13:53 UA Specific [place] 1.010 Last Edit by Crystal Marc on 02/17/25 13:53 UA Ketone Negative Last Edit by Crystal Marc on 02/17/25 13:53 UA Bilirubin 0 mg/dL Last Edit by Crystal Marc on 02/17/25 13:53 UA Glucose 0 mg/dL Last Edit by Crystal Marc on 02/17/25 13:53 Results Reviewed Results Reviewed: Laboratory Last Values Urine pH (Auto) 6.0 02/17/25 12:04 Specific [place] (Auto) 1.010 02/17/25 12:04 Urine Protein (Auto) 0 mg/dL 02/17/25 12:04 Glucose (UA)(Auto) 0 mg/dL 02/17/25 12:04 Urine Ketones (Auto) Negative 02/17/25 12:04 Urine Blood (Auto) 80 Ganga/uL 02/17/25 12:04 Urine Nitrite (Auto) Negative 02/17/25 12:04 Urine Bilirubin (Auto) 0 mg/dL 02/17/25 12:04 Urine Urobilinogen (Auto) 0.2 mg/dL 02/17/25 12:04 Leukocyte Esterase (Auto) 0 Adelina/uL 02/17/25 12:04 Date of Service: 01/27/25 CLINICAL HISTORY: R31.9 - Hematuria, unspecified --- Additional Notes or Special Instructions: please measure prostate CT abdomen and pelvis with and without contrast Comparison: None provided Findings: No acute findings within visualized lung bases. A 5 mm nonobstructing calculus in the left kidney. No hydronephrosis. No additional renal, ureteral or bladder calculi identified. Kidneys enhance homogeneously. No focal renal lesions. No findings to suggest urothelial neoplasm within opacified portions of the renal collecting systems, ureters or the bladder. Normal-sized prostate. Liver, spleen, adrenal glands, pancreas, and gallbladder are unremarkable. No free air or free fluid. Noncalcified and nonaneurysmal abdominal aorta. Mild gastric wall thickening. Stomach is nondistended. No small bowel obstruction. Mildly increased stool burden throughout the colon. No acute appendicitis. No definite pathologically enlarged lymph nodes. No acute osseous abnormality. No lytic or sclerotic osseous lesions. Impression: 1. Nonobstructing 5 mm left renal calculus. 2. Additional chronic/nonacute findings as above. If patient continues to have persistent or worsening symptoms, repeat CT IVP or further evaluation with cystoureteroscopy may be considered. Assessment & Plan Assessment & Plan (1) Kidney stone on left side: Code(s): N20.0 - Calculus of kidney Category: Medical (2) Hematuria: Code(s): R31.9 - Hematuria, unspecified Category: Medical (3) Urinary incontinence: Code(s): R32 - Unspecified urinary incontinence Category: Medical Plan Plan 1. Microscopic Hematuria - Continue monitoring for any changes in symptoms or new developments. 2. Left Renal Stone - Consideration of lithotripsy to break up the stone for easier passage. 3. Urinary Urgency/Bladder Spasms - Continue Vesicare (solifenacin) as it has been effective in symptom management. The patient is interested in an [place] catheter Orders: Orders AMB Cystoscopy 02/17/25 R31.9 - Hematuria, unspecified, R32 - Unspecified urinary incontinence AMB Urinalysis Automated 02/17/25 R31.9 - Hematuria, unspecified, R32 - Unspecified urinary incontinence Medications: New external catheter, male Change once daily as needed for urinary incontinence 30 ea 12RF Urinary incontinence R32 - Unspecified urinary incontinence drainage bag (Curity Drainage Bag) As directed 20 ea 12RF R32 - Unspecified urinary incontinence external catheter, male Change once daily as needed for urinary incontinence 30mm, patient can choose appropriate size 30 ea 12RF Urinary incontinence R32 - Unspecified urinary incontinence miscellaneous medical supply (Comfort Leg Bag Straps kit) As directed 2 ea 12RF R32 - Unspecified urinary incontinence Refilled solifenacin (Vesicare) 10 mg PO DAILY 90 tabs 3RF Patient Instructions: The patient had an opportunity to ask questions regarding treatment plan. The patient expressed understanding and agreement with the above treatment plan. The patient is aware they should contact our office by phone for worsening of their current condition or the appearance of new symptoms. Compliance is encouraged with any medications and followup testing that is ordered. It is a privilege to be allowed the opportunity to participate in the urologic care of your patient. If you have any questions or concerns regarding treatment for the above conditions please do not hesitate to contact me. The office telephone contact is [phone]. This note is constructed in part using voice recognition software. While every effort has been made to ensure accuracy inspector automatic typewriter errors may have been included. Yours sincerely, Sharon Tian MD Scribe Plan - Not visible on output: Patient was informed and verbally consented to the use of an ambient scribe for clinic note documentation during this visit. Coding Level of Care Code Est Pt Level 3 (70333) Diagnoses Kidney stone on left side N20.0 Hematuria R31.9 Urinary incontinence R32 CPT Codes Cystoscopy - CPT: [id number] ([id number])
--- OUTSIDE RECORDS SUMMARY | 2025-02-17 09:52 | XMS_ITS | Clinical Summary ---
Author Organization [facility] Address [address] [address] Phone Care Team Providers Care Can Maker Name Role Phone Goldy Engel MD Primary Care Provider Goldy Engel MD Unavailable [phone] Allergies No known active allergies Medications No [...] topic Medical Devices Not on file Insurance [facility] HMO POS [facility] HMO POS [facility] POS Care Teams Can Maker Relationship Specialty Start Date End Date Goldy Engel MD [address] [place] [address] Dr BLAKELY [address] [place] [id number] PCP - General Internal Medicine 05/05/19 Goldy Engel MD [address] [place] [address] Dr BLAKELY [address] [place] [id number] 05/05/19 Additional Source Comments The information contained in this document represents components of the legal health record. It is not the complete legal health record.[facility]
== END 2025-02-17 11:09 | disposition home or self-care (01) ==
LOC: HO.HUSH 09:06
PROVIDERS: PCP Internal Medicine; Visit Provider Urology
DX: R32 Unspecified urinary incontinence (principal); R31.9 Hematuria, unspecified
CPT/HCPCS: 52000

== ENCOUNTER → 2025-02-17 09:05 | Outpatient (BNVA) | payer OTHER, SELFPAY | PROVIDERS: PCP Internal Medicine; Visit Provider Urology | DX: R32 Unspecified urinary incontinence (principal); R31.9 Hematuria, unspecified | CPT/HCPCS: 52000; 81003 ==